=== PATIENT | female | born 1940 | race Caucasian/White ===

== ENCOUNTER 2020-05-23 12:27 | Outpatient (REF) | payer MEDICARE, BC, SELFPAY ==
[2020-05-23 14:48] LABS: Hematocrit 43.3 % (37-47); Hemoglobin 14.8 g/dl (12.0-16.0); Mean Corpuscular HGB Conc 34.2 g/dl (31.0-35.0); Mean Corpuscular Hemoglobin 36.3 pg (27.0-33.0); Mean Corpuscular Volume 106.1 fL (80-98); Platelet Count 227 X10*3/uL (160-400); Red Blood Count 4.08 X10*6/uL (4.20-5.50); Red Cell Distribution Width 11.9 % (11.0-16.0); White Blood Count 7.8 X10*3/uL (4.8-10.8)
[2020-05-23 15:12] LABS: Alanine Aminotransferase 24 U/L (0-31); Albumin Level 4.4 g/dL (3.5-5.0); Alkaline Phosphatase 82 U/L (39-117); Anion Gap 16 (12-20); Aspartate Amino Transferase 28 U/L (5-31); Bilirubin Total 2.4 mg/dL (0.0-1.0); Blood Urea Nitrogen 13 mg/dL (9-16); Calcium 8.9 mg/dL (8.4-10.2); Carbon Dioxide 23 mmol/L (22-29); Chloride 100 mmol/L (96-108); Cholesterol 237 mg/dL; Estimated Glomerular Filt Rate > 60; Glucose Fasting 96 mg/dL (60-99); HDL Cholesterol 77 mg/dL; LDL Cholesterol Calculated 140 mg/dl; Potassium 3.9 mmol/L (3.3-5.1); Sodium 135 mmol/L (135-145); Total Protein 7.3 g/dL (6.5-8.0); Triglycerides 104 mg/dL
[2020-05-23 15:33] LABS: Thyroid Stimulating Hormone 1.58 uIU/mL (0.32-4.0)
== END 2020-05-23 12:28 | disposition home or self-care (01) ==
LOC: HO.HMGCLDS 12:27
PROVIDERS: PCP Internal Medicine; Visit Provider Internal Medicine
DX: I10 Essential (primary) hypertension (principal); E55.9 Vitamin D deficiency, unspecified; E78.2 Mixed hyperlipidemia
CPT/HCPCS: 36415; 80053; 80061; 84443; 85027

== ENCOUNTER 2020-12-25 09:07 | Outpatient (REF) | payer MEDICARE, BC, SELFPAY ==
[2020-12-25 12:32] LABS: Alanine Aminotransferase 32 U/L (0-31); Albumin Level 4.4 g/dL (3.5-5.0); Alkaline Phosphatase 86 U/L (39-117); Anion Gap 16 (12-20); Aspartate Amino Transferase 30 U/L (5-31); Bilirubin Total 1.8 mg/dL (0.0-1.0); Blood Urea Nitrogen 11 mg/dL (9-16); Calcium 9.9 mg/dL (8.4-10.2); Carbon Dioxide 24 mmol/L (22-29); Chloride 103 mmol/L (96-108); Cholesterol 229 mg/dL; Estimated Glomerular Filt Rate > 60; Glucose Fasting 110 mg/dL (60-99); HDL Cholesterol 65 mg/dL; LDL Cholesterol Calculated 132 mg/dl; Potassium 5.3 mmol/L (3.3-5.1); Sodium 138 mmol/L (135-145); Total Protein 7.4 g/dL (6.5-8.0); Triglycerides 164 mg/dL
== END 2020-12-25 09:08 | disposition home or self-care (01) ==
LOC: HO.HMGCLDS 09:07
PROVIDERS: PCP Internal Medicine; Visit Provider Internal Medicine
DX: E78.5 Hyperlipidemia, unspecified (principal); I10 Essential (primary) hypertension
CPT/HCPCS: 36415; 80053; 80061

== ENCOUNTER 2021-06-25 09:52 | Outpatient (REF) | payer MEDICARE, BC, SELFPAY ==
[2021-06-25 11:53] LABS: Hematocrit 44.7 % (37.0-47.0); Hemoglobin 15.2 g/dl (12.0-16.0); Mean Corpuscular Hemoglobin 35.7 pg (27.0-33.0); Mean Corpuscular Volume 104.9 fL (80.0-98.0); Mean Platelet Volume 10.4 fL (9.4-12.3); Platelet Count 237 X10*3/uL (160-400); Red Blood Count 4.26 X10*6/uL (4.20-5.50); Red Cell Distribution Width 12.5 % (11.0-16.0); White Blood Count 7.1 X10*3/uL (4.8-10.8)
[2021-06-25 11:57] LABS: Alanine Aminotransferase 27 U/L (0-31); Albumin Level 4.1 g/dL (3.5-5.0); Alkaline Phosphatase 95 U/L (39-117); Anion Gap 15 (12-20); Aspartate Amino Transferase 29 U/L (5-31); Bilirubin Total 2.1 mg/dL (0.0-1.0); Blood Urea Nitrogen 8 mg/dL (9-16); Calcium 9.9 mg/dL (8.4-10.2); Carbon Dioxide 25 mmol/L (22-29); Chloride 101 mmol/L (96-108); Cholesterol 220 mg/dL; Estimated Glomerular Filt Rate > 60; Glucose Fasting 106 mg/dL (60-99); HDL Cholesterol 71 mg/dL; LDL Cholesterol Calculated 128 mg/dl; Potassium 4.4 mmol/L (3.3-5.1); Sodium 137 mmol/L (135-145); Total Protein 7.3 g/dL (6.5-8.0); Triglycerides 106 mg/dL
[2021-06-25 12:22] LABS: TSH reflex Free T4 1.86 uIU/mL (0.32-4.0); Vitamin D 25-OH Total 36.9 ng/mL (>30)
[2021-06-25 12:31] LABS: Folate 15.5 ng/mL (> or = 4.0); Vitamin B12 320 pg/mL (200-900)
== END 2021-06-25 09:53 | disposition home or self-care (01) ==
LOC: HO.HMGCLDS 09:52
PROVIDERS: Visit Provider Internal Medicine
DX: Z00.00 Encounter for general adult medical examination without abnormal findings (principal); I10 Essential (primary) hypertension; E78.5 Hyperlipidemia, unspecified
CPT/HCPCS: 36415; 80053; 80061; 82306; 82607; 82746; 84443; 85027

== ENCOUNTER 2022-06-10 11:16 | Outpatient (REF) | payer MEDICARE, BC, SELFPAY ==
[2022-06-10 14:05] LABS: MANUAL DIFF FLAG NO
[2022-06-10 14:14] LABS: Basophils Percent Auto 0.6 % (0-2); Eosinophils Absolute Auto 0.1 X10*3/uL (0.0-0.4); Eosinophils Percent Auto 1.5 % (0-4); Hematocrit 45.7 % (37.0-47.0); Hemoglobin 15.7 g/dl (12.0-16.0); Imm Gran Abs Auto 0.03 X10*3/uL (0.00-0.03); Imm Gran Pct Auto 0.4 % (0.0-0.4); Lymphocytes Absolute Auto 2.1 X10*3/uL (1.2-4.9); Lymphocytes Percent Auto 29.4 % (20-40); Mean Corpuscular HGB Conc 34.4 g/dl (31.0-35.0); Mean Corpuscular Hemoglobin 35.8 pg (27.0-33.0); Mean Corpuscular Volume 104.3 fL (80.0-98.0); Mean Platelet Volume 9.9 fL (9.4-12.3); Monocytes Absolute Auto 0.5 X10*3/uL (0.1-1.2); Monocytes Percent Auto 7.2 % (2-11); Neutrophils Absolute Auto 4.4 x10*3/uL (2.0-8.3); Neutrophils Percent Auto 60.9 % (45-73); Platelet Count 244 X10*3/uL (160-400); Red Blood Count 4.38 X10*6/uL (4.20-5.50); Red Cell Distribution Width 11.9 % (11.0-16.0); White Blood Count 7.3 X10*3/uL (4.8-10.8)
[2022-06-10 14:47] LABS: Alanine Aminotransferase 29 U/L (0-31); Alkaline Phosphatase 108 U/L (39-117); Anion Gap 13 (12-20); Aspartate Amino Transferase 27 U/L (5-31); Bilirubin Total 1.9 mg/dL (0.0-1.0); Blood Urea Nitrogen 8 mg/dL (9-16); Calcium 9.2 mg/dL (8.4-10.2); Carbon Dioxide 26 mmol/L (22-29); Chloride 103 mmol/L (96-108); Cholesterol 225 mg/dL; Estimated Glomerular Filt Rate > 60; Glucose Fasting 101 mg/dL (60-99); HDL Cholesterol 66 mg/dL; LDL Cholesterol Calculated 141 mg/dl; Potassium 3.9 mmol/L (3.3-5.1); Sodium 138 mmol/L (135-145); Total Protein 6.8 g/dL (6.5-8.0); Triglycerides 93 mg/dL
[2022-06-10 15:03] LABS: TSH reflex Free T4 1.89 uIU/mL (0.32-4.0); Vitamin D 25-OH Total 38.5 ng/mL (>30)
== END 2022-06-10 11:17 | disposition home or self-care (01) ==
LOC: HO.HMGCLDS 11:16
PROVIDERS: PCP Internal Medicine; Visit Provider Internal Medicine
DX: Z00.00 Encounter for general adult medical examination without abnormal findings (principal); E78.5 Hyperlipidemia, unspecified; I10 Essential (primary) hypertension
CPT/HCPCS: 36415; 80053; 80061; 82306; 84443; 85025

== ENCOUNTER 2022-12-09 08:39 | Outpatient (AMB) | payer MEDICARE, BC, SELFPAY ==
[2022-12-09 08:41] VITALS: BP 138/74; PULSE 75; O2SAT 97; BMI 28.1
--- NOTE | 2022-12-09 08:41 | AM.OFFVISMDC ---
Intake Vital Signs 12/09/22 08:41 Height 5 ft Weight 144 lb BMI 28.1 BP 138/74 Blood Pressure Location Lt brachial Position Sitting Pulse 75 Pulse Source Pulse Oximeter Pulse Oximetry (%) 97 Oxygen Delivery Method Room Air Intake Visit Reasons: SWV G0439/HTN Allergies amoxicillin Allergy (Unknown, Verified 12/09/22 08:44) Rash clavulanic acid [Augmentin] Allergy (Unknown, Verified 12/09/22 08:44) Rash Medication List - Last Reconciled 12/09/22 by Jud Nino MD amlodipine 2.5 mg PO DAILY calcipotriene 0.005% 1 appl topical BEDTIME clobetasol 0.05% 1 appl topical DAILY latanoprost 0.005% 1 drp ophthalmic (eye) BEDTIME olmesartan 20 mg PO DAILY pravastatin 40 mg PO DAILY HPI SWV G0439/HTN HPI Details Pt presents for annual. Patient's daughter is concerned about patient's declining memory, difficulty with word finding. Pt still lives alone, drives, cooks occasionally. She feels lonely since her but denies depressionInitiated the conversation about Advanced Directives. Advanced Directives help? patients prepare for current and future decisions about their medical treatment? and place of care. Discussed with patient that it is a process where a patients? current condition and prognosis are reviewed, their wishes for information? regarding their illness are elicited, and likely medical dilemmas are presented? and options discussed. The form can be amended as needed, reviewed yearly and? make changes as needed IPPE/AWV ? year old presents? for her ? Annual? Wellness Visit, initial visit.? Medical / Social History Reviewed? Past Medical History ?Yes? . ? [place]? of Care / Care Team list updated ?Yes . ? Surgical/Hospitalization? History ?Yes . ? Current Medications? (including OTC and supplements) ?Yes . ? Family History ?Yes? . ? Tobacco? Control form ?Yes . ? AUDIT-C (Alcohol use) form? ?Yes . ? Illicit drug use in Social? History ?Yes . ? Current diagnosis of? depression? ?No ? Appropriate PHQ2/PHQ9? completed ?Yes . ? Data entered by ?Medical? Police Inspector and reviewed by provider ? Fall Risk ? Fall? History? Have you had any falls with? injury in the past year? ?No . ? Have you had two or more? falls in the past year? ?No . ? Fall Risk Assessment: ?No? falls in the past year . ? HRA filled out by? the patient, reviewed by Provider and scanned. ? IPPE/AWV ? Balance? [place]? ?Yes . ? Tandem? walk ?Yes . ? Walk and? Turn ?Yes . ? Rise from? sit to stand ?Yes . ?Vision? Corrective? lens ?Yes ? Vision? screen ? Up-to-date, has an appointment [] for vision? screening and glaucoma screening ?Hearing? Whisper? test ?pass .? Initiated the conversation about Advanced Directives. Advanced Directives help? patients prepare for current and future decisions about their medical treatment? and place of care. Discussed with patient that it is a process where a patients? current condition and prognosis are reviewed, their wishes for information? regarding their illness are elicited, and likely medical dilemmas are presented? and options discussed. The form can be amended as needed, reviewed yearly and? make changes as needed Written? Plan?Completed. See Patient? Documents. [facility] Medical History Chronic bilateral low back pain Annual physical exam Aortic valve sclerosis IBS (irritable bowel syndrome) Osteopenia Hyperlipidemia HTN (hypertension) Family History Father Heart problem Mother Hypertension Family history of thyroid problem Brother Heart problem Social History Housing: House Alcohol intake: never Patient Tobacco Use Status: Never used Tobacco e-Cigarette/Vaping Use: Never Used Current occupational status: retired Cognitive needs: No Hearing needs: No Vision needs: Yes Questionnaire Medicare Wellness Checkup What is your age?: 78 or older What gender do you identify with?: female During the past 4 weeks, how much have you been bothered by emotional problems such as feeling anxious, depressed, irritable, sad or downhearted, and blue?: slightly During the past 4 weeks, has your physical & emotional health limited your social activities with family, friends, neighbors, or groups?: not at all During the past 4 weeks, how much bodily pain have you generally had?: mild pain During the past 4 weeks, was someone available to help you if you needed & wanted help?: yes, as much as I wanted During the past 4 weeks, what was the hardest physical activity you could do for at least 2 minutes?: heavy Can you get to places out of walking distance without help? (For eg., can you travel alone on buses, taxis or drive your car?): Yes Can you go shopping for groceries or clothes without someone's help?: Yes Can you prepare your own meals?: Yes Can you do your housework without help?: Yes Because of any health problems, do you need the help of another person with your personal care needs such as eating, bathing, dressing or getting around the house?: No Can you handle your own money without help?: Yes During the past 4 weeks, how would you rate your health in general?: very good During the past 4 weeks how have things been going for you?: pretty well Are you having difficulties driving your car?: no Do you always fasten your seat belt when you are in a car?: yes, usually During past 4 weeks, have you been bothered by the following: never: Falling or dizzy when standing up, Sexual problems?, Trouble eating well?, Teeth or denture problems?, Problems using the telephone? and Tiredness or fatigue? Have you fallen 2 or more times in the past year?: No Are you afraid of falling?: No Are you a smoker?: no During the past 4 weeks, how many drinks of wine, beer, or other alcoholic beverages did you have?: 2-5 drinks per week Do you exercise for about 20 minutes 3 or more times a week?: no, I usually do not exercise this much Have you been given information to help with the following?: no: Hazards in your house that might hurt you? and no: Keeping track of your medications? How often do you have trouble taking medicines the way you have been told to take them?: I always take medicine as prescribed How confident are you that you can control & manage most of your health problems?: very confident What is your race?: White Mini Mental State Exam (MMSE) Orientation What is the (year) (season) (date) (day) (month)?: year, season, date, day and month Where are we (state) (county) (town or city) (hospital) (floor)?: state, county, town or city, hospital/clinic and floor Registration Name of 3 unrelated objects clearly and slowly, then ask patient to repeat all 3 of them. (1st repeat determines score. Make sure they can repeat all three): object 1, object 2 and object 3 Attention & Calculation (CHOOSE ONE) Ask pt to begin with 100 & count backward by 7. Stop after 5 repeats. If pt cannot ask them to spell the word WORLD backward.: 93 Recall Ask patient to repeat the 3 items from question #3.: object 1, object 2 and object 3 Language Show patient a wristwatch & ask what it is. Repeat for pencil.: watch and pencil Ask the patient to repeat the phrase 'No ifs, ands, or buts' after you.: correct Ask the patient to 'take a piece of paper with their right hand' 'fold paper in half' 'place paper on floor': take paper in right hand, fold paper in half and place paper on floor Print the sentence 'CLOSE YOUR EYES' on a piece. If patient actually closes eyes then score.: followed written direction Give patient a blank piece of paper & ask to write a sentence. Score if it contains a noun & verb.: sentence contains subject and verb Score Score: 25 Activity of Daily Living Bathing - sponge bath, tub bath or shower: receives no assistance (gets in/out by self, if usual bathing means Dressing - getting clothes from closets & drawers, including inner/outer garments & fasteners.: gets clothes & gets completely dressed without help Toileting - going to the 'toilet room' for urine/bowel elimination & cleaning self/arranging clothes: goes to toilet room, cleans self, arranges clothes without help Transfer: moves in & out of bed and chair without help (may use support object) Continence: controls urination/bowel movements completely by self Feeding: feeds self without help Total Score: 0 Information obtained from: patient Using telephone: independent Traveling: independent Shopping: independent Preparing meals: independent Housework: independent Taking medicine: independent Managing money: independent PHQ-9 Over the last 2 weeks, how often have you been bothered by any of the following problems? 1. Little interest or pleasure in doing things: several days 2. Feeling down, depressed, or hopeless: several days 3. Trouble falling or staying asleep, or sleeping too much: not at all 4. Feeling tired or having little energy: not at all 5. Poor appetite or overeating: not at all 6. Feeling bad about yourself - or that you are a failure or have let yourself or your family down: not at all 7. Trouble concentrating on things, such as reading the newspaper or watching television: not at all 8. Moving or speaking so slowly that other people could have noticed. Or the opposite - being so fidgety or restless that you have been moving around a lot more than usual: not at all 9. Thoughts that you would be better off or of hurting yourself in some way: not at all Total score: 2 Depression Screening Interpretation: Negative Source: Developed by Drs. Davey Quevedo, Gi Lamas, Wilson Ramirez and colleagues, with an educational chandrakant from [employer]. Review of Systems Const All systems reviewed & are unremarkable except as noted in HPI and below Reports no additional complaints Eyes Reports no additional complaints ENT Reports no additional complaints Card Reports no additional complaints Resp Reports no additional complaints GI Reports no additional complaints Reports no additional complaints Physical Exam Vital Signs: Last Vital Signs Pulse 75 12/09/22 08:41 BP 138/74 12/09/22 08:41 Pulse Ox 97 12/09/22 08:41 Oxygen Delivery Method Room Air 12/09/22 08:41 BMI result Body Mass Index 28.1 Const General: no acute distress HEENT Head: Yes normal to inspection Ears: hearing grossly normal bilaterally Neck Neck: Yes no lymphadenopathy and Yes supple Resp Effort & Inspection: normal respiratory effort Auscultation: clear to auscultation bilaterally Cardio Rhythm: regular rhythm Heart sounds: S1 normal heart sound present and S2 normal heart sound present GI Inspection: Yes normal to inspection Palpation (GI): Soft to palpation Percussion: Yes normal to percussion Auscultation: normal bowel sounds Extrem General: Yes no clubbing, cyanosis or edema Assessment & Plan Assessment & Plan (1) Annual physical exam: Code(s): Z00.00 - Encounter for general adult medical examination without abnormal findings Plan: well balanced, diet, regular physical activity, social interactions discussed. check labs today f/u 6 months (2) Hyperlipidemia: Code(s): E78.5 - Hyperlipidemia, unspecified (3) HTN (hypertension): Code(s): I10 - Essential (primary) hypertension (4) Memory loss: Code(s): R41.3 - Other amnesia Plan: check TSH, vit B12, and D level Orders: Orders Comprehensive [place]. Panel Fast Today E78.5 - Hyperlipidemia, unspecified, I10 - Essential (primary) hypertension, R41.3 - Other amnesia, Z00.00 - Encounter for general adult medical examination without abnormal findings Vitamin B12 and Folate Today E53.8 - Deficiency of other specified B group vitamins, E55.9 - Vitamin D deficiency, unspecified, E78.5 - Hyperlipidemia, unspecified, I10 - Essential (primary) hypertension, R41.3 - Other amnesia Complete Blood Count Auto Diff Today E78.5 - Hyperlipidemia, unspecified, I10 - Essential (primary) hypertension, R41.3 - Other amnesia, Z00.00 - Encounter for general adult medical examination without abnormal findings Lipid Panel Today E78.5 - Hyperlipidemia, unspecified, I10 - Essential (primary) hypertension, R41.3 - Other amnesia, Z00.00 - Encounter for general adult medical examination without abnormal findings TSH reflex Free T4 Today E78.5 - Hyperlipidemia, unspecified, I10 - Essential (primary) hypertension, R41.3 - Other amnesia, Z00.00 - Encounter for general adult medical examination without abnormal findings Vitamin D 25-OH Total Today E55.9 - Vitamin D deficiency, unspecified, E78.5 - Hyperlipidemia, unspecified, I10 - Essential (primary) hypertension, R41.3 - Other amnesia Medications: Refilled calcipotriene 0.005% 1 appl topical BEDTIME 60 grams 3RF clobetasol 0.05% 1 appl topical DAILY 60 grams 3RF Quality Reporting (2019) Depression/Bipolar (159/160/161/177) PHQ-9: Total score: 2 Coding Level of Care Code Medicare Subsequent (G0439) Diagnoses Annual physical exam Z00.00 Hyperlipidemia E78.5 HTN (hypertension) I10 Memory loss R41.3 CPT Codes Advance Care Planning - Time spent: 1-15 minutes, not on file ([id number]) Advance Care Planning Advance Care Planning discussion: Exists, not on file Forms completed: Health Care Proxy Time spent: 1-15 minutes, not on file
== END 2022-12-09 09:35 | disposition home or self-care (01) ==
PROVIDERS: Visit Provider Internal Medicine
DX: Z00.00 Encounter for general adult medical examination without abnormal findings (principal); E78.5 Hyperlipidemia, unspecified; I10 Essential (primary) hypertension; R41.3 Other amnesia
CPT/HCPCS: 1124F; G0439

== ENCOUNTER 2022-12-09 09:23 | Outpatient (REF) | payer MEDICARE, BC, SELFPAY ==
[2022-12-09 11:15] LABS: MANUAL DIFF FLAG NO
[2022-12-09 11:24] LABS: Basophils Percent Auto 0.6 % (0-2); Eosinophils Absolute Auto 0.1 X10*3/uL (0.0-0.4); Eosinophils Percent Auto 1.3 % (0-4); Hematocrit 44.2 % (37.0-47.0); Hemoglobin 15.2 g/dl (12.0-16.0); Imm Gran Abs Auto 0.02 X10*3/uL (0.00-0.03); Imm Gran Pct Auto 0.4 % (0.0-0.4); Lymphocytes Absolute Auto 1.4 X10*3/uL (1.2-4.9); Lymphocytes Percent Auto 26.4 % (20-40); Mean Corpuscular HGB Conc 34.4 g/dl (31.0-35.0); Mean Corpuscular Hemoglobin 36.9 pg (27.0-33.0); Mean Corpuscular Volume 107.3 fL (80.0-98.0); Mean Platelet Volume 10.1 fL (9.4-12.3); Monocytes Absolute Auto 0.5 X10*3/uL (0.1-1.2); Monocytes Percent Auto 8.9 % (2-11); Neutrophils Absolute Auto 3.3 x10*3/uL (2.0-8.3); Neutrophils Percent Auto 62.4 % (45-73); Platelet Count 228 X10*3/uL (160-400); Red Blood Count 4.12 X10*6/uL (4.20-5.50); Red Cell Distribution Width 11.9 % (11.0-16.0); White Blood Count 5.3 X10*3/uL (4.8-10.8)
[2022-12-09 12:47] LABS: Alanine Aminotransferase 28 U/L (0-31); Albumin Level 4.2 g/dL (3.5-5.0); Alkaline Phosphatase 77 U/L (39-117); Anion Gap 15 (12-20); Aspartate Amino Transferase 33 U/L (5-31); Bilirubin Total 1.5 mg/dL (0.0-1.0); Blood Urea Nitrogen 13 mg/dL (9-16); Calcium 9.7 mg/dL (8.4-10.2); Carbon Dioxide 26 mmol/L (22-29); Chloride 103 mmol/L (96-108); Cholesterol 229 mg/dL (<200); Estimated Glomerular Filt Rate > 60; Glucose Fasting 97 mg/dL (60-99); HDL Cholesterol 68 mg/dL (>40); LDL Cholesterol Calculated 143 mg/dL (<100); Potassium 4.3 mmol/L (3.3-5.1); Sodium 140 mmol/L (135-145); Total Protein 7.5 g/dL (6.5-8.0); Triglycerides 94 mg/dL (<150)
[2022-12-09 13:06] LABS: TSH reflex Free T4 1.57 uIU/mL (0.32-4.0); Vitamin D 25-OH Total 24.7 ng/mL (>30)
[2022-12-09 13:16] LABS: Vitamin B12 324 pg/mL (200-900)
== END 2022-12-09 09:24 | disposition home or self-care (01) ==
LOC: HO.HMGCLDS 09:23
PROVIDERS: PCP Internal Medicine; Visit Provider Internal Medicine
DX: Z00.00 Encounter for general adult medical examination without abnormal findings (principal); E78.5 Hyperlipidemia, unspecified; I10 Essential (primary) hypertension; R41.3 Other amnesia; E55.9 Vitamin D deficiency, unspecified; E53.8 Deficiency of other specified B group vitamins
CPT/HCPCS: 36415; 80053; 80061; 82306; 82607; 82746; 84443; 85025

== ENCOUNTER 2023-06-16 09:47 | Outpatient (AMB) | payer MEDICARE, BC, SELFPAY ==
[2023-06-16 09:49] VITALS: BP 126/80; PULSE 88; O2SAT 95; BMI 29.7
--- NOTE | 2023-06-16 09:49 | MHC.PC.OV ---
Vital Signs 06/16/23 09:49 Height 5 ft Weight 152 lb BMI 29.7 BP 126/80 Blood Pressure Location Lt brachial Position Sitting Pulse 88 Pulse Source Pulse Oximeter Pulse Oximetry (%) 95 Oxygen Delivery Method Room Air Intake Visit Reasons: 6 month follow up Intake Note: Pt is here today for 6 months follow up visit. Allergies amoxicillin Allergy (Unknown, Verified 06/16/23 09:52) Rash clavulanic acid [Augmentin] Allergy (Unknown, Verified 06/16/23 09:52) Rash Medication List - Last Reconciled 06/16/23 by Jud Nino MD amlodipine 2.5 mg PO DAILY calcipotriene 0.005% 1 appl topical BEDTIME clobetasol 0.05% 1 appl topical DAILY latanoprost 0.005% 1 drp ophthalmic (eye) BEDTIME olmesartan 20 mg PO DAILY pravastatin 40 mg PO DAILY Tobacco use date assessed: 06/16/23 Fall risk assessment: No Falls in past year Last assessed Fall Risk: 06/16/23 Dental Screening Dental Screen Date: 06/16/23 Did you have a dental visit in the last 12 months?: Yes Did you have a dental problem in the last 6 months where you did not have access to dental care?: No Was dental information given to patient?: Patient has dentist HPI 6 month follow up HPI Details PATIENT PRESENTS FOR THE FOLLOW-UP ON HYPERTENSION HYPERLIPIDEMIA, stable on current medications. Patient's granddaughter is getting in September [facility] Medical History Chronic bilateral low back pain Annual physical exam Aortic valve sclerosis IBS (irritable bowel syndrome) Osteopenia Hyperlipidemia HTN (hypertension) Surgical History Hx of section Hx of appendectomy Family History Father Heart problem Mother Hypertension Family history of thyroid problem Brother Heart problem Social History Housing: House Alcohol intake: never Patient Tobacco Use Status: Never used Tobacco e-Cigarette/Vaping Use: Never Used service: No Current occupational status: retired Cognitive needs: No Hearing needs: No Vision needs: Yes Questionnaire PHQ-9 Over the last 2 weeks, how often have you been bothered by any of the following problems? 1. Little interest or pleasure in doing things: several days 2. Feeling down, depressed, or hopeless: several days 3. Trouble falling or staying asleep, or sleeping too much: not at all 4. Feeling tired or having little energy: not at all 5. Poor appetite or overeating: not at all 6. Feeling bad about yourself - or that you are a failure or have let yourself or your family down: not at all 7. Trouble concentrating on things, such as reading the newspaper or watching television: not at all 8. Moving or speaking so slowly that other people could have noticed. Or the opposite - being so fidgety or restless that you have been moving around a lot more than usual: not at all 9. Thoughts that you would be better off or of hurting yourself in some way: not at all Total score: 2 Depression Screening Interpretation: Negative Depression Screening Done: Yes Source: Developed by Drs. Davey Quevedo, Gi Lamas, Wilson Ramirez and colleagues, with an educational chandrakant from [employer] Thrive Questionnaire Date Thrive assessed: 06/16/23 I am a: Patient What is your living situation today?: I have a steady place to live Within the past 12 months, did the food you bought not last and you didn't have the money to get more?: Never true Within the past 12 months, did you worry whether your food would run out before you got money to buy more?: Never true Do you have trouble paying for medicines?: No Do you have trouble getting transportation to medical appointments?: No Do you have trouble paying your heating and electricity bill?: No Do you have trouble taking care of your child, family member or friend?: No Do you have trouble with day-to-day activities such as bathing, preparing meals, shopping, managing finances, etc.?: No Are you currently unemployed and looking for a job?: No Are you interested in more education?: No Please select the resources that you would like help with: None Currently or been in a relationship where the following occur: no concerns reported THRIVE Score: 0 AUDIT C Alcohol Use Questionnaire (AUDIT-C) 1. How often do you have a drink containing alcohol?: Monthly or less 2. How many drinks containing alcohol do you have on a typical day when you are drinking?: 1 or 2 3. How often do you have six or more drinks on one occasion?: Never Total Score: 1 ASAF-7 AMB Questionnaire ASAF-7 Date ASAF - 7 assessed: 06/16/23 Feeling nervous, anxious, or on edge: 0 = Not at all Not being able to stop or control worryin = Not at all Worrying too much about different things: 0 = Not at all Trouble relaxin = Not at all Being so restless that it is hard to sit still: 0 = Not at all Becoming easily annoyed or irritable: 0 = Not at all Feeling afraid as if something awful might happen: 0 = Not at all Total ASAF-7 score (0-4 normal; 5-9 mild; 10-14 moderate; 15-21 severe): 0 Source: Developed by Drs. Davey Quevedo, Gi Lamas, Wilson Ramirez and colleagues, with an educational chandarkant from [employer]. Review of Systems Const All systems reviewed & are unremarkable except as noted in HPI and below Eyes Reports no additional complaints ENT Reports no additional complaints Card Reports no additional complaints Resp Reports no additional complaints GI Reports no additional complaints Reports no additional complaints Physical exam (Primary Care) Vital Signs: Last Vital Signs Pulse 88 06/16/23 09:49 BP 126/80 06/16/23 09:49 Pulse Ox 95 06/16/23 09:49 Oxygen Delivery Method Room Air 06/16/23 09:49 BMI result Body Mass Index 29.7 Tobacco/Smoking Status: Tobacco use Status Tobacco use date assessed 06/16/23 06/16/23 09:55 Patient Tobacco Use Status Never used Tobacco 06/16/23 09:55 e-Cigarette/Vaping Use Never Used 06/16/23 09:55 PHQ-9: PHQ-9 Score PHQ-9: Total score 2 06/16/23 09:55 Depression Screening Interpretation: Negative Thrive Assessment: Date of Thrive Assessment Date Thrive assessed 06/16/23 06/16/23 09:55 Currently or been in a relationship where the following occur: no concerns reported Const General: no acute distress HENMT Head: Yes normal to inspection Throat: Yes posterior oropharynx normal Eyes General: appearance normal, both eyes and all related structures Neck Neck: Yes no lymphadenopathy and Yes supple Resp Effort & Inspection: normal respiratory effort Auscultation: clear to auscultation bilaterally Cardio Rhythm: regular rhythm Heart sounds: S1 normal heart sound present and S2 normal heart sound present GI Inspection: Yes normal to inspection Palpation (GI): Soft to palpation Percussion: Yes normal to percussion Auscultation: normal bowel sounds Assessment and Plan Assessment & Plan (1) Vitamin D deficiency: Code(s): E55.9 - Vitamin D deficiency, unspecified Plan: Restart vitamin-D supplement (2) Vitamin B12 deficiency: Code(s): E53.8 - Deficiency of other specified B group vitamins Plan: Continue B12 supplement (3) Hyperlipidemia: Code(s): E78.5 - Hyperlipidemia, unspecified Plan: Change pravastatin to atorvastatin 20 mg a day and check lipid profile in 2 months (4) HTN (hypertension): Code(s): I10 - Essential (primary) hypertension Plan: Continue current medications, return in December for physical Orders: Orders Lipid Panel 2 Months E53.8 - Deficiency of other specified B group vitamins, E55.9 - Vitamin D deficiency, unspecified, E78.5 - Hyperlipidemia, unspecified, I10 - Essential (primary) hypertension Comprehensive [place]. Panel Fast 2 Months E53.8 - Deficiency of other specified B group vitamins, E55.9 - Vitamin D deficiency, unspecified, E78.5 - Hyperlipidemia, unspecified, I10 - Essential (primary) hypertension Vitamin B12 and Folate 2 Months E53.8 - Deficiency of other specified B group vitamins, E55.9 - Vitamin D deficiency, unspecified, E78.5 - Hyperlipidemia, unspecified, I10 - Essential (primary) hypertension Comprehensive [place]. Panel Fast 6 Months E78.5 - Hyperlipidemia, unspecified, I10 - Essential (primary) hypertension Vitamin D 25-OH Total 2 Months E53.8 - Deficiency of other specified B group vitamins, E55.9 - Vitamin D deficiency, unspecified, E78.5 - Hyperlipidemia, unspecified, I10 - Essential (primary) hypertension Complete Blood Count Auto Diff 2 Months E53.8 - Deficiency of other specified B group vitamins, E55.9 - Vitamin D deficiency, unspecified, E78.5 - Hyperlipidemia, unspecified, I10 - Essential (primary) hypertension Lipid Panel 6 Months E78.5 - Hyperlipidemia, unspecified, I10 - Essential (primary) hypertension Medications: New atorvastatin 20 mg PO BEDTIME 90 tabs 2RF atorvastatin 20 mg PO BEDTIME 90 tabs 2RF Refilled amlodipine 2.5 mg PO DAILY 90 tabs 3RF amlodipine 2.5 mg PO DAILY 90 tabs 3RF olmesartan 20 mg PO DAILY 90 tabs 3RF I10 - Essential (primary) hypertension olmesartan 20 mg PO DAILY 90 tabs 3RF I10 - Essential (primary) hypertension Coding Level of Care Code Est Pt Level 4 (05416) Diagnoses Vitamin D deficiency E55.9 Vitamin B12 deficiency E53.8 Hyperlipidemia E78.5 HTN (hypertension) I10
== END 2023-06-16 10:40 | disposition home or self-care (01) ==
PROVIDERS: PCP Internal Medicine; Visit Provider Internal Medicine
DX: E55.9 Vitamin D deficiency, unspecified (principal); E53.8 Deficiency of other specified B group vitamins; E78.5 Hyperlipidemia, unspecified; I10 Essential (primary) hypertension
CPT/HCPCS: 99214

== ENCOUNTER 2023-10-19 11:11 | Outpatient (AMB) | payer MEDICARE, BC, SELFPAY ==
[2023-10-19 11:31] VITALS: BP 114/58; PULSE 77; O2SAT 97; BMI 26.8
--- NOTE | 2023-10-19 11:31 | MHC.PC.OV ---
Vital Signs 10/19/23 11:31 Height 5 ft Weight 137 lb BMI 26.8 BP 114/58 L Blood Pressure Location Rt brachial Position Sitting Pulse 77 Pulse Source Pulse Oximeter Pulse Oximetry (%) 97 Oxygen Delivery Method Room Air Intake Visit Reasons: Regular visit Intake Note: Pt is here today for a Hospital follow up visit. Allergies amoxicillin Allergy (Unknown, Verified 10/19/23 11:34) Rash clavulanic acid [Augmentin] Allergy (Unknown, Verified 10/19/23 11:34) Rash Medication List - Last Reconciled 10/19/23 by Jud Nino MD amlodipine 2.5 mg PO DAILY atorvastatin 20 mg PO BEDTIME calcipotriene 0.005% 1 appl topical BEDTIME clobetasol 0.05% 1 appl topical DAILY latanoprost 0.005% 1 drp ophthalmic (eye) BEDTIME olmesartan 20 mg PO DAILY Tobacco use date assessed: 10/19/23 Fall risk assessment: No Falls in past year Last assessed Fall Risk: 10/19/23 Dental Screening Dental Screen Date: 06/16/23 HPI Regular visit HPI Details Patient presents for the follow-up of hospitalization at [facility] for hypotension acute renal failure dehydration. Renal function improved with IV fluids. Sepsis workup was negative. CTA of the head was negative for significant stenosis in major arteries in the head and neck and brain MRI was negative for acute CVA. Patient feels better. She denies episodes of dizziness lightheadedness chest pain palpitations or shortness of breath. she lives alone but her daughter checks on her regularly. [facility] Medical History Chronic bilateral low back pain Annual physical exam Aortic valve sclerosis IBS (irritable bowel syndrome) Osteopenia Hyperlipidemia HTN (hypertension) Surgical History Hx of section Hx of appendectomy Family History Father Heart problem Mother Hypertension Family history of thyroid problem Brother Heart problem Social History Housing: House Alcohol intake: never Patient Tobacco Use Status: Never used Tobacco e-Cigarette/Vaping Use: Never Used service: No Current occupational status: retired Cognitive needs: No Hearing needs: No Vision needs: Yes Questionnaire Thrive Questionnaire Date Thrive assessed: 06/16/23 ASAF-7 AMB Questionnaire ASAF-7 Date ASAF - 7 assessed: 06/16/23 Source: Developed by Drs. Davey Quevedo, Gi Lamas, Wilson Ramirez and colleagues, with an educational chandrakant from [employer]. Review of Systems Const All systems reviewed & are unremarkable except as noted in HPI and below Eyes Reports no additional complaints ENT Reports no additional complaints Card Reports no additional complaints Resp Reports no additional complaints GI Reports no additional complaints Reports no additional complaints Physical exam (Primary Care) Vital Signs: Last Vital Signs Pulse 77 10/19/23 11:31 BP 114/58 L 10/19/23 11:31 Pulse Ox 97 10/19/23 11:31 Oxygen Delivery Method Room Air 10/19/23 11:31 BMI result Body Mass Index 26.8 Tobacco/Smoking Status: Tobacco use Status Tobacco use date assessed 10/19/23 10/19/23 11:38 Patient Tobacco Use Status Never used Tobacco 10/19/23 11:38 e-Cigarette/Vaping Use Never Used 10/19/23 11:38 Thrive Assessment: Date of Thrive Assessment Date Thrive assessed 06/16/23 10/19/23 11:38 Const General: no acute distress HENMT Head: Yes normal to inspection Assessment and Plan Assessment & Plan (1) Hyperlipidemia: Code(s): E78.5 - Hyperlipidemia, unspecified Plan: cont statin (2) HTN (hypertension): Code(s): I10 - Essential (primary) hypertension Plan: Blood pressure is low and olmesartan will be decreased to 5 mg a day patient will continue amlodipine and will follow-up in December (3) Vitamin B12 deficiency: Code(s): E53.8 - Deficiency of other specified B group vitamins Plan: Take vitamin B12 (4) Vitamin D deficiency: Code(s): E55.9 - Vitamin D deficiency, unspecified Plan: Check vitamin-D level (5) Heart murmur: Code(s): R01.1 - Cardiac murmur, unspecified Plan: Obtain echocardiogram (6) Acute kidney failure: Comment: Due to dehydration and hypotension, Hospitalization at [facility] 10/03/23 Code(s): N17.9 - Acute kidney failure, unspecified Plan: Check comprehensive panel today (7) Poor balance: Code(s): R26.89 - Other abnormalities of gait and mobility Plan: Patient was advised to have physical therapy but she declined. She was advised to exercise at [facility] at least 3 times a week Orders: Orders Comprehensive Met. Panel Today E53.8 - Deficiency of other specified B group vitamins, E55.9 - Vitamin D deficiency, unspecified, E78.5 - Hyperlipidemia, unspecified, I10 - Essential (primary) hypertension Vitamin B12 and Folate Today E53.8 - Deficiency of other specified B group vitamins, E55.9 - Vitamin D deficiency, unspecified, E78.5 - Hyperlipidemia, unspecified, I10 - Essential (primary) hypertension Vitamin D 25-OH Total Today E55.9 - Vitamin D deficiency, unspecified Complete Blood Count Auto Diff Today E53.8 - Deficiency of other specified B group vitamins, E55.9 - Vitamin D deficiency, unspecified, E78.5 - Hyperlipidemia, unspecified, I10 - Essential (primary) hypertension TSH reflex Free T4 Today E53.8 - Deficiency of other specified B group vitamins, E55.9 - Vitamin D deficiency, unspecified, E78.5 - Hyperlipidemia, unspecified, I10 - Essential (primary) hypertension CA echo transthoracic complete Today R01.1 - Cardiac murmur, unspecified Medications: New olmesartan 5 mg PO DAILY 90 tabs 0RF Discontinued olmesartan Discontinued Reason: Doctor's Order 20 mg PO DAILY 90 tabs 3RF I10 - Essential (primary) hypertension Coding Level of Care Code Est Pt Level 4 (50804) Diagnoses Hyperlipidemia E78.5 HTN (hypertension) I10 Vitamin B12 deficiency E53.8 Vitamin D deficiency E55.9 Heart murmur R01.1 Acute kidney failure N17.9 Poor balance R26.89
== END 2023-10-19 12:47 | disposition home or self-care (01) ==
PROVIDERS: PCP Internal Medicine; Visit Provider Internal Medicine
DX: E78.5 Hyperlipidemia, unspecified (principal); I10 Essential (primary) hypertension; E53.8 Deficiency of other specified B group vitamins; E55.9 Vitamin D deficiency, unspecified; R01.1 Cardiac murmur, unspecified; N17.9 Acute kidney failure, unspecified; R26.89 Other abnormalities of gait and mobility
CPT/HCPCS: 99214

== ENCOUNTER 2023-10-19 12:34 | Outpatient (REF) | payer MEDICARE, BC, SELFPAY ==
[2023-10-19 16:17] LABS: MANUAL DIFF FLAG NO
[2023-10-19 16:23] LABS: Basophils Percent Auto 0.4 % (0-2); Eosinophils Absolute Auto 0.1 X10*3/uL (0.0-0.4); Eosinophils Percent Auto 0.7 % (0-4); Hematocrit 43.1 % (37.0-47.0); Hemoglobin 14.9 g/dl (12.0-16.0); Imm Gran Abs Auto 0.09 X10*3/uL (0.00-0.03); Imm Gran Pct Auto 0.9 % (0.0-0.4); Lymphocytes Absolute Auto 1.1 X10*3/uL (1.2-4.9); Lymphocytes Percent Auto 11.7 % (20-40); Mean Corpuscular HGB Conc 34.6 g/dl (31.0-35.0); Mean Corpuscular Hemoglobin 36.4 pg (27.0-33.0); Mean Corpuscular Volume 105.4 fL (80.0-98.0); Mean Platelet Volume 10.2 fL (9.4-12.3); Monocytes Absolute Auto 0.7 X10*3/uL (0.1-1.2); Monocytes Percent Auto 7.5 % (2-11); Neutrophils Absolute Auto 7.7 x10*3/uL (2.0-8.3); Neutrophils Percent Auto 78.8 % (45-73); Platelet Count 404 X10*3/uL (160-400); Red Blood Count 4.09 X10*6/uL (4.20-5.50); Red Cell Distribution Width 11.9 % (11.0-16.0); White Blood Count 9.8 X10*3/uL (4.8-10.8)
[2023-10-19 17:05] LABS: Alanine Aminotransferase 25 U/L (0-31); Albumin Level 4.1 g/dL (3.5-5.0); Alkaline Phosphatase 103 U/L (39-117); Anion Gap 21 (12-20); Aspartate Amino Transferase 33 U/L (5-31); Bilirubin Total 1.3 mg/dL (0.0-1.0); Blood Urea Nitrogen 20 mg/dL (9-16); Calcium 10.3 mg/dL (8.4-10.2); Carbon Dioxide 18 mmol/L (22-29); Chloride 100 mmol/L (96-108); Estimated Glomerular Filt Rate 55; Glucose Random 95 mg/dL (60-115); Potassium 5.2 mmol/L (3.3-5.1); Sodium 134 mmol/L (135-145)
[2023-10-19 17:08] LABS: Vitamin D 25-OH Total 20.6 ng/mL (>30)
[2023-10-19 17:27] LABS: Folate 6.6 ng/mL (> or = 4.0); Vitamin B12 509 pg/mL (200-900)
== END 2023-10-19 12:35 | disposition home or self-care (01) ==
LOC: HO.HMGCLDS 12:34
PROVIDERS: PCP Internal Medicine; Visit Provider Internal Medicine
DX: E78.5 Hyperlipidemia, unspecified (principal); I10 Essential (primary) hypertension; E53.8 Deficiency of other specified B group vitamins; E55.9 Vitamin D deficiency, unspecified
CPT/HCPCS: 36415; 80053; 82306; 82607; 82746; 84443; 85025

== ENCOUNTER 2023-12-01 14:06 | Outpatient (AMB) | payer MEDICARE, BC, SELFPAY ==
--- NOTE | 2023-12-01 14:08 | MHC.PC.OV ---
Vital Signs 12/01/23 14:09 Height 5 ft Weight 137 lb BMI 26.8 BP 134/74 Blood Pressure Location Rt brachial Position Sitting Pulse 84 Pulse Source Pulse Oximeter Pulse Oximetry (%) 99 Oxygen Delivery Method Room Air Intake Visit Reasons: Hospital follow up Allergies amoxicillin Allergy (Unknown, Verified 12/01/23 14:11) Rash clavulanic acid [Augmentin] Allergy (Unknown, Verified 12/01/23 14:11) Rash Medication List - Last Reconciled 12/01/23 by Jud Nino MD amlodipine 2.5 mg PO DAILY atorvastatin 20 mg PO BEDTIME calcipotriene 0.005% 1 appl topical BEDTIME celecoxib (Celebrex) 200 mg PO BEDTIME clobetasol 0.05% 1 appl topical DAILY latanoprost 0.005% 1 drp ophthalmic (eye) BEDTIME lidocaine 5% 1 patch topical DAILY magnesium oxide 400 mg PO BID mirtazapine 7.5 mg PO DAILY [id number]-calcium-mins 9 mg iron-400 mcg (Therapeutic-M) 1 tab PO DAILY pantoprazole 40 mg PO DAILY sertraline 25 mg PO DAILY Tobacco use date assessed: 12/01/23 Dental Screening Dental Screen Date: 06/16/23 [facility] Hospital follow up HPI Details Patient presents for the follow-up of inpatient SNF stay for 9 days after visit to the ER for generalized weakness UTI and hypotension. Patient is ambulating with a walker and lives at home but her daughter checks on her twice a day. She reports persistent left groin pain worse when walking. She denies lower back pain weakness or numbness in extremities. [facility] Medical History Chronic bilateral low back pain Annual physical exam Aortic valve sclerosis IBS (irritable bowel syndrome) Osteopenia Hyperlipidemia HTN (hypertension) Surgical History Hx of section Hx of appendectomy Family History Father Heart problem Mother Hypertension Family history of thyroid problem Brother Heart problem Social History Housing: House Alcohol intake: never Patient Tobacco Use Status: Never used Tobacco e-Cigarette/Vaping Use: Never Used service: No Current occupational status: retired Cognitive needs: No Hearing needs: No Vision needs: Yes Questionnaire PHQ-9 Over the last 2 weeks, how often have you been bothered by any of the following problems? 1. Little interest or pleasure in doing things: nearly every day 2. Feeling down, depressed, or hopeless: nearly every day 3. Trouble falling or staying asleep, or sleeping too much: not at all 4. Feeling tired or having little energy: nearly every day 5. Poor appetite or overeating: nearly every day 6. Feeling bad about yourself - or that you are a failure or have let yourself or your family down: not at all 7. Trouble concentrating on things, such as reading the newspaper or watching television: not at all Source: Developed by Drs. Davey Quevedo, Gi Lamas, Wilson Ramirez and colleagues, with an educational chandrakant from [email or web address]. Thrive Questionnaire Date Thrive assessed: 06/16/23 I am a: Patient What is your living situation today?: I have a steady place to live Within the past 12 months, did the food you bought not last and you didn't have the money to get more?: Never true Within the past 12 months, did you worry whether your food would run out before you got money to buy more?: Never true Do you have trouble paying for medicines?: No Do you have trouble getting transportation to medical appointments?: No Do you have trouble paying your heating and electricity bill?: No Do you have trouble taking care of your child, family member or friend?: No Do you have trouble with day-to-day activities such as bathing, preparing meals, shopping, managing finances, etc.?: Yes Are you interested in more education?: Yes Please select the resources that you would like help with: Care for elder or disabled Currently or been in a relationship where the following occur: No concerns reported THRIVE Score: 0 AUDIT C Alcohol Use Questionnaire (AUDIT-C) 1. How often do you have a drink containing alcohol?: Never Total Score: 0 ASAF-7 AMB Questionnaire ASAF-7 Date ASAF - 7 assessed: 06/16/23 Feeling nervous, anxious, or on edge: 0 = Not at all Not being able to stop or control worryin = Not at all Worrying too much about different things: 0 = Not at all Trouble relaxin = Not at all Being so restless that it is hard to sit still: 0 = Not at all Becoming easily annoyed or irritable: 3 = Nearly every day Feeling afraid as if something awful might happen: 0 = Not at all Total ASAF-7 score (0-4 normal; 5-9 mild; 10-14 moderate; 15-21 severe): 3 Source: Developed by Drs. Davey Quevedo, Gi Lamas, Wilson Ramirez and colleagues, with an educational chandrakant from [email or web address]. Review of Systems Const All systems reviewed & are unremarkable except as noted in HPI and below ENT Reports no additional complaints Card Reports no additional complaints Resp Reports no additional complaints Reports no additional complaints Physical exam (Primary Care) Vital Signs: Last Vital Signs Pulse 84 12/01/23 14:09 BP 134/74 12/01/23 14:09 Pulse Ox 99 12/01/23 14:09 Oxygen Delivery Method Room Air 12/01/23 14:09 BMI result Body Mass Index 26.8 Tobacco/Smoking Status: Tobacco use Status Tobacco use date assessed 12/01/23 12/01/23 14:20 Patient Tobacco Use Status Never used Tobacco 12/01/23 14:20 e-Cigarette/Vaping Use Never Used 12/01/23 14:20 Thrive Assessment: Date of Thrive Assessment Date Thrive assessed 06/16/23 12/01/23 14:20 Currently or been in a relationship where the following occur: No concerns reported Const General: no acute distress HENMT Mouth: Normal oral and palatal mucosa present Neck Neck: Yes supple Resp Effort & Inspection: normal respiratory effort Auscultation: clear to auscultation bilaterally Cardio Rhythm: regular rhythm Heart sounds: S1 normal heart sound present and S2 normal heart sound present GI Inspection: Yes normal to inspection Palpation (GI): Soft to palpation Percussion: Yes normal to percussion Auscultation: normal bowel sounds Back/Spine/Pelvis Back: No back tenderness Thoracic/Lumbar Spine: thoracic and lumbar spine normal to inspection Assessment and Plan Assessment & Plan (1) Hip pain, left: Code(s): M25.552 - Pain in left hip Plan: check x-rays of both hips continue physical therapy and Celebrex (2) Hyperlipidemia: Code(s): E78.5 - Hyperlipidemia, unspecified Plan: Continue statin (3) HTN (hypertension): Code(s): I10 - Essential (primary) hypertension Plan: Continue amlodipine (4) Vitamin D deficiency: Code(s): E55.9 - Vitamin D deficiency, unspecified Plan: Add 1000 units of vitamin D3 (5) Acute kidney failure: Comment: Due to dehydration and hypotension, Hospitalization at 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 and stop sertraline. Follow-up in 1 month Orders: Orders Comprehensive Met. Panel Today E55.9 - Vitamin D deficiency, unspecified, E78.5 - Hyperlipidemia, unspecified, I10 - Essential (primary) hypertension, M25.552 - Pain in left hip XR hip BI w PEL1V Today M25.552 - Pain in left hip Complete Blood Count Auto Diff Today E55.9 - Vitamin D deficiency, unspecified, E78.5 - Hyperlipidemia, unspecified, I10 - Essential (primary) hypertension, M25.552 - Pain in left hip Vitamin D 25-OH Total Today E55.9 - Vitamin D deficiency, unspecified, E78.5 - Hyperlipidemia, unspecified, I10 - Essential (primary) hypertension, M25.552 - Pain in left hip Medications: New cholecalciferol (vitamin D3) 50 mcg PO DAILY 90 tabs 1RF mirtazapine 15 mg PO .qhs 90 tabs 0RF Coding Level of Care Code Est Pt Level 4 (03979) Diagnoses Hip pain, left M25.552 Hyperlipidemia E78.5 HTN (hypertension) I10 Vitamin D deficiency E55.9 Acute kidney failure N17.9 Poor balance R26.89 Grief reaction with prolonged bereavement F43.81
[2023-12-01 14:09] VITALS: BP 134/74; PULSE 84; O2SAT 99; BMI 26.8
== END 2023-12-01 15:03 | disposition home or self-care (01) ==
PROVIDERS: PCP Internal Medicine; Visit Provider Internal Medicine
DX: M25.552 Pain in left hip (principal); N17.9 Acute kidney failure, unspecified; E78.5 Hyperlipidemia, unspecified; I10 Essential (primary) hypertension; E55.9 Vitamin D deficiency, unspecified; R26.89 Other abnormalities of gait and mobility; F43.81 Prolonged grief disorder

== ENCOUNTER → 2023-12-01 14:06 | Outpatient (BNVA) | payer MEDICARE, BC, SELFPAY | PROVIDERS: PCP Internal Medicine; Visit Provider Internal Medicine | DX: M25.552 Pain in left hip (principal); E78.5 Hyperlipidemia, unspecified; I10 Essential (primary) hypertension; E55.9 Vitamin D deficiency, unspecified; N17.9 Acute kidney failure, unspecified; R26.89 Other abnormalities of gait and mobility; F43.81 Prolonged grief disorder | CPT/HCPCS: 73521; 99212 ==

== ENCOUNTER 2023-12-01 15:07 | Outpatient (REF) | payer MEDICARE, BC, SELFPAY ==
--- NOTE | ~2023-12-01 | XR_ITS ---
EXAMINATION: XR BILATERAL HIPS WITH AP PELVIS CLINICAL INFORMATION: M25.552 - Pain in left hip COMPARISON: None available. TECHNIQUE: AP view of the pelvis and single views of each hip were obtained. FINDINGS: Submitted for interpretation on February 08, 2024. Bony pelvis is intact. No acute cortical disruption or gross malalignment in either coxofemoral joint. Sclerosis and the sacroiliac joints and symphysis pubis. Asymmetric joint space narrowing in both coxofemoral joints. Multilevel lower lumbar spondylosis. XR/XR hip BI w PEL1V IMPRESSION: No acute fracture or dislocation. Osteoarthrosis, both coxofemoral joints. Electronically signed by: Timo Guadarrama MD 02/08/2024 11:25 AM [facility]
== END 2023-12-01 15:08 | disposition home or self-care (01) ==
LOC: HO.HMGCLDS 15:07
PROVIDERS: PCP Internal Medicine; Visit Provider Internal Medicine
DX: M25.552 Pain in left hip (principal)
CPT/HCPCS: 73521

== ENCOUNTER → 2023-12-01 15:10 | Outpatient (BNV) | payer MEDICARE, BC, SELFPAY | PROVIDERS: PCP Internal Medicine; Visit Provider Radiology Diagnostic Radiology | DX: M25.552 Pain in left hip (principal) | CPT/HCPCS: 73521 ==

== ENCOUNTER 2023-12-05 13:33 | Outpatient (REF) | payer MEDICARE, BC, SELFPAY ==
[2023-12-05 15:06] LABS: MANUAL DIFF FLAG NO
[2023-12-05 15:10] LABS: Basophils Percent Auto 0.4 % (0-2); Eosinophils Percent Auto 0.3 % (0-4); Hematocrit 37.5 % (37.0-47.0); Hemoglobin 12.7 g/dl (12.0-16.0); Imm Gran Abs Auto 0.05 X10*3/uL (0.00-0.03); Imm Gran Pct Auto 0.5 % (0.0-0.4); Lymphocytes Absolute Auto 0.8 X10*3/uL (1.2-4.9); Lymphocytes Percent Auto 8.5 % (20-40); Mean Corpuscular HGB Conc 33.9 g/dl (31.0-35.0); Mean Corpuscular Hemoglobin 35.4 pg (27.0-33.0); Mean Corpuscular Volume 104.5 fL (80.0-98.0); Monocytes Absolute Auto 0.7 X10*3/uL (0.1-1.2); Monocytes Percent Auto 6.9 % (2-11); Neutrophils Absolute Auto 8.2 x10*3/uL (2.0-8.3); Neutrophils Percent Auto 83.4 % (45-73); Platelet Count 335 X10*3/uL (160-400); Red Blood Count 3.59 X10*6/uL (4.20-5.50); Red Cell Distribution Width 11.9 % (11.0-16.0); White Blood Count 9.8 X10*3/uL (4.8-10.8)
[2023-12-05 15:31] LABS: Alanine Aminotransferase 17 U/L (0-31); Albumin Level 3.9 g/dL (3.5-5.0); Alkaline Phosphatase 104 U/L (39-117); Anion Gap 16 (12-20); Aspartate Amino Transferase 22 U/L (5-31); Bilirubin Total 1.1 mg/dL (0.0-1.0); Blood Urea Nitrogen 9 mg/dL (9-16); Calcium 9.9 mg/dL (8.4-10.2); Carbon Dioxide 22 mmol/L (22-29); Chloride 100 mmol/L (96-108); Estimated Glomerular Filt Rate > 60; Glucose Random 113 mg/dL (60-115); Potassium 4.3 mmol/L (3.3-5.1); Sodium 134 mmol/L (135-145)
[2023-12-05 15:45] LABS: Vitamin D 25-OH Total 30.4 ng/mL (>30)
== END 2023-12-05 13:34 | disposition home or self-care (01) ==
LOC: HO.HMGCLDS 13:33
PROVIDERS: PCP Internal Medicine; Visit Provider Internal Medicine
DX: E78.5 Hyperlipidemia, unspecified (principal); I10 Essential (primary) hypertension; M25.552 Pain in left hip; E55.9 Vitamin D deficiency, unspecified
CPT/HCPCS: 36415; 80053; 82306; 85025

== ENCOUNTER 2024-01-26 10:00 | Outpatient (AMB) | payer MEDICARE, BC, SELFPAY ==
[2024-01-26 10:07] VITALS: BP 122/74; PULSE 82; O2SAT 97; BMI 26.6
--- NOTE | 2024-01-26 10:07 | AM.OFFVISMDC ---
Intake Vital Signs 01/26/24 10:07 Height 5 ft Weight 136 lb BMI 26.6 BP 122/74 Blood Pressure Location Lt brachial Position Sitting Pulse 82 Pulse Source Pulse Oximeter Pulse Oximetry (%) 97 Oxygen Delivery Method Room Air Intake Visit Reasons: [facility] G0439 Allergies amoxicillin Allergy (Unknown, Verified 01/26/24 10:17) Rash clavulanic acid [Augmentin] Allergy (Unknown, Verified 01/26/24 10:17) Rash Medication List - Last Reconciled 01/26/24 by Jud Nino MD amlodipine 2.5 mg PO DAILY atorvastatin 20 mg PO BEDTIME calcipotriene 0.005% 1 appl topical BEDTIME celecoxib (Celebrex) 200 mg PO BEDTIME cholecalciferol (vitamin D3) 50 mcg PO DAILY clobetasol 0.05% 1 appl topical DAILY latanoprost 0.005% 1 drp ophthalmic (eye) BEDTIME lidocaine 5% 1 patch topical DAILY magnesium oxide 400 mg PO BID mirtazapine 15 mg PO .qhs frbeyogh-iucq-SM-calcium-mins 9 mg iron-400 mcg (Therapeutic-M) 1 tab PO DAILY pantoprazole 40 mg PO DAILY HPI [facility] G0439 HPI Details Initiated the conversation about Advanced Directives. Advanced Directives help? patients prepare for current and future decisions about their medical treatment? and place of care. Discussed with patient that it is a process where a patients? current condition and prognosis are reviewed, their wishes for information? regarding their illness are elicited, and likely medical dilemmas are presented? and options discussed. The form can be amended as needed, reviewed yearly and? make changes as needed IPPE/AWV ? year old presents? for her ? Annual? Wellness Visit, initial visit.? Medical / Social History Reviewed? Past Medical History ?Yes? . ? [place]? of Care / Care Team list updated ?Yes . ? Surgical/Hospitalization? History ?Yes . ? Current Medications? (including OTC and supplements) ?Yes . ? Family History ?Yes? . ? Tobacco? Control form ?Yes . ? AUDIT-C (Alcohol use) form? ?Yes . ? Illicit drug use in Social? History ?Yes . ? Current diagnosis of? depression? ?No ? Appropriate PHQ2/PHQ9? completed ?Yes . ? Data entered by ?Medical? Roving Changer and reviewed by provider ? Fall Risk ? Fall? History? Have you had any falls with? injury in the past year? ?No . ? Have you had two or more? falls in the past year? ?No . ? Fall Risk Assessment: ?No? falls in the past year . ? HRA filled out by? the patient, reviewed by Provider and scanned. ? IPPE/AWV ? Balance? Romberg? ?Yes . ? Tandem? walk ?Yes . ? Walk and? Turn ?Yes . ? Rise from? sit to stand ?Yes . ?Vision? Corrective? lens ?Yes ? Vision? screen ? Up-to-date, has an appointment [] for vision? screening and glaucoma screening ?Hearing? Whisper? test ?pass .? Initiated the conversation about Advanced Directives. Advanced Directives help? patients prepare for current and future decisions about their medical treatment? and place of care. Discussed with patient that it is a process where a patients? current condition and prognosis are reviewed, their wishes for information? regarding their illness are elicited, and likely medical dilemmas are presented? and options discussed. The form can be amended as needed, reviewed yearly and? make changes as needed Written? Plan?Completed. See Patient? Documents. [facility] Medical History (Updated 01/26/24 @ 15:45 by Jud Nino MD) Acute kidney failure Chronic bilateral low back pain Annual physical exam Aortic valve sclerosis IBS (irritable bowel syndrome) Osteopenia Hyperlipidemia HTN (hypertension) Surgical History Hx of section Hx of appendectomy Family History Father Heart problem Mother Hypertension Family history of thyroid problem Brother Heart problem Social History Housing: House Alcohol intake: never Patient Tobacco Use Status: Never used Tobacco e-Cigarette/Vaping Use: Never Used service: No Current occupational status: retired Cognitive needs: No Hearing needs: No Vision needs: Yes Questionnaire Medicare Wellness Checkup What is your age?: 78 or older What gender do you identify with?: female During the past 4 weeks, how much have you been bothered by emotional problems such as feeling anxious, depressed, irritable, sad or downhearted, and blue?: slightly During the past 4 weeks, has your physical & emotional health limited your social activities with family, friends, neighbors, or groups?: not at all During the past 4 weeks, how much bodily pain have you generally had?: mild pain During the past 4 weeks, was someone available to help you if you needed & wanted help?: yes, as much as I wanted During the past 4 weeks, what was the hardest physical activity you could do for at least 2 minutes?: heavy Can you get to places out of walking distance without help? (For eg., can you travel alone on buses, taxis or drive your car?): Yes Can you go shopping for groceries or clothes without someone's help?: No Can you prepare your own meals?: Yes Can you do your housework without help?: Yes Because of any health problems, do you need the help of another person with your personal care needs such as eating, bathing, dressing or getting around the house?: No Can you handle your own money without help?: Yes During the past 4 weeks, how would you rate your health in general?: good During the past 4 weeks how have things been going for you?: pretty well Are you having difficulties driving your car?: not applicable, I don't use a car Do you always fasten your seat belt when you are in a car?: yes, usually During past 4 weeks, have you been bothered by the following: never: Falling or dizzy when standing up, Sexual problems?, Trouble eating well?, Teeth or denture problems? and Problems using the telephone? and sometimes: Tiredness or fatigue? Have you fallen 2 or more times in the past year?: No Are you afraid of falling?: Yes Are you a smoker?: no During the past 4 weeks, how many drinks of wine, beer, or other alcoholic beverages did you have?: no alcohol at all Do you exercise for about 20 minutes 3 or more times a week?: yes, some of the time Have you been given information to help with the following?: no: Hazards in your house that might hurt you? and no: Keeping track of your medications? How often do you have trouble taking medicines the way you have been told to take them?: I always take medicine as prescribed How confident are you that you can control & manage most of your health problems?: somewhat confident What is your race?: White Mini Mental State Exam (MMSE) Orientation What is the (year) (season) (date) (day) (month)?: year, season, date, day and month Where are we (state) (county) (town or city) (hospital) (floor)?: state, county, town or city, hospital/clinic and floor Registration Name of 3 unrelated objects clearly and slowly, then ask patient to repeat all 3 of them. (1st repeat determines score. Make sure they can repeat all three): object 1, object 2 and object 3 Attention & Calculation (CHOOSE ONE) Spell WORLD backwards (DLROW): 5 letters Recall Ask patient to repeat the 3 items from question #3.: object 1, object 2 and object 3 Language Show patient a wristwatch & ask what it is. Repeat for pencil.: watch and pencil Ask the patient to repeat the phrase 'No ifs, ands, or buts' after you.: correct Ask the patient to 'take a piece of paper with their right hand' 'fold paper in half' 'place paper on floor': take paper in right hand, fold paper in half and place paper on floor Print the sentence 'CLOSE YOUR EYES' on a piece. If patient actually closes eyes then score.: followed written direction Give patient a blank piece of paper & ask to write a sentence. Score if it contains a noun & verb.: sentence contains subject and verb Score Score: 29 PHQ-9 Over the last 2 weeks, how often have you been bothered by any of the following problems? 1. Little interest or pleasure in doing things: not at all 2. Feeling down, depressed, or hopeless: several days 3. Trouble falling or staying asleep, or sleeping too much: several days 4. Feeling tired or having little energy: several days 5. Poor appetite or overeating: several days 6. Feeling bad about yourself - or that you are a failure or have let yourself or your family down: several days 7. Trouble concentrating on things, such as reading the newspaper or watching television: not at all 8. Moving or speaking so slowly that other people could have noticed. Or the opposite - being so fidgety or restless that you have been moving around a lot more than usual: not at all 9. Thoughts that you would be better off or of hurting yourself in some way: not at all Total score: 5 Depression Screening Interpretation: Negative Depression Screening Done: Yes 91541 - PHQ-9 Billing: Yes Source: Developed by Drs. Davey Quevedo, Gi Lamas, Wilson Ramirez and colleagues, with an educational chandrakant from [employer]. Review of Systems Const All systems reviewed & are unremarkable except as noted in HPI and below Reports no additional complaints Eyes Reports no additional complaints ENT Reports no additional complaints Card Reports no additional complaints Resp Reports no additional complaints GI Reports no additional complaints Reports no additional complaints Musc Reports no additional complaints Physical Exam Vital Signs: Last Vital Signs Pulse 82 01/26/24 10:07 BP 122/74 01/26/24 10:07 Pulse Ox 97 01/26/24 10:07 Oxygen Delivery Method Room Air 01/26/24 10:07 BMI result Body Mass Index 26.6 Const General: no acute distress HEENT Head: Yes normal to inspection Ears: hearing grossly normal bilaterally Neck Neck: Yes no lymphadenopathy and Yes supple Resp Effort & Inspection: normal respiratory effort Auscultation: clear to auscultation bilaterally Cardio Rhythm: regular rhythm Heart sounds: S1 normal heart sound present and S2 normal heart sound present GI Inspection: Yes normal to inspection Palpation (GI): Soft to palpation Percussion: Yes normal to percussion Auscultation: normal bowel sounds Extrem General: Yes no clubbing, cyanosis or edema Assessment & Plan Assessment & Plan (1) Annual physical exam: Code(s): Z00.00 - Encounter for general adult medical examination without abnormal findings Plan: Well-balanced diet regular physical activity discussed with the patient (2) Hyperlipidemia: Code(s): E78.5 - Hyperlipidemia, unspecified Plan: Continue statin (3) HTN (hypertension): Code(s): I10 - Essential (primary) hypertension Plan: Continue current medications (4) Chronic anxiety: Code(s): F41.9 - Anxiety disorder, unspecified Plan: Continue mirtazapine Quality Reporting (2019) Depression/Bipolar (159/160/161/177) PHQ-9: Total score: 5 Coding Level of Care Code Medicare Subsequent (G0439) Diagnoses Annual physical exam Z00.00 Hyperlipidemia E78.5 HTN (hypertension) I10 Chronic anxiety F41.9 CPT Codes Advance Care Planning - Advance Care Planning discussion: On file, no changes ([id number]) Advance Care Planning - Time spent: 1-15 minutes, on File ([id number]) Additional Codes PHQ-9 - 72208 - PHQ-9 Billing: Yes ([id number]) Advance Care Planning Advance Care Planning discussion: On file, no changes Forms completed: Health Care Proxy Time spent: 1-15 minutes, on File Did not discuss due to Cultural/Spiritual beliefs: Yes
== END 2024-01-26 11:06 | disposition home or self-care (01) ==
PROVIDERS: PCP Internal Medicine; Visit Provider Internal Medicine
DX: Z00.00 Encounter for general adult medical examination without abnormal findings (principal); E78.5 Hyperlipidemia, unspecified; I10 Essential (primary) hypertension; F41.9 Anxiety disorder, unspecified

== ENCOUNTER → 2024-01-26 10:00 | Outpatient (BNVA) | payer MEDICARE, BC, SELFPAY | PROVIDERS: PCP Internal Medicine; Visit Provider Internal Medicine | DX: Z00.00 Encounter for general adult medical examination without abnormal findings (principal); E78.5 Hyperlipidemia, unspecified; I10 Essential (primary) hypertension; F41.9 Anxiety disorder, unspecified | CPT/HCPCS: 96127 ==

== ENCOUNTER 2024-01-30 13:02 | Outpatient (REF) | payer MEDICARE, BC, SELFPAY ==
[2024-01-30 16:00] LABS: MANUAL DIFF FLAG NO
[2024-01-30 16:02] LABS: Basophils Absolute Auto 0.1 X10*3/uL (0.0-0.2); Basophils Percent Auto 0.5 % (0-2); Eosinophils Absolute Auto 0.1 X10*3/uL (0.0-0.4); Eosinophils Percent Auto 1.4 % (0-4); Hematocrit 39.6 % (37.0-47.0); Hemoglobin 13.4 g/dl (12.0-16.0); Imm Gran Abs Auto 0.02 X10*3/uL (0.00-0.03); Imm Gran Pct Auto 0.2 % (0.0-0.4); Lymphocytes Absolute Auto 2.1 X10*3/uL (1.2-4.9); Lymphocytes Percent Auto 21.1 % (20-40); Mean Corpuscular HGB Conc 33.8 g/dl (31.0-35.0); Mean Corpuscular Hemoglobin 34.4 pg (27.0-33.0); Mean Corpuscular Volume 101.8 fL (80.0-98.0); Mean Platelet Volume 9.8 fL (9.4-12.3); Monocytes Absolute Auto 0.7 X10*3/uL (0.1-1.2); Monocytes Percent Auto 6.9 % (2-11); Neutrophils Percent Auto 69.9 % (45-73); Platelet Count 327 X10*3/uL (160-400); Red Blood Count 3.89 X10*6/uL (4.20-5.50); Red Cell Distribution Width 11.9 % (11.0-16.0)
[2024-01-30 16:28] LABS: Alanine Aminotransferase 12 U/L (0-31); Alkaline Phosphatase 106 U/L (39-117); Anion Gap 14 (12-20); Aspartate Amino Transferase 22 U/L (5-31); Bilirubin Total 0.9 mg/dL (0.0-1.0); Blood Urea Nitrogen 11 mg/dL (9-16); Calcium 9.5 mg/dL (8.4-10.2); Carbon Dioxide 26 mmol/L (22-29); Chloride 100 mmol/L (96-108); Cholesterol 150 mg/dL (<200); Estimated Glomerular Filt Rate > 60; Glucose Fasting 112 mg/dL (60-99); HDL Cholesterol 38 mg/dL (>40); LDL Cholesterol Calculated 62 mg/dL (<100); Potassium 4.1 mmol/L (3.3-5.1); Sodium 136 mmol/L (135-145); Total Protein 7.8 g/dL (6.5-8.0); Triglycerides 250 mg/dL (<150)
[2024-01-30 16:42] LABS: TSH reflex Free T4 2.19 uIU/mL (0.32-4.0); Vitamin D 25-OH Total 59.5 ng/mL (>30)
== END 2024-01-30 13:03 | disposition home or self-care (01) ==
LOC: HO.HMGCLDS 13:02
PROVIDERS: PCP Internal Medicine; Visit Provider Internal Medicine
DX: E78.5 Hyperlipidemia, unspecified (principal); E55.9 Vitamin D deficiency, unspecified; E87.1 Hypo-osmolality and hyponatremia; I10 Essential (primary) hypertension
CPT/HCPCS: 36415; 80053; 80061; 82306; 84443; 85025

== ENCOUNTER 2024-08-23 11:29 | Outpatient (REF) | payer MEDICARE, BC, SELFPAY ==
[2024-08-23 16:18] LABS: MANUAL DIFF FLAG NO
[2024-08-23 16:21] LABS: Basophils Percent Auto 0.4 % (0-2); Eosinophils Absolute Auto 0.1 X10*3/uL (0.0-0.4); Eosinophils Percent Auto 0.7 % (0-4); Hematocrit 43.4 % (37.0-47.0); Imm Gran Abs Auto 0.02 X10*3/uL (0.00-0.03); Imm Gran Pct Auto 0.2 % (0.0-0.4); Lymphocytes Absolute Auto 1.7 X10*3/uL (1.2-4.9); Mean Corpuscular HGB Conc 34.6 g/dl (31.0-35.0); Mean Corpuscular Hemoglobin 35.5 pg (27.0-33.0); Mean Corpuscular Volume 102.6 fL (80.0-98.0); Mean Platelet Volume 10.3 fL (9.4-12.3); Monocytes Absolute Auto 0.5 X10*3/uL (0.1-1.2); Monocytes Percent Auto 6.1 % (2-11); Neutrophils Absolute Auto 6.2 x10*3/uL (2.0-8.3); Neutrophils Percent Auto 72.6 % (45-73); Platelet Count 259 X10*3/uL (160-400); Red Blood Count 4.23 X10*6/uL (4.20-5.50); Red Cell Distribution Width 12.5 % (11.0-16.0); White Blood Count 8.6 X10*3/uL (4.8-10.8)
[2024-08-23 16:47] LABS: Estimated Average Glucose 100 mg/dL; Hemoglobin A1C 125.6575 umol/L; Hemoglobin A1c % 5.1 % (<6.0)
[2024-08-23 17:17] LABS: Alanine Aminotransferase 14 U/L (0-31); Albumin Level 4.3 g/dL (3.5-5.0); Alkaline Phosphatase 98 U/L (39-117); Anion Gap 16 (12-20); Aspartate Amino Transferase 34 U/L (5-31); Bilirubin Total 1.3 mg/dL (0.0-1.0); Blood Urea Nitrogen 9 mg/dL (9-16); Calcium 9.8 mg/dL (8.4-10.2); Carbon Dioxide 25 mmol/L (22-29); Chloride 103 mmol/L (96-108); Estimated Glomerular Filt Rate > 60; Glucose Fasting 100 mg/dL (60-99); Potassium 5.2 mmol/L (3.3-5.1); Sodium 139 mmol/L (135-145); Total Protein 7.7 g/dL (6.5-8.0)
[2024-08-23 17:39] LABS: Vitamin D 25-OH Total 100.7 ng/mL (>30)
[2024-08-23 18:06] LABS: Folate 17.4 ng/mL (> or = 4.0); Vitamin B12 531 pg/mL (200-900)
[2024-08-28 14:09] LABS: Vitamin B1 25 nmol/L (8-30)
== END 2024-08-23 11:30 | disposition home or self-care (01) ==
LOC: HO.HMGCLDS 11:29
PROVIDERS: PCP Internal Medicine; Visit Provider Internal Medicine
DX: I10 Essential (primary) hypertension (principal); E53.8 Deficiency of other specified B group vitamins; R73.9 Hyperglycemia, unspecified; E78.5 Hyperlipidemia, unspecified; F41.9 Anxiety disorder, unspecified; F32.A Depression, unspecified; E87.1 Hypo-osmolality and hyponatremia; E55.9 Vitamin D deficiency, unspecified
CPT/HCPCS: 36415; 80053; 82306; 82607; 82746; 83036; 84425; 85025; 96127; 99212

== ENCOUNTER 2024-08-23 11:29 | Outpatient (AMB) | payer MEDICARE, BC, SELFPAY ==
--- NOTE | 2024-08-23 11:56 | A.OFFPC_ITS ---
Vital Signs 08/23/24 11:57 Height 5 ft Weight 141 lb BMI 27.5 BP 120/74 Blood Pressure Location Lt brachial Position Sitting Respiration 18 Pulse 77 Pulse Source Pulse Oximeter Temp 98.2 F Temp Source Oral Pulse Oximetry (%) 96 Oxygen Delivery Method Room Air Intake Visit Reasons: 6 months follow up Intake Note: Pt is here today for 6 months follow up visit. Allergies amoxicillin Allergy (Unknown, Verified 08/23/24 11:59) Rash clavulanic acid [Augmentin] Allergy (Unknown, Verified 08/23/24 11:59) Rash Medication List - Last Reconciled 08/23/24 by Jud Nino MD amlodipine 2.5 mg PO DAILY atorvastatin 20 mg PO BEDTIME calcipotriene 0.005% 1 appl topical BEDTIME celecoxib (Celebrex) 200 mg PO BEDTIME cholecalciferol (vitamin D3) 50 mcg PO DAILY clobetasol 0.05% 1 appl topical DAILY latanoprost 0.005% 1 drp ophthalmic (eye) BEDTIME lidocaine 5% 1 patch topical DAILY magnesium oxide 400 mg PO BID mirtazapine 15 mg PO .qhs fuuequda-shiu-XO-calcium-mins 9 mg iron-400 mcg (Therapeutic-M) 1 tab PO DAILY pantoprazole 40 mg PO DAILY Tobacco use date assessed: 08/23/24 Fall risk assessment: No Falls in past year Last assessed Fall Risk: 08/23/24 Dental Screening Dental Screen Date: 08/23/24 Did you have a dental visit in the last 12 months?: Yes Did you have a dental problem in the last 6 months where you did not have access to dental care?: No Was dental information given to patient?: Patient has dentist HPI 6 months follow up HPI Details Pt presents for the follow-up on hypertension hyperlipidemia chronic depression. She has been forgetting to take mirtazapine at least 3 nights a week. She denies insomnia. The patient has been stable and unchanged. Patient denies change in appetite or suicide ideation PFSH Medical History (Updated 08/23/24 @ 12:49 by Jud Nino MD) Anxiety and depression Chronic bilateral low back pain Annual physical exam Aortic valve sclerosis IBS (irritable bowel syndrome) Osteopenia Hyperlipidemia HTN (hypertension) Surgical History Hx of section Hx of appendectomy Family History Father Heart problem Mother Hypertension Family history of thyroid problem Brother Heart problem Social History Housing: House Alcohol intake: never Patient Tobacco Use Status: Never used Tobacco e-Cigarette/Vaping Use: Never Used service: No Current occupational status: retired Cognitive needs: No Hearing needs: No Vision needs: Yes Questionnaire PHQ-9 Over the last 2 weeks, how often have you been bothered by any of the following problems? 1. Little interest or pleasure in doing things: not at all 2. Feeling down, depressed, or hopeless: not at all 3. Trouble falling or staying asleep, or sleeping too much: not at all 4. Feeling tired or having little energy: not at all 5. Poor appetite or overeating: not at all 6. Feeling bad about yourself - or that you are a failure or have let yourself or your family down: not at all 7. Trouble concentrating on things, such as reading the newspaper or watching te levision: not at all 8. Moving or speaking so slowly that other people could have noticed. Or the opposite - being so fidgety or restless that you have been moving around a lot more than usual: not at all 9. Thoughts that you would be better off or of hurting yourself in some way: not at all Total score: 0 Depression Screening Interpretation: Negative Depression Screening Done: Yes 45917 - PHQ-9 Billing: Yes Source: Developed by Drs. Davey Quevedo, Gi Lamas, Wilson Ramirez and colleagues, with an educational chandrakant from [employer]. Thrive Questionnaire Date Thrive assessed: 08/23/24 I am a: Patient What is your living situation today?: I have a steady place to live Within the past 12 months, did the food you bought not last and you didn't have the money to get more?: Never true Within the past 12 months, did you worry whether your food would run out before you got money to buy more?: Never true Do you have trouble paying for medicines?: No Do you have trouble getting transportation to medical appointments?: No Do you have trouble paying your heating and electricity bill?: No Do you have trouble taking care of your child, family member or friend?: No Do you have trouble with day-to-day activities such as bathing, preparing meals, shopping, managing finances, etc.?: Yes Are you interested in more education?: Yes Please select the resources that you would like help with: Care for elder or disabled Currently or been in a relationship where the following occur: No concerns reported THRIVE Score: 0 AUDIT C Alcohol Use Questionnaire (AUDIT-C) 1. How often do you have a drink containing alcohol?: Never 3. How often do you have six or more drinks on one occasion?: Never Total Score: 0 ASAF-7 AMB Questionnaire ASAF-7 Date ASAF - 7 assessed: 08/23/24 Feeling nervous, anxious, or on edge: 0 = Not at all Not being able to stop or control worryin = Not at all Worrying too much about different things: 0 = Not at all Trouble relaxin = Not at all Being so restless that it is hard to sit still: 0 = Not at all Becoming easily annoyed or irritable: 0 = Not at all Feeling afraid as if something awful might happen: 0 = Not at all Total ASAF-7 score (0-4 normal; 5-9 mild; 10-14 moderate; 15-21 severe): 0 Source: Developed by Drs. Davey Quevedo, Gi Lamas, Wilson Ramirez and colleagues, with an educational chandrakant from [employer]. ASAF-7 Assessment Billing ASAF-7 Assessment Tool: ASAF-7 Assessment 58474 Review of Systems Const All systems reviewed & are unremarkable except as noted in HPI and below Eyes Reports no additional complaints Card Reports no additional complaints GI Reports no additional complaints Reports no additional complaints Physical exam (Primary Care) Vital Signs: Last Vital Signs Temp 98.2 F 08/23/24 11:57 Pulse 77 08/23/24 11:57 Resp 18 08/23/24 11:57 BP 120/74 08/23/24 11:57 Pulse Ox 96 08/23/24 11:57 Oxygen Delivery Method Room Air 08/23/24 11:57 BMI result Body Mass Index 27.5 Tobacco/Smoking Status: Tobacco use Status Tobacco use date assessed 08/23/24 08/23/24 12:03 Patient Tobacco Use Status Never used Tobacco 08/23/24 12:03 e-Cigarette/Vaping Use Never Used 08/23/24 12:03 PHQ-9: PHQ-9 Score PHQ-9: Total score 0 08/23/24 12:03 Depression Screening Interpretation: Negative Thrive Assessment: Date of Thrive Assessment Date Thrive assessed 08/23/24 08/23/24 12:03 Currently or been in a relationship where the following occur: No concerns reported Const General: no acute distress HENMT Head: Yes normal to inspection Face and sinus: Yes normal facial exam Neck Neck: Yes no lymphadenopathy and Yes supple Resp Effort & Inspection: normal respiratory effort Auscultation: clear to auscultation bilaterally Cardio Rhythm: regular rhythm Heart sounds: S1 normal heart sound present and S2 normal heart sound present GI Inspection: Yes normal to inspection Coding Level of Care Code Est Pt Level 4 (91878) Diagnoses Vitamin B12 deficiency E53.8 Hyperglycemia R73.9 Hyperlipidemia E78.5 HTN (hypertension) I10 Anxiety and depression F41.9; F32.A Additional Codes ASAF-7 Assessment Billing - ASAF-7 Assessment Tool: ASAF-7 Assessment 40268 ([id number]) PHQ-9 - 66195 - PHQ-9 Billing: Yes ([id number]) Assessment & Plan Assessment & Plan (1) Vitamin B12 deficiency: Code(s): E53.8 - Deficiency of other specified B group vitamins Category: Medical Plan: Continue supplement check level (2) Hyperglycemia: Code(s): R73.9 - Hyperglycemia, unspecified Category: Medical Plan: ADA diet increase physical activity discussed with the patient check A1c today (3) Hyperlipidemia: Code(s): E78.5 - Hyperlipidemia, unspecified Category: Medical Plan: Continue statin (4) HTN (hypertension): Code(s): I10 - Essential (primary) hypertension Category: Medical Plan: Continue current medications (5) Anxiety and depression: Code(s): F41.9 - Anxiety disorder, unspecified; F32.A - Depression, unspecified Category: Medical Plan: Change mirtazapine to sertraline 50 mg q.a.m. Orders: Orders Vitamin B12 and Folate Today E53.8 - Deficiency of other specified B group vitamins Vitamin B1 Today E53.8 - Deficiency of other specified B group vitamins Medications: New sertraline (Zoloft) 50 mg PO DAILY 90 tabs 1RF Changed From atorvastatin 20 mg PO BEDTIME 90 tabs 2RF To atorvastatin 20 mg PO .qd 90 tabs 2RF Discontinued mirtazapine Discontinued Reason: Doctor's Order 15 mg PO .qhs 90 tabs 3RF
[2024-08-23 11:57] VITALS: BP 120/74; PULSE 77; RESP 18; TEMP 36.8; O2SAT 96; BMI 27.5
--- OUTSIDE RECORDS SUMMARY | 2024-08-23 13:29 | XMS_ITS | Clinical Summary ---
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 Name Role Phone Unavailable Primary Care Provider Unavailabl e Social History Tobacco Use Types Packs/Day Years Used Date Smoking Tobacco: Never Assessed Comments Unknown Sex and Gender Information Value Date Recorded Sex Assigned at Not on file Legal Sex Female 3:26 PM EST Gender Identity Not on file Sexual Orientation Not on file Plan of Treatment Health Maintenance Due Date Last Done Comments DTaP,Tdap,and Td Vaccines (1 - Tdap) 1959 Pneumococcal Vaccine: 50+ Ye ars (1 of 1 - PCV) 1988 Zoster Vaccines (1 of 2) 1988 RSV Immunization Adult Patie nts (1 - 1-dose 75+ series) 2013 Depression Screening 02/05/2022 Falls Risk Assessment 02/05/2022 Osteoporosis Screening (Bone Density Screening) 02/05/2022 Social Influencers of Health Screening 02/05/2022 COVID-19 Vaccine (2023-2 5 season) 2023 Influenza Vaccine (Season Ended) 2024 HIB Vaccines Aged Out No longer eligi ble based on patient's age to complete this topic HPV Vaccines Aged Out No longer eligi ble based on patient's age to complete this topic Hepatitis A Vaccines Aged Out No long er eligible based on patient's age to complete this topic Hepatitis B Vaccines Aged Out No long er eligible based on patient's age to complete this topic IPV Vaccines Aged Out No longer eligi ble based on patient's age to complete this topic MMR Vaccines Aged Out No longer eligi ble based on patient's age to complete this topic Meningococcal ACWY Vaccine Aged Out N o longer eligible based on patient's age to complete this topic Meningococcal B Vaccine Aged Out No l onger eligible based on patient's age to complete this topic RSV Immunization Patients Un mitch 20 months Aged Out No longer eligible b ased on patient's age to complete this topic Varicella Vaccines Aged Out No longer eligible based on patient's age to complete this topic Advance Directives Documents on File Type Date Recorded 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
== END 2024-08-23 12:25 | disposition home or self-care (01) ==
LOC: HO.HMCC 11:46
PROVIDERS: PCP Internal Medicine; Visit Provider Internal Medicine
DX: E53.8 Deficiency of other specified B group vitamins (principal); R73.9 Hyperglycemia, unspecified; E78.5 Hyperlipidemia, unspecified; I10 Essential (primary) hypertension; F41.9 Anxiety disorder, unspecified; F32.A Depression, unspecified

== ENCOUNTER 2025-02-14 13:45 | Outpatient (AMB) | payer MEDICARE, BC, SELFPAY ==
--- NOTE | 2025-02-14 13:53 | A.OFFPC_ITS ---
Vital Signs 02/14/25 14:25 Height 5 ft Weight 139 lb BMI 27.1 BP 120/80 Blood Pressure Location Lt brachial Position Sitting Pulse 81 Pulse Source Pulse Oximeter Pulse Oximetry (%) 96 Intake Visit Reasons: Discharge follow up Intake Note: Pt is here today for HDF. Allergies amoxicillin Allergy (Unknown, Verified 02/14/25 14:26) Rash clavulanic acid (Augmentin) Allergy (Unknown, Verified 02/14/25 14:26) Rash Tobacco use date assessed: 02/14/25 Fall risk assessment: 1 Fall in past year Last assessed Fall Risk: 02/14/25 Dental Screening Dental Screen Date: 08/23/24 HPI Discharge follow up HPI Details Pt presents for f/u of SNF discharged 2 weeks ago after R hip intratrochanteric fracture and ORIF at [facility]. [facility] Medical History Anxiety and depression Chronic bilateral low back pain Annual physical exam Aortic valve sclerosis IBS (irritable bowel syndrome) Osteopenia Hyperlipidemia HTN (hypertension) Surgical History Hx of section Hx of appendectomy Family History Father Heart problem Mother Hypertension Family history of thyroid problem Brother Heart problem Social History Housing: House Alcohol intake: never Patient Tobacco Use Status: Never used Tobacco e-Cigarette/Vaping Use: Never Used service: No Current occupational status: retired Cognitive needs: No Hearing needs: No Vision needs: Yes Questionnaire Thrive Questionnaire Date Thrive assessed: 12/01/23 I am a: Patient What is your living situation today?: I have a steady place to live Within the past 12 months, did the food you bought not last and you didn't have the money to get more?: Never true Within the past 12 months, did you worry whether your food would run out before you got money to buy more?: Never true Do you have trouble paying for medicines?: No Do you have trouble getting transportation to medical appointments?: No Do you have trouble paying your heating and electricity bill?: No Do you have trouble taking care of your child, family member or friend?: No Do you have trouble with day-to-day activities such as bathing, preparing meals, shopping, managing finances, etc.?: Yes Are you interested in more education?: Yes Please select the resources that you would like help with: Care for elder or disabled Currently or been in a relationship where the following occur: No concerns reported THRIVE Score: 0 ASAF-7 AMB Questionnaire ASAF-7 Date ASAF - 7 assessed: 08/23/24 Source: Developed by Drs. Davey Quevedo, Gi Lamas, Wilson Ramirez and colleagues, with an educational chandrakant from [employer]. Physical exam (Primary Care) Vital Signs: Last Vital Signs Pulse 81 02/14/25 14:25 BP 120/80 02/14/25 14:25 Pulse Ox 96 02/14/25 14:25 BMI result Body Mass Index 27.1 Tobacco/Smoking Status: Tobacco use Status Tobacco use date assessed 02/14/25 02/14/25 14:26 Patient Tobacco Use Status Never used Tobacco 02/14/25 13:53 e-Cigarette/Vaping Use Never Used 02/14/25 13:53 Thrive Assessment: Date of Thrive Assessment Date Thrive assessed 12/01/23 02/14/25 13:53 Currently or been in a relationship where the following occur: No concerns reported Coding
[2025-02-14 14:25] VITALS: BP 120/80; PULSE 81; O2SAT 96; BMI 27.1
[2025-02-14 15:25] VITALS: BMI 27.1
--- NOTE | 2025-02-14 15:25 | A.OFFVIS_ITS ---
Intake Vital Signs 02/14/25 14:25 02/14/25 15:25 Height 5 ft Weight 139 lb BMI 27.1 27.1 BP 120/80 Blood Pressure Location Lt brachial Position Sitting Pulse 81 Pulse Source Pulse Oximeter Pulse Oximetry (%) 96 Intake Visit Reasons: AWV Allergies amoxicillin Allergy (Unknown, Verified 02/14/25 14:26) Rash clavulanic acid (Augmentin) Allergy (Unknown, Verified 02/14/25 14:26) Rash Medication List - Last Reconciled 02/14/25 by Jud Nino MD amlodipine 2.5 mg PO DAILY atorvastatin 20 mg PO .qd calcipotriene 0.005% 1 appl topical BEDTIME celecoxib (Celebrex) 200 mg PO BEDTIME cholecalciferol (vitamin D3) 50 mcg PO DAILY clobetasol 0.05% 1 appl topical DAILY gabapentin 100 mg PO BID magnesium oxide 400 mg PO BID mirtazapine 30 mg PO DAILY zenkykew-hzzq-YO-calcium-mins 9 mg iron-400 mcg (Therapeutic-M) 1 tab PO DAILY pantoprazole 40 mg PO DAILY sertraline (Zoloft) 50 mg PO DAILY HPI AWV HPI Details Initiated the conversation about Advanced Directives. Advanced Directives help? patients prepare for current and future decisions about their medical treatment? and place of care. Discussed with patient that it is a process where a patients? current condition and prognosis are reviewed, their wishes for information? regarding their illness are elicited, and likely medical dilemmas are presented? and options discussed. The form can be amended as needed, reviewed yearly and? make changes as needed IPPE/AWV ? year old presents? for her ? Annual? Wellness Visit, initial visit.? Medical / Social History Reviewed? Past Medical History ?Yes? . ? [place]? of Care / Care Team list updated ?Yes . ? Surgical/Hospitalization? History ?Yes . ? Current Medications? (including OTC and supplements) ?Yes . ? Family History ?Yes? . ? Tobacco? Control form ?Yes . ? AUDIT-C (Alcohol use) form? ?Yes . ? Illicit drug use in Social? History ?Yes . ? Current diagnosis of? depression? ?No ? Appropriate PHQ2/PHQ9? completed ?Yes . ? Data entered by ?Medical? Line Department Supervisor and reviewed by provider ? Fall Risk ? Fall? History? Have you had any falls with? injury in the past year? ?No . ? Have you had two or more? falls in the past year? ?No . ? Fall Risk Assessment: ?No? falls in the past year . ? HRA filled out by? the patient, reviewed by Provider and scanned. ? IPPE/AWV ? Balance? [place]? ?Yes . ? Tandem? walk ?Yes . ? Walk and? Turn ?Yes . ? Rise from? sit to stand ?Yes . ?Vision? Corrective? lens ?Yes ? Vision? screen ? Up-to-date, has an appointment [] for vision? screening and glaucoma screening ?Hearing? Whisper? test ?pass .? Initiated the conversation about Advanced Directives. Advanced Directives help? patients prepare for current and future decisions about their medical treatment? and place of care. Discussed with patient that it is a process where a patients? current condition and prognosis are reviewed, their wishes for information? regarding their illness are elicited, and likely medical dilemmas are presented? and options discussed. The form can be amended as needed, reviewed yearly and? make changes as needed Written? Plan?Completed. See Patient? Documents. [facility] Medical History (Updated 02/14/25 @ 15:45 by Jud Nino MD) Hip fracture, left Hyperglycemia Chronic anxiety Anxiety and depression Chronic bilateral low back pain Annual physical exam Aortic valve sclerosis IBS (irritable bowel syndrome) Osteopenia Hyperlipidemia HTN (hypertension) Surgical History Hx of section Hx of appendectomy Family History Father Heart problem Mother Hypertension Family history of thyroid problem Brother Heart problem Social History Housing: House Alcohol intake: never Patient Tobacco Use Status: Never used Tobacco e-Cigarette/Vaping Use: Never Used service: No Current occupational status: retired Cognitive needs: No Hearing needs: No Vision needs: Yes Questionnaire Medicare Wellness Checkup What is your age?: 78 or older What gender do you identify with?: female During the past 4 weeks, how much have you been bothered by emotional problems such as feeling anxious, depressed, irritable, sad or downhearted, and blue?: slightly During the past 4 weeks, has your physical & emotional health limited your social activities with family, friends, neighbors, or groups?: not at all During the past 4 weeks, how much bodily pain have you generally had?: mild pain During the past 4 weeks, was someone available to help you if you needed & wanted help?: yes, as much as I wanted During the past 4 weeks, what was the hardest physical activity you could do for at least 2 minutes?: heavy Can you get to places out of walking distance without help? (For eg., can you travel alone on buses, taxis or drive your car?): Yes Can you go shopping for groceries or clothes without someone's help?: No Can you prepare your own meals?: Yes Can you do your housework without help?: Yes Because of any health problems, do you need the help of another person with your personal care needs such as eating, bathing, dressing or getting around the house?: No Can you handle your own money without help?: Yes During the past 4 weeks, how would you rate your health in general?: good During the past 4 weeks how have things been going for you?: pretty well Are you having difficulties driving your car?: not applicable, I don't use a car Do you always fasten your seat belt when you are in a car?: yes, usually During past 4 weeks, have you been bothered by the following: never: Falling or dizzy when standing up, Sexual problems?, Trouble eating well?, Teeth or denture problems? and Problems using the telephone? and sometimes: Tiredness or fatigue? Have you fallen 2 or more times in the past year?: No Are you afraid of falling?: Yes Are you a smoker?: no During the past 4 weeks, how many drinks of wine, beer, or other alcoholic beverages did you have?: no alcohol at all Do you exercise for about 20 minutes 3 or more times a week?: yes, some of the time Have you been given information to help with the following?: no: Hazards in your house that might hurt you? and no: Keeping track of your medications? How often do you have trouble taking medicines the way you have been told to take them?: I always take medicine as prescribed How confident are you that you can control & manage most of your health problems?: somewhat confident What is your race?: White Mini Mental State Exam (MMSE) Orientation What is the (year) (season) (date) (day) (month)?: year, season, date, day and month Where are we (state) (county) (town or city) (hospital) (floor)?: state, county, town or city, hospital/clinic and floor Registration Name of 3 unrelated objects clearly and slowly, then ask patient to repeat all 3 of them. (1st repeat determines score. Make sure they can repeat all three): object 1, object 2 and object 3 Attention & Calculation (CHOOSE ONE) Spell WORLD backwards (DLROW): 5 letters Recall Ask patient to repeat the 3 items from question #3.: object 1, object 2 and object 3 Language Show patient a wristwatch & ask what it is. Repeat for pencil.: watch and pencil Ask the patient to repeat the phrase 'No ifs, ands, or buts' after you.: correct Ask the patient to 'take a piece of paper with their right hand' 'fold paper in half' 'place paper on floor': take paper in right hand, fold paper in half and place paper on floor Print the sentence 'CLOSE YOUR EYES' on a piece. If patient actually closes eyes then score.: followed written direction Give patient a blank piece of paper & ask to write a sentence. Score if it contains a noun & verb.: sentence contains subject and verb Score Score: 29 PHQ-9 Over the last 2 weeks, how often have you been bothered by any of the following problems? 1. Little interest or pleasure in doing things: not at all 2. Feeling down, depressed, or hopeless: not at all 3. Trouble falling or staying asleep, or sleeping too much: not at all 4. Feeling tired or having little energy: not at all 5. Poor appetite or overeating: not at all 6. Feeling bad about yourself - or that you are a failure or have let yourself or your family down: not at all 7. Trouble concentrating on things, such as reading the newspaper or watching television: not at all 8. Moving or speaking so slowly that other people could have noticed. Or the opposite - being so fidgety or restless that you have been moving around a lot more than usual: not at all 9. Thoughts that you would be better off or of hurting yourself in some way: not at all Total score: 0 Depression Screening Interpretation: Negative Depression Screening Done: Yes Source: Developed by Drs. Davey Quevedo, Gi Lamas, Wilson Ramirez and colleagues, with an educational chandrakant from [employer]. Review of Systems Const All systems reviewed & are unremarkable except as noted in HPI and below Eyes Reports no additional complaints ENT Reports no additional complaints Card Reports no additional complaints Resp Reports no additional complaints GI Reports no additional complaints Reports no additional complaints Physical Exam Vital Signs: Last Vital Signs Pulse 81 02/14/25 14:25 BP 120/80 02/14/25 14:25 Pulse Ox 96 02/14/25 14:25 BMI result Body Mass Index 27.1 Const General: no acute distress HEENT Head: Yes normal to inspection Eyes General: appearance normal, both eyes and all related structures Neck Neck: Yes no lymphadenopathy and Yes supple Resp Effort & Inspection: normal respiratory effort Auscultation: clear to auscultation bilaterally Cardio Rhythm: regular rhythm Heart sounds: S1 normal heart sound present and S2 normal heart sound present GI Inspection: Yes normal to inspection Palpation (GI): Soft to palpation Auscultation: normal bowel sounds Extrem General: Yes no clubbing, cyanosis or edema Assessment & Plan Assessment & Plan (1) Hip fracture, left: Comment: s/p ORIF [facility] 12/2024 Code(s): S72.002A - Fracture of unspecified part of neck of left femur, initial encounter for closed fracture Plan: Continue home physical therapy and exercises, patient will continue Tylenol Arthritis and Celebrex as needed for the pain (2) HTN (hypertension): Code(s): I10 - Essential (primary) hypertension Plan: Continue current medication (3) Hyperlipidemia: Code(s): E78.5 - Hyperlipidemia, unspecified Plan: Continue statin (4) Vitamin D deficiency: Code(s): E55.9 - Vitamin D deficiency, unspecified Plan: Continue vitamin-D supplement Orders: Orders Lipid Panel Today E55.9 - Vitamin D deficiency, unspecified, E78.5 - Hyperlipidemia, unspecified, R73.9 - Hyperglycemia, unspecified TSH reflex Free T4 Today E55.9 - Vitamin D deficiency, unspecified, E78.5 - Hyperlipidemia, unspecified, R73.9 - Hyperglycemia, unspecified Comprehensive [place]. Panel Fast Today E55.9 - Vitamin D deficiency, unspecified, E78.5 - Hyperlipidemia, unspecified, I10 - Essential (primary) hypertension Complete Blood Count Auto Diff Today E55.9 - Vitamin D deficiency, unspecified, E78.5 - Hyperlipidemia, unspecified, I10 - Essential (primary) hypertension Vitamin D 25-OH Total Today E55.9 - Vitamin D deficiency, unspecified, E78.5 - Hyperlipidemia, unspecified, I10 - Essential (primary) hypertension Hemoglobin A1c Today E55.9 - Vitamin D deficiency, unspecified, E78.5 - Hyperlipidemia, unspecified, R73.9 - Hyperglycemia, unspecified Medications: New celecoxib (Celebrex) 200 mg PO BEDTIME 90 caps 1RF Refilled cholecalciferol (vitamin D3) 50 mcg PO DAILY 90 tabs 3RF Quality Reporting (2019) Depression/Bipolar (159/160/161/177) PHQ-9: Total score: 0 Coding Level of Care Code Medicare Subsequent (G0439) Diagnoses Hip fracture, left S72.002A HTN (hypertension) I10 Hyperlipidemia E78.5 Vitamin D deficiency E55.9 CPT Codes Advance Care Planning - Advance Care Planning discussion: On file, no changes ([id number]) Advance Care Planning - Time spent: 1-15 minutes, on File ([id number]) Advance Care Planning Advance Care Planning discussion: On file, no changes Forms completed: Health Care Proxy Time spent: 1-15 minutes, on File
--- OUTSIDE RECORDS SUMMARY | 2025-02-14 19:50 | XMS_ITS | Encounter Summary ---
Author Organization [facility] Address [address] [place] [address] Care Team Providers Care Paperhanger Name Role Phone Jermaine Cool Primary Care Provider Encounter Details Date Type Department Care Team (Late st Contact Info) Description 01/25/2025 Lab Requisition [facility] - Main Lab [address] [facility] [place] [address] Nidia Sanchez MD [address] [phone] Weakness Social History Tobacco Use Types Packs/Day Years Used Date Smoking Tobacco: Never Assessed Comments Unknown Sex and Gender Information Value Date Recorded Sex Assigned at Not on file Legal Sex Female 3:26 PM EST Gender Identity Not on file Sexual Orientation Not on file documented as of this encounter Plan of Treatment Not on file documented as of this encounter Procedures Procedure Name Priority Date/Time Associated Diagnosis Comments COMPLETE BLOOD COUNT Routine 01/26/2025 8:18 AM EST Weakness BASIC METABOLIC PANEL Routine 01/26/2025 8:18 AM EST Weakness documented in this encounter Results * (ABNORMAL) Basic metabolic panel (01/26/2025 8:18 AM EST) Sodium 140 133 - 145 mmol/L 01/26/2025 11:02 AM EST [facility] Potassium 3.7 3.5 - 5.5 mmol/L 01/26/2025 11:02 AM EST [facility] Chloride 102 96 - 110 mmol/L 01/26/2025 11:02 AM EST [facility] CO2 25 21 - 32 mmol/L 01/26/2025 11:02 AM [facility] Anion Gap 13(H) 3 - 11 01/26/2025 11:02 AM [facility] Glucose 95 70 - 100 mg/dL 01/26/2025 11:02 AM [facility] BUN 9 5 - 25 mg/dL 01/26/2025 11:02 AM [facility] Creatinine 0.72 0.50 - 1.10 mg/dL 01/26/2025 11:02 AM [facility] eGFR 82 >=60 mL/min/1. 73m2 01/26/2025 11:02 AM [facility] Comment:Calculation based on the Chronic Kidney Disease Epidemiology Collaboration (CKD-EPI) equation refit without adjustment for race. BUN/Creatinine Ratio 12.5 01/26/2025 11:02 AM [facility] Calcium 9.0 8.5 - 10.5 mg/dL 01/26/2025 11:02 AM [facility] Blood Venous blood specimen / Unknown Venipuncture / Unknown 01/26/2025 8:18 AM EST 01/26/2025 9:49 AM EST us Nidia Sanchez MD LAB BLOOD ORDERABLES Fin al Result [facility] [address] [place] [address], * (ABNORMAL) Complete blood count (01/26/2025 8:18 AM EST) [facility] WBC 6.0 4.8 - 10.8 K/[facility] LAB HEMETOLOGY METHOD 01/26/2025 10:24 AM EST [facility] RBC 4.00 3.80 - 4.80 M/[facility] LAB HEMETOLOGY METHOD 01/26/2025 10:24 AM [facility] Hemoglobin 13.3 11.5 - 16.0 g/dL LAB HEMETOLOGY METHOD 01/26/2025 10:24 AM [facility] Hematocrit 41.0 35.0 - 47.0 % LAB HEMETOLOGY METHOD 01/26/2025 10:24 AM [facility] MCV 103.3(H) 79.0 - 98.0 FL LAB HEMETOLOGY METHOD 01/26/2025 10:24 AM [facility] MCH 33.5(H) 27.0 - 32.0 pcg LAB HEMETOLOGY METHOD 01/26/2025 10:24 AM [facility] MCHC 32.4 32.0 - 37.0 g/dL LAB HEMETOLOGY METHOD 01/26/2025 10:24 AM [facility] RDW 11.3 11.0 - 15.0 % LAB HEMETOLOGY METHOD 01/26/2025 10:24 AM [facility] Platelets 288 130 - 400 K/mcL LAB HEMETOLOGY METHOD 01/26/2025 10:24 AM [facility] MPV 10.1 7.0 - 11.0 FL LAB HEMETOLOGY METHOD 01/26/2025 10:24 AM [facility] NRBC 0.0 <1.0 % LAB HEMETOLOGY METHOD 01/26/2025 10:24 AM [facility] NRBC Absolute 0.00 <0.10 K/mcL LAB HEMETOLOGY METHOD 01/26/2025 10:24 AM [facility] Blood Venous blood specimen / Unknown Venipuncture / Unknown 01/26/2025 8:18 AM EST 01/26/2025 9:49 AM EST Nidia Sanchez MD LAB BLOOD ORDERABLES Fin al Result [facility] [address] [place] [address], documented in this encounter Visit Diagnoses Diagnosis Weakness Other malaise and fatigue documented in this encounter Care Teams Paperhanger Relationship Specialty Start Date End Date Jermaine Cool PA [address] [place] [id number] PCP - General 12/09/24 documented as of this encounter
--- OUTSIDE RECORDS SUMMARY | 2025-02-14 19:51 | XMS_ITS | Encounter Summary ---
Author Organization [facility] Address [address] [place] [address] Care Team Providers Care Hairmasters Manager Name Role Phone Jermaine Cool Primary Care Provider [phone] Encounter Details Date Type Department Care Team (Late st Contact Info) Description 12/28/2024 Lab Requisition [facility] - Main Lab [address] [place] [address] Nidia Sacnhez MD [address] [id number] Weakness Social History Tobacco Use Types Packs/Day [...] Associated Diagnosis Comments COMPLETE BLOOD COUNT Routine 12/29/2024 8:06 AM EDT Weakness BASIC METABOLIC PANEL Routine 12/29/2024 8:06 AM EDT Weakness documented in this encounter Results * Basic metabolic panel (12/29/2024 8:06 AM EDT) Sodium 138 133 - 145 mmol/L LAB CHEMISTRY METHOD 12/29/2024 1:26 PM EDT [facility] Potassium 4.1 3.5 - 5.5 mmol/L LAB CHEMISTRY METHOD 12/29/2024 1:26 PM EDT [facility] Chloride 105 96 - 110 mmol/L LAB CHEMISTRY METHOD 12/29/2024 1:26 PM EDT [facility] CO2 24 21 - 32 mmol/L LAB CHEMISTRY METHOD 12/29/2024 1:26 PM T [facility] Anion Gap 9 3 - 11 LAB CHEMISTRY METHOD 12/29/2024 1:26 PM [facility] Glucose 78 70 - 100 mg/dL LAB CHEMISTRY METHOD 12/29/2024 1:26 PM [facility] BUN 9 5 - 25 mg/dL LAB CHEMISTRY METHOD 12/29/2024 1:26 PM [facility] Creatinine 0.60 0.50 - 1.10 mg/dL LAB CHEMISTRY METHOD 12/29/2024 1:26 PM [facility] eGFR 88 >=60 mL/min/1. 73m2 LAB CHEMISTRY METHOD 12/29/2024 1:26 PM [facility] Comment:Calculation based on the Chronic Kidney Disease Epidemiology Collaboration (CKD-EPI) equation refit without adjustment for race. BUN/Creatinine Ratio 15.0 LAB CHEMISTRY METHOD 12/29/2024 1:26 PM [facility] Calcium 9.0 8.5 - 10.5 mg/dL LAB CHEMISTRY METHOD 12/29/2024 1:26 PM [facility] Blood Venous blood specimen / Unknown Venipuncture / Unknown 12/29/2024 8:06 AM EDT 12/29/2024 11:36 AM EDT us Nidia Sanchez MD LAB BLOOD ORDERABLES Fin al Result [facility] [address] [place] [address], * (ABNORMAL) Complete blood count (12/29/2024 8:06 AM EDT) WBC 5.6 4.8 - 10.8 K/mcL LAB HEMETOLOGY METHOD 12/29/2024 11:56 AM [facility] RBC 3.30(L) 3.80 - 4.80 M/mcL LAB HEMETOLOGY METHOD 12/29/2024 11:56 AM [facility] Hemoglobin 11.5 11.5 - 16.0 g/dL LAB HEMETOLOGY METHOD 12/29/2024 11:56 AM [facility] Hematocrit 35.4 35.0 - 47.0 % LAB HEMETOLOGY METHOD 12/29/2024 11:56 AM [facility] MCV 106.6(H) 79.0 - 98.0 FL LAB HEMETOLOGY METHOD 12/29/2024 11:56 AM [facility] MCH 34.6(H) 27.0 - 32.0 pcg LAB HEMETOLOGY METHOD 12/29/2024 11:56 AM [facility] MCHC 32.5 32.0 - 37.0 g/dL LAB HEMETOLOGY METHOD 12/29/2024 11:56 AM [facility] RDW 12.2 11.0 - 15.0 % LAB HEMETOLOGY METHOD 12/29/2024 11:56 AM [facility] Platelets 295 130 - 400 K/mcL LAB HEMETOLOGY METHOD 12/29/2024 11:56 AM [facility] MPV 9.8 7.0 - 11.0 FL LAB HEMETOLOGY METHOD 12/29/2024 11:56 AM [facility] NRBC 0.0 <1.0 % LAB HEMETOLOGY METHOD 12/29/2024 11:56 AM [facility] NRBC Absolute 0.00 <0.10 K/mcL LAB HEMETOLOGY METHOD 12/29/2024 11:56 AM [facility] Blood Venous blood specimen / Unknown Venipuncture / Unknown 12/29/2024 8:06 AM EDT 12/29/2024 11:35 AM EDT us Nidia Sanchez MD LAB BLOOD ORDERABLES Fin al Result [facility] [address] [place] [address], documented in this encounter Visit Diagnoses Diagnosis Weakness Other malaise and fatigue documented in this encounter Care Teams Hairmasters Manager Relationship Specialty Start Date End Date Jermaine Cool PA [address] [phone] PCP - General 12/09/24 documented as of this encounter
--- OUTSIDE RECORDS SUMMARY | 2025-02-14 19:51 | XMS_ITS | Clinical Summary ---
Author Organization [address] Address [address] [place] [address] Phone Care Team Providers Care Tile Molder Name Role Phone Jermaine Cool Primary Care Provider Encounters Date Type Department Care Team Description 02/02/2025 Lab Requisition [facility] - Main Lab [address] [place] [address] Nidia Sanchez MD Weakness 01/29/2025 Lab Requisition [facility] - Main Lab [address] [place] [address] Nidia Sanchez MD Weakness 01/25/2025 Lab Requisition [facility] - Main Lab [address] [place] [address] Ndiia Sanchez MD Weakness 01/22/2025 Lab Requisition [facility] - Main Lab [address] [place] [address] Nidia Sanchez MD Weakness 01/18/2025 Lab Requisition [facility] - Main Lab [address] [place] [address] Nidia Sanchez MD Weakness 01/14/2025 Lab Requisition [facility] - Main Lab [address] [place] [address] Nidia Sanchez MD Weakness 01/11/2025 Lab Requisition [facility] - Main Lab [address] [place] [address] Nidia Sanchez MD Weakness 01/06/2025 Lab Requisition [facility] - Main Lab [address] [place] [address] Nidia Sanchez MD Weakness 01/04/2025 Lab Requisition [facility] - Main Lab [address] [place] [address] Nidia Sanchez MD Weakness 01/02/[address] [facility] Main Lab [address] [place] [address] Nidia Sanchez MD Weakness 12/30/[address] [facility] Main Lab [address] [place] [address] Nidia Sanchez MD Weakness 12/28/[address] [facility] Main Lab [address] [place] [address] Nidia Sanchez MD Weakness 12/26/2024 Lab Requisition [facility] - Main Lab [address] [place] [address] Nidia Sanchez MD Weakness 12/22/[address] [facility] Main Lab [address] [place] [address] Mandy Garcia MD Other longterm (current) drug therapy 12/19/[address] [facility] Main Lab [address] [place] [address] Mandy Garcia MD Encounter for other general examination 12/16/2024 Lab Requisition [facility] - Main Lab [address] [place] [address] Mandy Garcia MD Other longterm (current) drug therapy 12/13/2024 Lab Requisition [facility] - Main Lab [address] [place] [address] Mandy Garcia MD Encounter for other general examination 12/09/2024 Lab Requisition [facility] - Main Lab [address] [facility] [place] [address] Jermaine Cool PA Encounter for other general examination from Last 3 Months Social History Tobacco Use Types Packs/Day Years Used Date Smoking Tobacco: Never Assessed Comments Unknown Sex and Gender Information Value Date Recorded Sex Assigned at Not on file Legal Sex Female 3:26 PM EST Gender Identity Not on file Sexual Orientation Not on file Plan of Treatment Health Maintenance Due Date Last Done Comments Zoster Vaccines (1 of 2) 1988 RSV Immunization Adult Patients (1 - 1-dose 75+ series) 2013 Pneumococcal Vaccine: 50+ Years (2 of 2 - PCV) 12/22/2015 12/21/2014, 09/19/2013 Falls Risk Assessment 02/05/2022 Medicare Annual Wellness Visit 02/05/2022 Osteoporosis Screening (Bone Density Screening) 02/05/2022 Social Influencers of Health Screening 02/05/2022 Depression Screening 03/09/2024 COVID-19 Vaccine ( season) 2024 05/31/2021, 05/08/2020, 04/14/2020 Influenza Vaccine (#1) 2024 , 12/20/2020, 12/14/2018, Additional history exists DTaP,Tdap,and Td Vaccines (2 - Td or Tdap) 05/01/2027 05/01/2017 HIB Vaccines Aged Out No longer eligi [...] to complete this topic RSV Immunization Patients Under 20 months Aged Out No longer eligible based on patient's age to complete this topic Varicella Vaccines Aged Out No longer eligible based on patient's age to complete this topic Procedures Procedure Name Priority Date/Time Associated Diagnosis Comments BASIC METABOLIC PANEL Routine 01/30/2025 8:23 AM EST Weakness COMPLETE BLOOD COUNT Routine 01/30/2025 8:23 AM EST Weakness BASIC METABOLIC PANEL Routine 01/26/2025 8:18 AM EST Weakness COMPLETE BLOOD COUNT Routine 01/26/2025 8:18 AM EST Weakness BASIC METABOLIC PANEL Routine 01/23/2025 8:36 AM EST Weakness COMPLETE BLOOD COUNT Routine 01/23/2025 8:36 AM EST Weakness BASIC METABOLIC PANEL Routine 01/19/2025 8:31 AM EST Weakness COMPLETE BLOOD COUNT Routine 01/19/2025 8:31 AM EST Weakness BASIC METABOLIC PANEL Routine 01/16/2025 9:46 AM EST Weakness COMPLETE BLOOD COUNT Routine 01/16/2025 9:46 AM EST Weakness BASIC METABOLIC PANEL Routine 01/12/2025 8:38 AM EST Weakness COMPLETE BLOOD COUNT Routine 01/12/2025 8:38 AM EST Weakness BASIC METABOLIC PANEL Routine 01/09/2025 7:22 AM EST Weakness COMPLETE BLOOD COUNT Routine 01/09/2025 7:22 AM EST Weakness BASIC METABOLIC PANEL Routine 01/05/2025 8:29 AM EDT Weakness COMPLETE BLOOD COUNT Routine 01/05/2025 8:29 AM EDT Weakness BASIC METABOLIC PANEL Routine 01/02/2025 8:41 AM EDT Weakness COMPLETE BLOOD COUNT Routine 01/02/2025 8:41 AM EDT Weakness BASIC METABOLIC PANEL Routine 12/29/2024 8:06 AM EDT Weakness COMPLETE BLOOD COUNT Routine 12/29/2024 8:06 AM EDT Weakness FOLATE Routine 12/26/2024 8:07 AM EDT Weakness VITAMIN B12 Routine 12/26/2024 8:07 AM EDT Weakness THYROID STIMULATING HORMONE WITH REFLEX TO FREE T4 AND FREE T3 Routine 12/26/2024 8:07 AM EDT Weakness COMPREHENSIVE METABOLIC PANEL Routine 12/26/2024 8:07 AM EDT Weakness COMPLETE BLOOD COUNT Routine 12/26/2024 8:07 AM EDT Weakness BASIC METABOLIC PANEL Routine 12/22/2024 6:55 AM EDT Other longterm (current) drug therapy CBC WITH AUTO DIFFERENTIAL Routine 12/19/2024 6:37 AM EDT Encounter for other general examination CBC AND DIFFERENTIAL Routine 12/19/2024 6:37 AM EDT Encounter for other general examination BASIC METABOLIC PANEL Routine 12/19/2024 6:37 AM EDT Encounter for other general examination COMPREHENSIVE METABOLIC PANEL Routine 12/16/2024 6:32 AM EDT Other longterm (current) drug therapy CBC WITH AUTO DIFFERENTIAL Routine 12/13/2024 6:28 AM EDT Encounter for other general examination BASIC METABOLIC PANEL Routine 12/13/2024 6:28 AM EDT Encounter for other general examination CBC AND DIFFERENTIAL Routine 12/13/2024 6:28 AM EDT Encounter for other general examination CBC WITH AUTO DIFFERENTIAL Routine 12/09/2024 6:05 AM EDT Encounter for other general examination MAGNESIUM Routine 12/09/2024 6:05 AM EDT Encounter for other general examination COMPREHENSIVE METABOLIC PANEL Routine 12/09/2024 6:05 AM EDT Encounter for other general examination CBC AND DIFFERENTIAL Routine 12/09/2024 6:05 AM EDT Encounter for other general examination from Last 3 Months Results * (ABNORMAL) Complete blood count (01/30/2025 8:23 AM EST) Only the most recent of11 resultswithin the time period is included. WBC 6.3 4.8 - 10.8 K/mcL LAB HEMETOLOGY METHOD 01/30/2025 12:35 PM [facility] RBC 3.90 3.80 - 4.80 M/mcL LAB HEMETOLOGY METHOD 01/30/2025 12:35 PM [facility] Hemoglobin 13.1 11.5 - 16.0 g/dL LAB HEMETOLOGY METHOD 01/30/2025 12:35 PM [facility] Hematocrit 40.1 35.0 - 47.0 % LAB HEMETOLOGY METHOD 01/30/2025 12:35 PM [facility] MCV 103.6(H) 79.0 - 98.0 FL LAB HEMETOLOGY METHOD 01/30/2025 12:35 PM [facility] MCH 33.9(H) 27.0 - 32.0 pcg LAB HEMETOLOGY METHOD 01/30/2025 12:35 PM [facility] MCHC 32.7 32.0 - 37.0 g/dL LAB HEMETOLOGY METHOD 01/30/2025 12:35 PM [facility] RDW 11.5 11.0 - 15.0 % LAB HEMETOLOGY METHOD 01/30/2025 12:35 PM [facility] Platelets 276 130 - 400 K/mcL LAB HEMETOLOGY METHOD 01/30/2025 12:35 PM [facility] MPV 10.1 7.0 - 11.0 FL LAB HEMETOLOGY METHOD 01/30/2025 12:35 PM [facility] NRBC 0.0 <1.0 % LAB HEMETOLOGY METHOD 01/30/2025 12:35 PM [facility] NRBC Absolute 0.00 <0.10 K/mcL LAB HEMETOLOGY METHOD 01/30/2025 12:35 PM [facility] Blood Venous blood specimen / Unknown Venipuncture / Unknown 01/30/2025 8:23 AM EST 01/30/2025 11:02 AM EST us Nidia Sanchez MD LAB BLOOD ORDERABLES Fin al Result [facility] [address] [place] [address], * Basic metabolic panel (01/30/2025 8:23 AM EST) Only the most recent of13 resultswithin the time period is included. Sodium 141 133 - 145 mmol/L 01/30/2025 12:03 PM [facility] Potassium 3.8 3.5 - 5.5 mmol/L 01/30/2025 12:03 PM [facility] Chloride 103 96 - 110 mmol/L 01/30/2025 12:03 PM [facility] CO2 27 21 - 32 mmol/L 01/30/2025 12:03 PM [facility] Anion Gap 11 3 - 11 01/30/2025 12:03 PM EST [facility] Glucose 91 70 - 100 mg/dL 01/30/2025 12:03 PM [facility] BUN 9 5 - 25 mg/dL 01/30/2025 12:03 PM [facility] Creatinine 0.79 0.50 - 1.10 mg/dL 01/30/2025 12:03 PM [facility] eGFR 73 >=60 mL/min/1. 73m2 01/30/2025 12:03 PM [facility] Comment:Calculation based on the Chronic Kidney Disease Epidemiology Collaboration (CKD-EPI) equation refit without adjustment for race. BUN/Creatinine Ratio 11.4 01/30/2025 12:03 PM [facility] Calcium 8.8 8.5 - 10.5 mg/dL 01/30/2025 12:03 PM [facility] Blood Venous blood specimen / Unknown Venipuncture / Unknown 01/30/2025 8:23 AM EST 01/30/2025 11:02 AM EST Nidia Sanchez MD LAB BLOOD ORDERABLES Fin al Result [facility] [address] [place] [address], * Thyroid stimulating hormone with reflex to free t4 and free t3 (12/26/2024 8:07 AM EDT) TSH 2.82 0.40 - 4.00 mcIU/mL LAB CHEMISTRY METHOD 12/26/2024 8:56 PM EDT [facility] Blood Venous blood specimen / Unknown Venipuncture / Unknown 12/26/2024 8:07 AM EDT 12/26/2024 10:15 AM EDT Nidia Sacnhez MD LAB BLOOD ORDERABLES Fin al Result [facility] [address] [place] [address], [place] [phone] * (ABNORMAL) Folate (12/26/2024 8:07 AM EDT) [facility] Folate >20.0(H) 2.8 - 17.0 ng/ml LAB CHEMISTRY METHOD 12/26/2024 12:01 PM EDT [facility] Blood Venous blood specimen / Unknown Venipuncture / Unknown 12/26/2024 8:07 AM EDT 12/26/2024 10:15 AM EDT Nidia Sanchez MD LAB BLOOD ORDERABLES Fin al Result Performing Organization Address [facility] de Phone Number [facility] [address] [place] [address], [place] [phone] * Vitamin B12 (12/26/2024 8:07 AM EDT) [facility] Vitamin B-12 504 250 - 900 pcg/mL LAB CHEMISTRY METHOD 12/26/2024 12:01 PM EDT [facility] Blood Venous blood specimen / Unknown Venipuncture / Unknown 12/26/2024 8:07 AM EDT 12/26/2024 10:15 AM EDT Nidia Sanchez MD LAB BLOOD ORDERABLES Fin al Result Performing Organization Address [facility] Co de Phone Number [facility] [address] [place] [address], [place] [phone] * (ABNORMAL) Comprehensive metabolic panel (12/26/2024 8:07 AM EDT) Only the most recent of3 resultswithin the time period is included. [facility] Sodium 140 133 - 145 mmol/L LAB CHEMISTRY METHOD 12/26/2024 12:01 PM EDT [facility] Potassium 4.1 3.5 - 5.5 mmol/L LAB CHEMISTRY METHOD 12/26/2024 12:[address] [facility] Chloride 106 96 - 110 mmol/L LAB CHEMISTRY METHOD 12/26/2024 12:[address] [facility] CO2 26 21 - 32 mmol/L LAB CHEMISTRY METHOD 12/26/2024 12:[address] [facility] Anion Gap 8 3 - 11 LAB CHEMISTRY METHOD 12/26/2024 12:[address] [facility] Glucose 77 70 - 100 mg/dL LAB CHEMISTRY METHOD 12/26/2024 12:[address] [facility] BUN 9 5 - 25 mg/dL LAB CHEMISTRY METHOD 12/26/2024 12:01 [facility] Creatinine 0.62 0.50 - 1.10 mg/dL LAB CHEMISTRY METHOD 12/26/2024 12:[address] [facility] eGFR 87 >=60 mL/min/1. 73m2 LAB CHEMISTRY METHOD 12/26/2024 12:[address] [facility] Comment:Calculation based on the Chronic Kidney Disease Epidemiology Collaboration (CKD-EPI) equation refit without adjustment for race. BUN/Creatinine Ratio 14.5 LAB CHEMISTRY METHOD 12/26/2024 12:[address] [facility] Calcium 9.1 8.5 - 10.5 mg/dL LAB CHEMISTRY METHOD 12/26/2024 12:01 [facility] AST (SGOT) 21 10 - 42 unit/L LAB CHEMISTRY METHOD 12/26/2024 12:01 [facility] ALT (SGPT) 23 10 - 60 unit/L LAB CHEMISTRY METHOD 12/26/2024 12:01 [facility] Alkaline Phosphatase 144(H) 42 - 121 unit/L LAB CHEMISTRY METHOD 12/26/2024 12:[address] [facility] Total Protein 6.0 6.0 - 8.0 g/dL LAB CHEMISTRY METHOD 12/26/2024 12:01 PM EDT [facility] Albumin 3.1(L) 3.2 - 5.0 g/dL LAB CHEMISTRY METHOD 12/26/2024 12:01 PM EDT [facility] Total Bilirubin 0.7 0.0 - 1.4 mg/dL LAB CHEMISTRY METHOD 12/26/2024 12:01 PM EDT [facility] Blood Venous blood specimen / Unknown Venipuncture / Unknown 12/26/2024 8:07 AM EDT 12/26/2024 10:15 AM EDT us Nidia Sanchez MD LAB BLOOD ORDERABLES Fin al Result [facility] [address] [place] [address], * (ABNORMAL) CBC auto differential (12/19/2024 6:37 AM EDT) Only the most recent of3 resultswithin the time period is included. WBC 5.9 4.8 - 10.8 K/mcL LAB HEMETOLOGY METHOD 12/19/2024 12:[address] [facility] RBC 3.10(L) 3.80 - 4.80 M/mcL LAB HEMETOLOGY METHOD 12/19/2024 12:[address] [facility] Hemoglobin 10.8(L) 11.5 - 16.0 g/dL LAB HEMETOLOGY METHOD 12/19/2024 12:[address] [facility] Hematocrit 33.5(L) 35.0 - 47.0 % LAB HEMETOLOGY METHOD 12/19/2024 12:[address] [facility] MCV 109.1(H) 79.0 - 98.0 FL LAB HEMETOLOGY METHOD 12/19/2024 12:[address] [facility] MCH 35.2(H) 27.0 - 32.0 pcg LAB HEMETOLOGY METHOD [facility] MCHC 32.2 32.0 - 37.0 g/dL LAB HEMETOLOGY METHOD 12/19/2024 12:[address] [facility] RDW 13.1 11.0 - 15.0 % LAB HEMETOLOGY METHOD 12/19/2024 12:19 PM EDT [facility] Platelets 512(H) 130 - 400 K/mcL LAB HEMETOLOGY METHOD 12/19/2024 12:[address] [facility] MPV 9.1 7.0 - 11.0 FL LAB HEMETOLOGY METHOD 12/19/2024 12:[address] [facility] NRBC 0.0 <1.0 % LAB HEMETOLOGY METHOD 12/19/2024 12:[address] [facility] NRBC Absolute 0.00 <0.10 K/mcL LAB HEMETOLOGY METHOD 12/19/2024 12:[address] [facility] Neutrophils Relative 61.9 % LAB HEMETOLOGY METHOD 12/19/2024 12:[address] [facility] Lymphocytes Relative 25.2 % LAB HEMETOLOGY METHOD 12/19/2024 12:[address] [facility] Monocytes Relative 7.8 % LAB HEMETOLOGY METHOD 12/19/2024 12:[address] [facility] Eosinophils Relative 3.6 % LAB HEMETOLOGY METHOD 12/19/2024 12:[address] [facility] Basophils Relative 0.7 % LAB HEMETOLOGY METHOD 12/19/2024 12:[address] [facility] Immature Granulocytes Relative 0.8 % LAB HEMETOLOGY METHOD 12/19/2024 12:19 PM EDT [facility] Neutrophils Absolute 3.66 1.50 - 7.00 K/mcL LAB HEMETOLOGY METHOD 12/19/2024 12:19 PM EDT [facility] Lymphocytes Absolute 1.49 1.00 - 5.00 K/mcL LAB HEMETOLOGY METHOD 12/19/2024 12:19 PM EDT [facility] Monocytes Absolute 0.46 0.20 - 1.00 K/mcL LAB HEMETOLOGY METHOD 12/19/2024 12:19 PM EDT [facility] Eosinophils Absolute 0.21 0.00 - 0.50 K/mcL LAB HEMETOLOGY METHOD 12/19/2024 12:19 PM EDT [facility] Basophils Absolute 0.04 0.00 - 0.20 K/mcL LAB HEMETOLOGY METHOD 12/19/2024 12:19 PM EDT [facility] Immature Granulocytes Absolute 0.05(H) 0.00 - 0.03 K/mcL LAB HEMETOLOGY METHOD 12/19/2024 12:19 PM EDT [facility] Blood Venous blood specimen / Unknown Venipuncture / Unknown 12/19/2024 6:37 AM EDT 12/19/2024 10:50 AM EDT us Mandy Garcia MD LAB BLOOD ORDERABLES Final Resu lt [facility] [address] [place] [address], * Magnesium (12/09/2024 6:05 AM EDT) Magnesium 2.0 1.9 - 2.6 mg/dL LAB CHEMISTRY METHOD 12/09/2024 11:22 AM EDT [facility] Blood Venous blood specimen / Unknown Venipuncture / Unknown 12/09/2024 6:05 AM EDT 12/09/2024 10:11 AM EDT Jermaine SCHUSTER LAB BLOOD ORDERABLES Final R esult [facility] [address] [place] [address], [place] [phone] from Last 3 Months Insurance MEDICARE [facility] Advance Directives Documents on File Type Date Recorded Patient Camp Tender Expl anation Health Care Decision (hx) 11/03/2023 TAWNYA RODRIGUES DIRECTIVE Care Teams Tile Molder Relationship Specialty Start Date End Date Jermaine Cool PA [address] [id number] PCP - General 12/09/24
--- OUTSIDE RECORDS SUMMARY | 2025-02-14 19:51 | XMS_ITS | Encounter Summary ---
Author Organization [facility] Address [address] [place] [address] Care Team Providers Care Field Contact Technician Name Role Phone Jermaine Cool Primary Care Provider Encounter Details Date Type Department Care Team (Late st Contact Info) Description 12/19/2024 Lab Requisition [facility] - Main Lab [address] [place] [address] Mandy Garcia MD [address] [place], [place] [phone] Encounter for other general examination Social History Tobacco Use Types Packs/Day Years [...] Procedure Name Priority Date/Time Associated Diagnosis Comments CBC WITH AUTO DIFFERENTIAL Routine 12/19/2024 6:37 AM EDT Encounter for other general examination CBC AND DIFFERENTIAL Routine 12/19/2024 6:37 AM EDT Encounter for other general examination BASIC METABOLIC PANEL Routine 12/19/2024 6:37 AM EDT Encounter for other general examination documented in this encounter Results * (ABNORMAL) CBC auto differential (12/19/2024 6:37 AM EDT) WBC 5.9 4.8 - 10.8 K/mcL LAB HEMETOLOGY METHOD 12/19/2024 12:19 PM EDT [facility] RBC 3.10(L) 3.80 - 4.80 M/mcL LAB HEMETOLOGY METHOD 12/19/2024 12:19 PM [facility] Hemoglobin 10.8(L) 11.5 - 16.0 g/dL LAB HEMETOLOGY METHOD 12/19/2024 12:19 PM [facility] Hematocrit 33.5(L) 35.0 - 47.0 % LAB HEMETOLOGY METHOD 12/19/2024 12:19 PM [facility] MCV 109.1(H) 79.0 - 98.0 FL LAB HEMETOLOGY METHOD 12/19/2024 12:19 PM [facility] MCH 35.2(H) 27.0 - 32.0 pcg LAB HEMETOLOGY METHOD 12/19/2024 12:19 PM [facility] MCHC 32.2 32.0 - 37.0 g/dL LAB HEMETOLOGY METHOD 12/19/2024 12:19 PM [facility] RDW 13.1 11.0 - 15.0 % LAB HEMETOLOGY METHOD 12/19/2024 12:19 PM [facility] Platelets 512(H) 130 - 400 K/mcL LAB HEMETOLOGY METHOD 12/19/2024 12:19 PM [facility] MPV 9.1 7.0 - 11.0 FL LAB HEMETOLOGY METHOD 12/19/2024 12:19 PM [facility] NRBC 0.0 <1.0 % LAB HEMETOLOGY METHOD 12/19/2024 12:19 PM [facility] NRBC Absolute 0.00 <0.10 K/mcL LAB HEMETOLOGY METHOD 12/19/2024 12:19 PM [facility] Neutrophils Relative 61.9 % LAB HEMETOLOGY METHOD 12/19/2024 12:19 PM [facility] Lymphocytes Relative 25.2 % LAB HEMETOLOGY METHOD 12/19/2024 12:19 PM [facility] Monocytes Relative 7.8 % LAB HEMETOLOGY METHOD 12/19/2024 12:19 PM [facility] Eosinophils Relative 3.6 % LAB HEMETOLOGY METHOD 12/19/2024 12:19 PM [facility] Basophils Relative 0.7 % LAB HEMETOLOGY METHOD 12/19/2024 12:19 PM [facility] Immature Granulocytes Relative 0.8 % LAB HEMETOLOGY METHOD 12/19/2024 12:19 PM [facility] Neutrophils Absolute 3.66 1.50 - 7.00 K/mcL LAB HEMETOLOGY METHOD 12/19/2024 12:19 PM [facility] Lymphocytes Absolute 1.49 1.00 - 5.00 K/mcL LAB HEMETOLOGY METHOD 12/19/2024 12:19 PM [facility] Monocytes Absolute 0.46 0.20 - 1.00 K/mcL LAB HEMETOLOGY METHOD 12/19/2024 12:19 PM [facility] Eosinophils Absolute 0.21 0.00 - 0.50 K/mcL LAB HEMETOLOGY METHOD 12/19/2024 12:19 PM [facility] Basophils Absolute 0.04 0.00 - 0.20 K/mcL LAB HEMETOLOGY METHOD 12/19/2024 12:19 PM [facility] Immature Granulocytes Absolute 0.05(H) 0.00 - 0.03 K/mcL LAB HEMETOLOGY METHOD 12/19/2024 12:19 PM [facility] Blood Venous blood specimen / Unknown Venipuncture / Unknown 12/19/2024 6:37 AM EDT 12/19/2024 10:50 AM EDT us Mandy Garcia MD LAB BLOOD ORDERABLES Final Resu lt [facility] [address] [place] [address], * Basic metabolic panel (12/19/2024 6:37 AM EDT) Sodium 136 133 - 145 mmol/L LAB CHEMISTRY METHOD 12/19/2024 1:11 PM [facility] Potassium 4.4 3.5 - 5.5 mmol/L LAB CHEMISTRY METHOD 12/19/2024 1:11 PM [facility] Chloride 103 96 - 110 mmol/L LAB CHEMISTRY METHOD 12/19/2024 1:11 PM [facility] CO2 24 21 - 32 mmol/L LAB CHEMISTRY METHOD 12/19/2024 1:11 PM [facility] Anion Gap 9 3 - 11 LAB CHEMISTRY METHOD 12/19/2024 1:11 PM [facility] Glucose 84 70 - 100 mg/dL LAB CHEMISTRY METHOD 12/19/2024 1:11 PM [facility] BUN 10 5 - 25 mg/dL LAB CHEMISTRY METHOD 12/19/2024 1:11 PM [facility] Creatinine 0.58 0.50 - 1.10 mg/dL LAB CHEMISTRY METHOD 12/19/2024 1:11 PM [facility] eGFR 88 >=60 mL/min/1. 73m2 LAB CHEMISTRY METHOD 12/19/2024 1:11 PM [facility] Comment:Calculation based on the Chronic Kidney Disease Epidemiology Collaboration (CKD-EPI) equation refit without adjustment for race. BUN/Creatinine Ratio 17.2 LAB CHEMISTRY METHOD 12/19/2024 1:11 PM [facility] Calcium 8.9 8.5 - 10.5 mg/dL LAB CHEMISTRY METHOD 12/19/2024 1:11 PM EDT [facility] Blood Venous blood specimen / Unknown Venipuncture / Unknown 12/19/2024 6:37 AM EDT 12/19/2024 10:50 AM EDT us Mandy Garcia MD LAB BLOOD ORDERABLES Final Resu lt [facility] [address] [place] [address], documented in this encounter Visit Diagnoses Diagnosis Encounter for other general examination documented in this encounter Care Teams Field Contact Technician Relationship Specialty Start Date End Date Jermaine Cool PA [address] [phone] PCP - General 12/09/24 documented as of this encounter
--- OUTSIDE RECORDS SUMMARY | 2025-02-14 19:51 | XMS_ITS | Encounter Summary ---
Author Organization [facility] Address [address] [place] [address] Care Team Providers Care General Operations Agent Name Role Phone Jermaine Cool Primary Care Provider Encounter Details Date Type Department Care Team (Late st Contact Info) Description 01/29/2025 Lab Requisition [facility] - Main Lab [address] [place] [address] Nidia Sanchez MD [address] [phone] Weakness Social History Tobacco Use Types Packs/Day [...] Associated Diagnosis Comments COMPLETE BLOOD COUNT Routine 01/30/2025 8:23 AM EST Weakness BASIC METABOLIC PANEL Routine 01/30/2025 8:23 AM EST Weakness documented in this encounter Results * Basic metabolic panel (01/30/2025 8:23 AM EST) Sodium 141 133 - 145 mmol/L 01/30/2025 12:03 PM EST [facility] Potassium 3.8 3.5 - 5.5 mmol/L 01/30/2025 12:03 PM EST [facility] Chloride 103 96 - 110 mmol/L 01/30/2025 12:03 PM EST [facility] CO2 27 21 - 32 mmol/L 01/30/2025 12:03 PM [facility] Anion Gap 11 3 - 11 01/30/2025 12:03 PM [facility] Glucose 91 70 - 100 mg/dL 01/30/2025 12:03 PM [facility] BUN 9 5 - 25 mg/dL 01/30/2025 12:03 PM [facility] Creatinine 0.79 0.50 - 1.10 mg/dL 01/30/2025 12:03 PM [facility] eGFR 73 >=60 mL/min/1. 73m2 01/30/2025 12:03 PM [facility] Comment:Calculation based on the Chronic Kidney Disease Epidemiology Collaboration (CKD-EPI) equation refit without adjustment for race. BUN/Creatinine Ratio 11.4 01/30/2025 12:03 PM [facility] Calcium 8.8 8.5 - 10.5 mg/dL 01/30/2025 12:03 PM [facility] Blood Venous blood specimen / Unknown Venipuncture / Unknown 01/30/2025 8:23 AM EST 01/30/2025 11:02 AM EST us Nidia Sanchez MD LAB BLOOD ORDERABLES Fin al Result [facility] [address] [place] [address], * (ABNORMAL) Complete blood count (01/30/2025 8:23 AM EST) WBC 6.3 4.8 - 10.8 K/mcL LAB HEMETOLOGY METHOD 01/30/2025 12:35 PM [facility] RBC 3.90 3.80 - 4.80 M/mcL LAB HEMETOLOGY METHOD 01/30/2025 12:35 PM EST [facility] Hemoglobin 13.1 11.5 - 16.0 g/dL LAB HEMETOLOGY METHOD 01/30/2025 12:35 PM [facility] Hematocrit 40.1 35.0 - 47.0 % LAB HEMETOLOGY METHOD 01/30/2025 12:35 PM [facility] MCV 103.6(H) 79.0 - 98.0 FL LAB HEMETOLOGY METHOD 01/30/2025 12:35 PM [facility] MCH 33.9(H) 27.0 - 32.0 pcg LAB HEMETOLOGY METHOD 01/30/2025 12:35 PM [facility] MCHC 32.7 32.0 - 37.0 g/dL LAB HEMETOLOGY METHOD 01/30/2025 12:35 PM [facility] RDW 11.5 11.0 - 15.0 % LAB HEMETOLOGY METHOD 01/30/2025 12:35 PM [facility] Platelets 276 130 - 400 K/mcL LAB HEMETOLOGY METHOD 01/30/2025 12:35 PM [facility] MPV 10.1 7.0 - 11.0 FL LAB HEMETOLOGY METHOD 01/30/2025 12:35 PM [facility] NRBC 0.0 <1.0 % LAB HEMETOLOGY METHOD 01/30/2025 12:35 PM [facility] NRBC Absolute 0.00 <0.10 K/mcL LAB HEMETOLOGY METHOD 01/30/2025 12:35 PM [facility] Blood Venous blood specimen / Unknown Venipuncture / Unknown 01/30/2025 8:23 AM EST 01/30/2025 11:02 AM EST us Nidia Sanchez MD LAB BLOOD ORDERABLES Fin al Result [facility] [address] [place] [address], documented in this encounter Visit Diagnoses Diagnosis Weakness Other malaise and fatigue documented in this encounter Care Teams General Operations Agent Relationship Specialty Start Date End Date Jermaine Cool PA [address] [phone] PCP - General 12/09/24 documented as of this encounter
--- OUTSIDE RECORDS SUMMARY | 2025-02-14 19:51 | XMS_ITS | Encounter Summary ---
Author Organization [facility] Address [address] [place] [address] Care Team Providers Care Substance Abuse Rn Name Role Phone Jermaine Cool Primary Care Provider Encounter Details Date Type Department Care Team (Late st Contact Info) Description 12/13/2024 Lab Requisition [facility] - Main Lab [address] [place] [address] Mandy Garcia MD [address] [place], [place] [phone] Encounter for other general examination Social History [...] Diagnosis Comments CBC WITH AUTO DIFFERENTIAL Routine 12/13/2024 6:28 AM EDT Encounter for other general examination CBC AND DIFFERENTIAL Routine 12/13/2024 6:28 AM EDT Encounter for other general examination BASIC METABOLIC PANEL Routine 12/13/2024 6:28 AM EDT Encounter for other general examination documented in this encounter Results * (ABNORMAL) CBC auto differential (12/13/2024 6:28 AM EDT) WBC 7.9 4.8 - 10.8 K/mcL LAB HEMETOLOGY METHOD 12/13/2024 10:09 AM EDT [facility] RBC 3.30(L) 3.80 - 4.80 M/mcL LAB HEMETOLOGY METHOD 12/13/2024 10:09 AM [facility] Hemoglobin 11.5 11.5 - 16.0 g/dL LAB HEMETOLOGY METHOD 12/13/2024 10:09 AM [facility] Hematocrit 35.0 35.0 - 47.0 % LAB HEMETOLOGY METHOD 12/13/2024 10:09 AM [facility] MCV 107.7(H) 79.0 - 98.0 FL LAB HEMETOLOGY METHOD 12/13/2024 10:09 AM [facility] MCH 35.4(H) 27.0 - 32.0 pcg LAB HEMETOLOGY METHOD 12/13/2024 10:09 AM [facility] MCHC 32.9 32.0 - 37.0 g/dL LAB HEMETOLOGY METHOD 12/13/2024 10:09 AM [facility] RDW 13.0 11.0 - 15.0 % LAB HEMETOLOGY METHOD 12/13/2024 10:09 AM [facility] Platelets 422(H) 130 - 400 K/mcL LAB HEMETOLOGY METHOD 12/13/2024 10:09 AM [facility] MPV 9.6 7.0 - 11.0 FL LAB HEMETOLOGY METHOD 12/13/2024 10:09 AM [facility] NRBC 0.0 <1.0 % LAB HEMETOLOGY METHOD 12/13/2024 10:09 AM [facility] NRBC Absolute 0.00 <0.10 K/mcL LAB HEMETOLOGY METHOD 12/13/2024 10:09 AM [facility] Neutrophils Relative 70.4 % LAB HEMETOLOGY METHOD 12/13/2024 10:09 AM [facility] Lymphocytes Relative 19.9 % LAB HEMETOLOGY METHOD 12/13/2024 10:09 AM [facility] Monocytes Relative 6.4 % LAB HEMETOLOGY METHOD 12/13/2024 10:09 AM [facility] Eosinophils Relative 2.0 % LAB HEMETOLOGY METHOD 12/13/2024 10:09 AM [facility] Basophils Relative 0.5 % LAB HEMETOLOGY METHOD 12/13/2024 10:09 AM [facility] Immature Granulocytes Relative 0.8 % LAB HEMETOLOGY METHOD 12/13/2024 10:09 AM [facility] Neutrophils Absolute 5.54 1.50 - 7.00 K/mcL LAB HEMETOLOGY METHOD 12/13/2024 10:09 AM [facility] Lymphocytes Absolute 1.57 1.00 - 5.00 K/mcL LAB HEMETOLOGY METHOD 12/13/2024 10:09 AM [facility] Monocytes Absolute 0.50 0.20 - 1.00 K/mcL LAB HEMETOLOGY METHOD 12/13/2024 10:09 AM [facility] Eosinophils Absolute 0.16 0.00 - 0.50 K/mcL LAB HEMETOLOGY METHOD 12/13/2024 10:09 AM [facility] Basophils Absolute 0.04 0.00 - 0.20 K/mcL LAB HEMETOLOGY METHOD 12/13/2024 10:09 AM [facility] Immature Granulocytes Absolute 0.06(H) 0.00 - 0.03 K/mcL LAB HEMETOLOGY METHOD 12/13/2024 10:09 AM [facility] Blood Venous blood specimen / Unknown Venipuncture / Unknown 12/13/2024 6:28 AM EDT 12/13/2024 8:08 AM EDT us Mandy Garcia MD LAB BLOOD ORDERABLES Final Resu lt [facility] [address] [place] [address], * Basic metabolic panel (12/13/2024 6:28 AM EDT) Sodium 135 133 - 145 mmol/L LAB CHEMISTRY METHOD 12/13/2024 10:33 AM [facility] Potassium 4.3 3.5 - 5.5 mmol/L LAB CHEMISTRY METHOD 12/13/2024 10:33 AM [facility] Chloride 100 96 - 110 mmol/L LAB CHEMISTRY METHOD 12/13/2024 10:33 AM [facility] CO2 25 21 - 32 mmol/L LAB CHEMISTRY METHOD 12/13/2024 10:33 AM [facility] Anion Gap 10 3 - 11 LAB CHEMISTRY METHOD 12/13/2024 10:33 AM [facility] Glucose 90 70 - 100 mg/dL LAB CHEMISTRY METHOD 12/13/2024 10:33 AM [facility] BUN 11 5 - 25 mg/dL LAB CHEMISTRY METHOD 12/13/2024 10:33 AM [facility] Creatinine 0.51 0.50 - 1.10 mg/dL LAB CHEMISTRY METHOD 12/13/2024 10:33 AM [facility] eGFR 91 >=60 mL/min/1. 73m2 LAB CHEMISTRY METHOD 12/13/2024 10:33 AM [facility] Comment:Calculation based on the Chronic Kidney Disease Epidemiology Collaboration (CKD-EPI) equation refit without adjustment for race. BUN/Creatinine Ratio 21.6 LAB CHEMISTRY METHOD 12/13/2024 10:33 AM [facility] Calcium 8.8 8.5 - 10.5 mg/dL LAB CHEMISTRY METHOD 12/13/2024 10:33 AM [facility] Blood Venous blood specimen / Unknown Venipuncture / Unknown 12/13/2024 6:28 AM EDT 12/13/2024 8:08 AM EDT us Mandy Garcia MD LAB BLOOD ORDERABLES Final Resu lt [facility] [address] [place] [address], documented in this encounter Visit Diagnoses Diagnosis Encounter for other general examination documented in this encounter Care Teams Substance Abuse Rn Relationship Specialty Start Date End Date Jermaine Cool PA [address] [place] [phone] PCP - General 12/09/24 documented as of this encounter
--- OUTSIDE RECORDS SUMMARY | 2025-02-14 19:51 | XMS_ITS | Encounter Summary ---
Author Organization [facility] Address [id number] [place] [phone] Care Team Providers Care Arbitrator Name Role Phone Jermaine Cool Primary Care Provider Encounter Details Date Type Department Care Team (Late st Contact Info) Description 02/02/2025 Lab Requisition [facility] - Main Lab [address] [facility] [place] [address] Nidia Sanchez MD [address] [phone] Weakness Social History Tobacco Use Types Packs/Day Years Used Date Smoking Tobacco: Never Assessed Comments Unknown Sex and Gender Information Value Date Recorded Sex Assigned at Not on file Legal Sex Female 3:26 PM EST Gender Identity Not on file Sexual Orientation Not on file documented as of this encounter Plan of Treatment Not on file documented as of this encounter Visit Diagnoses Diagnosis Weakness Other malaise and fatigue documented in this encounter Care Teams Arbitrator Relationship Specialty Start Date End Date Jermaine Cool PA [address] [phone] PCP - General 12/09/24 documented as of this encounter
--- OUTSIDE RECORDS SUMMARY | 2025-02-14 19:51 | XMS_ITS | Encounter Summary ---
Author Organization [facility] Address [address] [place] [address] Care Team Providers Care Jacquard Card Lacer Name Role Phone Jermaine Cool Primary Care Provider Encounter Details Date Type Department Care Team (Late st Contact Info) Description 01/11/2025 Lab Requisition [facility] - Main Lab [address] [place] [address] Nidia Sanchez MD [address] [phone] Weakness Social History Tobacco Use Types Packs/Day [...] Associated Diagnosis Comments COMPLETE BLOOD COUNT Routine 01/12/2025 8:38 AM EST Weakness BASIC METABOLIC PANEL Routine 01/12/2025 8:38 AM EST Weakness documented in this encounter Results * Basic metabolic panel (01/12/2025 8:38 AM EST) Sodium 140 133 - 145 mmol/L LAB CHEMISTRY METHOD 01/12/2025 11:29 AM EST [facility] Potassium 4.2 3.5 - 5.5 mmol/L LAB CHEMISTRY METHOD 01/12/2025 11:29 AM EST [facility] Chloride 106 96 - 110 mmol/L LAB CHEMISTRY METHOD 01/12/2025 11:29 AM [facility] CO2 25 21 - 32 mmol/L LAB CHEMISTRY METHOD 01/12/2025 11:29 AM [facility] Anion Gap 9 3 - 11 LAB CHEMISTRY METHOD 01/12/2025 11:29 AM [facility] Glucose 91 70 - 100 mg/dL LAB CHEMISTRY METHOD 01/12/2025 11:29 AM [facility] BUN 9 5 - 25 mg/dL LAB CHEMISTRY METHOD 01/12/2025 11:29 AM [facility] Creatinine 0.65 0.50 - 1.10 mg/dL LAB CHEMISTRY METHOD 01/12/2025 11:29 AM [facility] eGFR 86 >=60 mL/min/1. 73m2 LAB CHEMISTRY METHOD 01/12/2025 11:29 AM [facility] Comment:Calculation based on the Chronic Kidney Disease Epidemiology Collaboration (CKD-EPI) equation refit without adjustment for race. BUN/Creatinine Ratio 13.8 LAB CHEMISTRY METHOD 01/12/2025 11:29 AM [facility] Calcium 9.2 8.5 - 10.5 mg/dL LAB CHEMISTRY METHOD 01/12/2025 11:29 AM [facility] Blood Venous blood specimen / Unknown Venipuncture / Unknown 01/12/2025 8:38 AM EST 01/12/2025 10:15 AM EST us Nidia Sanchez MD LAB BLOOD ORDERABLES Fin al Result [facility] [address] [place] [address], * (ABNORMAL) Complete blood count (01/12/2025 8:38 AM EST) WBC 5.7 4.8 - 10.8 K/mcL LAB HEMETOLOGY METHOD 01/12/2025 10:33 AM [facility] RBC 3.90 3.80 - 4.80 M/mcL LAB HEMETOLOGY METHOD 01/12/2025 10:33 AM [facility] Hemoglobin 13.6 11.5 - 16.0 g/dL LAB HEMETOLOGY METHOD 01/12/2025 10:33 AM [facility] Hematocrit 41.2 35.0 - 47.0 % LAB HEMETOLOGY METHOD 01/12/2025 10:33 AM [facility] MCV 105.1(H) 79.0 - 98.0 FL LAB HEMETOLOGY METHOD 01/12/2025 10:33 AM [facility] MCH 34.7(H) 27.0 - 32.0 pcg LAB HEMETOLOGY METHOD 01/12/2025 10:33 AM [facility] MCHC 33.0 32.0 - 37.0 g/dL LAB HEMETOLOGY METHOD 01/12/2025 10:33 AM [facility] RDW 11.6 11.0 - 15.0 % LAB HEMETOLOGY METHOD 01/12/2025 10:33 AM [facility] Platelets 326 130 - 400 K/mcL LAB HEMETOLOGY METHOD 01/12/2025 10:33 AM [facility] MPV 9.6 7.0 - 11.0 FL LAB HEMETOLOGY METHOD 01/12/2025 10:33 AM [facility] NRBC 0.0 <1.0 % LAB HEMETOLOGY METHOD 01/12/2025 10:33 AM [facility] NRBC Absolute 0.00 <0.10 K/mcL LAB HEMETOLOGY METHOD 01/12/2025 10:33 AM [facility] Blood Venous blood specimen / Unknown Venipuncture / Unknown 01/12/2025 8:38 AM EST 01/12/2025 10:15 AM EST us Nidia Sanchez MD LAB BLOOD ORDERABLES Fin al Result [facility] [address] [place] [address], documented in this encounter Visit Diagnoses Diagnosis Weakness Other malaise and fatigue documented in this encounter Care Teams Jacquard Card Lacer Relationship Specialty Start Date End Date Jermaine Cool PA [address] [place] [phone] PCP - General 12/09/24 documented as of this encounter
--- OUTSIDE RECORDS SUMMARY | 2025-02-14 19:51 | XMS_ITS | Encounter Summary ---
Author Organization [facility] Address [address] [place] [address] Care Team Providers Care Timber Robber Name Role Phone Jermaine Cool Primary Care Provider Encounter Details Date Type Department Care Team (Late st Contact Info) Description 01/06/2025 Lab Requisition [facility] - Main Lab [address] [place] [address] Nidia Sanchez MD [address] [phone] Weakness Social History Tobacco Use Types Packs/Day [...] Associated Diagnosis Comments COMPLETE BLOOD COUNT Routine 01/09/2025 7:22 AM EST Weakness BASIC METABOLIC PANEL Routine 01/09/2025 7:22 AM EST Weakness documented in this encounter Results * Basic metabolic panel (01/09/2025 7:22 AM EST) Sodium 139 133 - 145 mmol/L LAB CHEMISTRY METHOD 01/09/2025 11:20 AM EST [facility] Potassium 4.0 3.5 - 5.5 mmol/L LAB CHEMISTRY METHOD 01/09/2025 11:20 AM EST [facility] Chloride 105 96 - 110 mmol/L LAB CHEMISTRY METHOD 01/09/2025 11:20 AM [facility] CO2 26 21 - 32 mmol/L LAB CHEMISTRY METHOD 01/09/2025 11:20 AM [facility] Anion Gap 8 3 - 11 LAB CHEMISTRY METHOD 01/09/2025 11:20 AM [facility] Glucose 87 70 - 100 mg/dL LAB CHEMISTRY METHOD 01/09/2025 11:20 AM [facility] BUN 10 5 - 25 mg/dL LAB CHEMISTRY METHOD 01/09/2025 11:20 AM [facility] Creatinine 0.64 0.50 - 1.10 mg/dL LAB CHEMISTRY METHOD 01/09/2025 11:20 AM [facility] eGFR 86 >=60 mL/min/1. 73m2 LAB CHEMISTRY METHOD 01/09/2025 11:20 AM [facility] Comment:Calculation based on the Chronic Kidney Disease Epidemiology Collaboration (CKD-EPI) equation refit without adjustment for race. BUN/Creatinine Ratio 15.6 LAB CHEMISTRY METHOD 01/09/2025 11:20 AM [facility] Calcium 8.6 8.5 - 10.5 mg/dL LAB CHEMISTRY METHOD 01/09/2025 11:20 AM [facility] Blood Venous blood specimen / Unknown Venipuncture / Unknown 01/09/2025 7:22 AM EST 01/09/2025 10:30 AM EST us Nidia Sanchez MD LAB BLOOD ORDERABLES Fin al Result [facility] [address] [place] [address], * (ABNORMAL) Complete blood count (01/09/2025 7:22 AM EST) WBC 5.2 4.8 - 10.8 K/mcL LAB HEMETOLOGY METHOD 01/09/2025 10:52 AM [facility] RBC 3.40(L) 3.80 - 4.80 M/mcL LAB HEMETOLOGY METHOD 01/09/2025 10:52 AM [facility] Hemoglobin 11.7 11.5 - 16.0 g/dL LAB HEMETOLOGY METHOD 01/09/2025 10:52 AM [facility] Hematocrit 35.2 35.0 - 47.0 % LAB HEMETOLOGY METHOD 01/09/2025 10:52 AM [facility] MCV 103.8(H) 79.0 - 98.0 FL LAB HEMETOLOGY METHOD 01/09/2025 10:52 AM [facility] MCH 34.5(H) 27.0 - 32.0 pcg LAB HEMETOLOGY METHOD 01/09/2025 10:52 AM [facility] MCHC 33.2 32.0 - 37.0 g/dL LAB HEMETOLOGY METHOD 01/09/2025 10:52 AM [facility] RDW 11.7 11.0 - 15.0 % LAB HEMETOLOGY METHOD 01/09/2025 10:52 AM [facility] Platelets 306 130 - 400 K/mcL LAB HEMETOLOGY METHOD 01/09/2025 10:52 AM [facility] MPV 9.9 7.0 - 11.0 FL LAB HEMETOLOGY METHOD 01/09/2025 10:52 AM [facility] NRBC 0.0 <1.0 % LAB HEMETOLOGY METHOD 01/09/2025 10:52 AM [facility] NRBC Absolute 0.00 <0.10 K/mcL LAB HEMETOLOGY METHOD 01/09/2025 10:52 AM [facility] Blood Venous blood specimen / Unknown Venipuncture / Unknown 01/09/2025 7:22 AM EST 01/09/2025 10:30 AM EST us Nidia Sanchez MD LAB BLOOD ORDERABLES Fin al Result [facility] ([facility]) [facility] [address] [place] [address], documented in this encounter Visit Diagnoses Diagnosis Weakness Other malaise and fatigue documented in this encounter Care Teams Timber Robber Relationship Specialty Start Date End Date Jermaine Cool PA [address] [place] [phone] PCP - General 12/09/24 documented as of this encounter
--- OUTSIDE RECORDS SUMMARY | 2025-02-14 19:51 | XMS_ITS | Encounter Summary ---
Author Organization [facility] Address [address] [place] [address] Care Team Providers Care Revenue Tax Specialist Name Role Phone Jermaine Cool Primary Care Provider [phone] Encounter Details Date Type Department Care Team (Late st Contact Info) Description 01/22/2025 Lab Requisition [facility] - Main Lab [address] [place] [address] Nidia Sanchez MD [address] [phone] Weakness Social History Tobacco Use Types Packs/Day [...] Associated Diagnosis Comments COMPLETE BLOOD COUNT Routine 01/23/2025 8:36 AM EST Weakness BASIC METABOLIC PANEL Routine 01/23/2025 8:36 AM EST Weakness documented in this encounter Results * Basic metabolic panel (01/23/2025 8:36 AM EST) Sodium 140 133 - 145 mmol/L LAB CHEMISTRY METHOD 01/23/2025 11:[address] [facility] Potassium 4.1 3.5 - 5.5 mmol/L LAB CHEMISTRY METHOD 01/23/2025 11:[address] [facility] Chloride 107 96 - 110 mmol/L LAB CHEMISTRY METHOD 01/23/2025 11:11 AM [facility] CO2 26 21 - 32 mmol/L LAB CHEMISTRY METHOD 01/23/2025 11:11 AM [facility] Anion Gap 7 3 - 11 LAB CHEMISTRY METHOD 01/23/2025 11:11 AM [facility] Glucose 91 70 - 100 mg/dL LAB CHEMISTRY METHOD 01/23/2025 11:11 AM [facility] BUN 13 5 - 25 mg/dL LAB CHEMISTRY METHOD 01/23/2025 11:11 AM [facility] Creatinine 0.60 0.50 - 1.10 mg/dL LAB CHEMISTRY METHOD 01/23/2025 11:11 AM [facility] eGFR 88 >=60 mL/min/1. 73m2 LAB CHEMISTRY METHOD 01/23/2025 11:11 AM [facility] Comment:Calculation based on the Chronic Kidney Disease Epidemiology Collaboration (CKD-EPI) equation refit without adjustment for race. BUN/Creatinine Ratio 21.7 LAB CHEMISTRY METHOD 01/23/2025 11:11 AM [facility] Calcium 8.9 8.5 - 10.5 mg/dL LAB CHEMISTRY METHOD 01/23/2025 11:11 AM [facility] Blood Venous blood specimen / Unknown Venipuncture / Unknown 01/23/2025 8:36 AM EST 01/23/2025 10:05 AM EST us Nidia Sanchez MD LAB BLOOD ORDERABLES Fin al Result [facility] [address] [place] [address], * (ABNORMAL) Complete blood count (01/23/2025 8:36 AM EST) WBC 6.7 4.8 - 10.8 K/mcL LAB HEMETOLOGY METHOD 01/23/2025 10:28 AM [facility] RBC 3.60(L) 3.80 - 4.80 M/mcL LAB HEMETOLOGY METHOD 01/23/2025 10:28 AM [facility] Hemoglobin 12.5 11.5 - 16.0 g/dL LAB HEMETOLOGY METHOD 01/23/2025 10:28 AM [facility] Hematocrit 37.0 35.0 - 47.0 % LAB HEMETOLOGY METHOD 01/23/2025 10:28 AM [facility] MCV 101.9(H) 79.0 - 98.0 FL LAB HEMETOLOGY METHOD 01/23/2025 10:28 AM [facility] MCH 34.4(H) 27.0 - 32.0 pcg LAB HEMETOLOGY METHOD 01/23/2025 10:28 AM [facility] MCHC 33.8 32.0 - 37.0 g/dL LAB HEMETOLOGY METHOD 01/23/2025 10:28 AM [facility] RDW 11.6 11.0 - 15.0 % LAB HEMETOLOGY METHOD 01/23/2025 10:28 AM [facility] Platelets 278 130 - 400 K/mcL LAB HEMETOLOGY METHOD 01/23/2025 10:28 AM [facility] MPV 10.0 7.0 - 11.0 FL LAB HEMETOLOGY METHOD 01/23/2025 10:28 AM [facility] NRBC 0.0 <1.0 % LAB HEMETOLOGY METHOD 01/23/2025 10:28 AM [facility] NRBC Absolute 0.00 <0.10 K/mcL LAB HEMETOLOGY METHOD 01/23/2025 10:28 AM [facility] Blood Venous blood specimen / Unknown Venipuncture / Unknown 01/23/2025 8:36 AM EST 01/23/2025 10:05 AM EST us Nidia Sanchez MD LAB BLOOD ORDERABLES Fin al Result [facility] ([facility]) [facility] [address] [place] [address], documented in this encounter Visit Diagnoses Diagnosis Weakness Other malaise and fatigue documented in this encounter Care Teams Revenue Tax Specialist Relationship Specialty Start Date End Date Jermaine Cool PA [address] [place] [phone] PCP - General 12/09/24 documented as of this encounter
--- OUTSIDE RECORDS SUMMARY | 2025-02-14 19:51 | XMS_ITS | Encounter Summary ---
Author Organization [facility] Address [address] [place] [address] Care Team Providers Care Drainage Inspector Name Role Phone Jermaine Cool Primary Care Provider Encounter Details Date Type Department Care Team (Late st Contact Info) Description 12/09/2024 Lab Requisition [facility] - Main Lab [address] [facility] [place] [address] Jermaine Cool PA 8[address] [facility] [address] [place] [address] Encounter for other general examination Social History [...] Diagnosis Comments CBC WITH AUTO DIFFERENTIAL Routine 12/09/2024 6:05 AM EDT Encounter for other general examination CBC AND DIFFERENTIAL Routine 12/09/2024 6:05 AM EDT Encounter for other general examination MAGNESIUM Routine 12/09/2024 6:05 AM EDT Encounter for other general examination COMPREHENSIVE METABOLIC PANEL Routine 12/09/2024 6:05 AM EDT Encounter for other general examination documented in this encounter Results * (ABNORMAL) CBC auto differential (12/09/2024 6:05 AM EDT) WBC 6.9 4.8 - 10.8 K/mcL LAB HEMETOLOGY METHOD 12/09/2024 10:34 AM [facility] RBC 3.00(L) 3.80 - 4.80 M/mcL LAB HEMETOLOGY METHOD 12/09/2024 10:34 AM [facility] Hemoglobin 10.8(L) 11.5 - 16.0 g/dL LAB HEMETOLOGY METHOD 12/09/2024 10:34 AM [facility] Hematocrit 32.4(L) 35.0 - 47.0 % LAB HEMETOLOGY METHOD 12/09/2024 10:34 AM [facility] MCV 106.6(H) 79.0 - 98.0 FL LAB HEMETOLOGY METHOD 12/09/2024 10:34 AM [facility] MCH 35.5(H) 27.0 - 32.0 pcg LAB HEMETOLOGY METHOD 12/09/2024 10:34 AM [facility] MCHC 33.3 32.0 - 37.0 g/dL LAB HEMETOLOGY METHOD 12/09/2024 10:34 AM [facility] RDW 12.7 11.0 - 15.0 % LAB HEMETOLOGY METHOD 12/09/2024 10:34 AM [facility] Platelets 256 130 - 400 K/mcL LAB HEMETOLOGY METHOD 12/09/2024 10:34 AM [facility] MPV 10.1 7.0 - 11.0 FL LAB HEMETOLOGY METHOD 12/09/2024 10:34 AM [facility] NRBC 0.0 <1.0 % LAB HEMETOLOGY METHOD 12/09/2024 10:34 AM [facility] NRBC Absolute 0.00 <0.10 K/mcL LAB HEMETOLOGY METHOD 12/09/2024 10:34 AM [facility] Neutrophils Relative 70.6 % LAB HEMETOLOGY METHOD 12/09/2024 10:34 AM [facility] Lymphocytes Relative 18.2 % LAB HEMETOLOGY METHOD 12/09/2024 10:34 AM [facility] Monocytes Relative 8.5 % LAB HEMETOLOGY METHOD 12/09/2024 10:34 AM [facility] Eosinophils Relative 1.7 % LAB HEMETOLOGY METHOD 12/09/2024 10:34 AM [facility] Basophils Relative 0.4 % LAB HEMETOLOGY METHOD 12/09/2024 10:34 AM [facility] Immature Granulocytes Relative 0.6 % LAB HEMETOLOGY METHOD 12/09/2024 10:34 AM [facility] Neutrophils Absolute 4.84 1.50 - 7.00 K/mcL LAB HEMETOLOGY METHOD 12/09/2024 10:34 AM [facility] Lymphocytes Absolute 1.25 1.00 - 5.00 K/mcL LAB HEMETOLOGY METHOD 12/09/2024 10:34 AM [facility] Monocytes Absolute 0.58 0.20 - 1.00 K/mcL LAB HEMETOLOGY METHOD 12/09/2024 10:34 AM [facility] Eosinophils Absolute 0.12 0.00 - 0.50 K/mcL LAB HEMETOLOGY METHOD 12/09/2024 10:34 AM [facility] Basophils Absolute 0.03 0.00 - 0.20 K/mcL LAB HEMETOLOGY METHOD 12/09/2024 10:34 AM [facility] Immature Granulocytes Absolute 0.04(H) 0.00 - 0.03 K/mcL LAB HEMETOLOGY METHOD 12/09/2024 10:34 AM [facility] Blood Venous blood specimen / Unknown Venipuncture / Unknown 12/09/2024 6:05 AM EDT 12/09/2024 10:11 AM EDT Jermaine SCHUSTER LAB BLOOD ORDERABLES Final R esult [facility] [address] [place] [address], [place] [phone] * Magnesium (12/09/2024 6:05 AM EDT) Pathologist [facility] Magnesium 2.0 1.9 - 2.6 mg/dL LAB CHEMISTRY METHOD 12/09/2024 11:22 AM EDT [facility] Blood Venous blood specimen / Unknown Venipuncture / Unknown 12/09/2024 6:05 AM EDT 12/09/2024 10:11 AM EDT Jermaine SCHUSTER LAB BLOOD ORDERABLES Final R esult Performing Organization Address City/[facility]/ZIP Co de Phone Number [facility] [address] [place] [address], [place] [phone] * (ABNORMAL) Comprehensive metabolic panel (12/09/2024 6:05 AM EDT) [facility] Sodium 134 133 - 145 mmol/L LAB CHEMISTRY METHOD 12/09/2024 11:25 AM EDT [facility] Potassium 4.2 3.5 - 5.5 mmol/L LAB CHEMISTRY METHOD 12/09/2024 11:25 AM EDT [facility] Chloride 99 96 - 110 mmol/L LAB CHEMISTRY METHOD 12/09/2024 11:25 AM EDT [facility] CO2 26 21 - 32 mmol/L LAB CHEMISTRY METHOD 12/09/2024 11:25 AM EDT [facility] Anion Gap 9 3 - 11 LAB CHEMISTRY METHOD 12/09/2024 11:25 AM EDT [facility] Glucose 88 70 - 100 mg/dL LAB CHEMISTRY METHOD 12/09/2024 11:25 AM [facility] BUN 7 5 - 25 mg/dL LAB CHEMISTRY METHOD 12/09/2024 11:25 AM [facility] Creatinine 0.40(L) 0.50 - 1.10 mg/dL LAB CHEMISTRY METHOD 12/09/2024 11:25 AM [facility] eGFR 97 >=60 mL/min/1. 73m2 LAB CHEMISTRY METHOD 12/09/2024 11:25 AM [facility] Comment:Calculation based on the Chronic Kidney Disease Epidemiology Collaboration (CKD-EPI) equation refit without adjustment for race. BUN/Creatinine Ratio 17.5 LAB CHEMISTRY METHOD 12/09/2024 11:25 AM [facility] Calcium 8.8 8.5 - 10.5 mg/dL LAB CHEMISTRY METHOD 12/09/2024 11:25 AM [facility] AST (SGOT) 27 10 - 42 unit/L LAB CHEMISTRY METHOD 12/09/2024 11:25 AM [facility] ALT (SGPT) 25 10 - 60 unit/L LAB CHEMISTRY METHOD 12/09/2024 11:25 AM [facility] Alkaline Phosphatase 125(H) 42 - 121 unit/L LAB CHEMISTRY METHOD 12/09/2024 11:25 AM [facility] Total Protein 5.9(L) 6.0 - 8.0 g/dL LAB CHEMISTRY METHOD 12/09/2024 11:25 AM [facility] Albumin 2.8(L) 3.2 - 5.0 g/dL LAB CHEMISTRY METHOD 12/09/2024 11:25 AM [facility] Total Bilirubin 1.1 0.0 - 1.4 mg/dL LAB CHEMISTRY METHOD 12/09/2024 11:25 AM [facility] Blood Venous blood specimen / Unknown Venipuncture / Unknown 12/09/2024 6:05 AM EDT 12/09/2024 10:11 AM EDT us Jermaine SCHUSTER LAB BLOOD ORDERABLES Final R esult [facility] ([facility]) [facility] [address] [place] [address], documented in this encounter Visit Diagnoses Diagnosis Encounter for other general examination documented in this encounter Care Teams Drainage Inspector Relationship Specialty Start Date End Date Jermaine Cool PA [address] [phone] PCP - General 12/09/24 documented as of this encounter
--- OUTSIDE RECORDS SUMMARY | 2025-02-14 19:51 | XMS_ITS | Encounter Summary ---
Author Organization [facility] Address [address] [place] [address] Care Team Providers Care Water Tender Name Role Phone Jermaine Cool Primary Care Provider [phone] Encounter Details Date Type Department Care Team (Late st Contact Info) Description 01/18/2025 Lab Requisition [facility] - Main Lab [address] [place] [address] Nidia Sanchez MD [address] [phone] Weakness Social History Tobacco Use Types Packs/Day [...] Associated Diagnosis Comments COMPLETE BLOOD COUNT Routine 01/19/2025 8:31 AM EST Weakness BASIC METABOLIC PANEL Routine 01/19/2025 8:31 AM EST Weakness documented in this encounter Results * Basic metabolic panel (01/19/2025 8:31 AM EST) Sodium 139 133 - 145 mmol/L LAB CHEMISTRY METHOD 01/19/2025 1:27 PM EST [facility] Potassium 3.8 3.5 - 5.5 mmol/L LAB CHEMISTRY METHOD 01/19/2025 1:27 PM EST [facility] Chloride 107 96 - 110 mmol/L LAB CHEMISTRY METHOD 01/19/2025 1:27 PM [facility] CO2 24 21 - 32 mmol/L LAB CHEMISTRY METHOD 01/19/2025 1:27 PM [facility] Anion Gap 8 3 - 11 LAB CHEMISTRY METHOD 01/19/2025 1:27 PM [facility] Glucose 87 70 - 100 mg/dL LAB CHEMISTRY METHOD 01/19/2025 1:27 PM [facility] BUN 12 5 - 25 mg/dL LAB CHEMISTRY METHOD 01/19/2025 1:27 PM [facility] Creatinine 0.69 0.50 - 1.10 mg/dL LAB CHEMISTRY METHOD 01/19/2025 1:27 PM [facility] eGFR 85 >=60 mL/min/1. 73m2 LAB CHEMISTRY METHOD 01/19/2025 1:27 PM [facility] Comment:Calculation based on the Chronic Kidney Disease Epidemiology Collaboration (CKD-EPI) equation refit without adjustment for race. BUN/Creatinine Ratio 17.4 LAB CHEMISTRY METHOD 01/19/2025 1:27 PM [facility] Calcium 8.7 8.5 - 10.5 mg/dL LAB CHEMISTRY METHOD 01/19/2025 1:27 PM [facility] Blood Venous blood specimen / Unknown Venipuncture / Unknown 01/19/2025 8:31 AM EST 01/19/2025 12:05 PM EST us Nidia Sanchez MD LAB BLOOD ORDERABLES Fin al Result [facility] [address] [place] [address], * (ABNORMAL) Complete blood count (01/19/2025 8:31 AM EST) WBC 6.6 4.8 - 10.8 K/mcL LAB HEMETOLOGY METHOD 01/19/2025 12:58 PM [facility] RBC 3.50(L) 3.80 - 4.80 M/mcL LAB HEMETOLOGY METHOD 01/19/2025 12:58 PM [facility] Hemoglobin 12.2 11.5 - 16.0 g/dL LAB HEMETOLOGY METHOD 01/19/2025 12:58 PM [facility] Hematocrit 37.0 35.0 - 47.0 % LAB HEMETOLOGY METHOD 01/19/2025 12:58 PM [facility] MCV 105.1(H) 79.0 - 98.0 FL LAB HEMETOLOGY METHOD 01/19/2025 12:58 PM [facility] MCH 34.7(H) 27.0 - 32.0 pcg LAB HEMETOLOGY METHOD 01/19/2025 12:58 PM [facility] MCHC 33.0 32.0 - 37.0 g/dL LAB HEMETOLOGY METHOD 01/19/2025 12:58 PM [facility] RDW 11.6 11.0 - 15.0 % LAB HEMETOLOGY METHOD 01/19/2025 12:58 PM [facility] Platelets 301 130 - 400 K/mcL LAB HEMETOLOGY METHOD 01/19/2025 12:58 PM [facility] MPV 9.7 7.0 - 11.0 FL LAB HEMETOLOGY METHOD 01/19/2025 12:58 PM [facility] NRBC 0.0 <1.0 % LAB HEMETOLOGY METHOD 01/19/2025 12:58 PM [facility] NRBC Absolute 0.00 <0.10 K/mcL LAB HEMETOLOGY METHOD 01/19/2025 12:58 PM [facility] Blood Venous blood specimen / Unknown Venipuncture / Unknown 01/19/2025 8:31 AM EST 01/19/2025 12:05 PM EST us Nidia Sanchez MD LAB BLOOD ORDERABLES Fin al Result [facility] ([facility] [address] [place] [address], documented in this encounter Visit Diagnoses Diagnosis Weakness Other malaise and fatigue documented in this encounter Care Teams Water Tender Relationship Specialty Start Date End Date Jermaine Cool PA [address] [place] [phone] PCP - General 12/09/24 documented as of this encounter
--- OUTSIDE RECORDS SUMMARY | 2025-02-14 19:51 | XMS_ITS | Encounter Summary ---
Author Organization [facility] Address [address] [place] [phone] Care Team Providers Care Financial Recruiter Name Role Phone Jermaine Cool Primary Care Provider Encounter Details Date Type Department Care Team (Late st Contact Info) Description 12/30/[address] [facility] - Main Lab 299 [facility] [address] [address] Nidia Sanchez MD [address] [phone] Weakness Social History Tobacco Use Types Packs/Day [...] fatigue documented in this encounter Care Teams Financial Recruiter Relationship Specialty Start Date End Date Jermaine Cool PA [address] [phone] PCP - General 12/09/24 documented as of this encounter
--- OUTSIDE RECORDS SUMMARY | 2025-02-14 19:51 | XMS_ITS | Encounter Summary ---
Author Organization [facility] Address [address] [place] [address] Care Team Providers Care Claims Analyst Name Role Phone Jermaine Cool Primary Care Provider [phone] Encounter Details Date Type Department Care Team (Late st Contact Info) Description 12/16/2024 Lab Requisition [facility] - Main Lab 299 [facility] [place] [address] Mandy Garcia MD [address] [place], [place] [phone] Other fci (current) drug therapy Social History Tobacco Use Types Packs/Day Years [...] Procedure Name Priority Date/Time Associated Diagnosis Comments COMPREHENSIVE METABOLIC PANEL Routine 12/16/2024 6:32 AM EDT Other exterminator termite (current) drug therapy documented in this encounter Results * (ABNORMAL) Comprehensive metabolic panel (12/16/2024 6:32 AM EDT) Sodium 137 133 - 145 mmol/L LAB CHEMISTRY METHOD 12/16/2024 11:15 AM EDT [facility] Potassium 4.2 3.5 - 5.5 mmol/L LAB CHEMISTRY METHOD 12/16/2024 11:15 AM EDT [facility] Chloride 103 96 - 110 mmol/L LAB CHEMISTRY METHOD 12/16/2024 11:15 AM T [facility] CO2 26 21 - 32 mmol/L LAB CHEMISTRY METHOD 12/16/2024 11:15 AM [facility] Anion Gap 8 3 - 11 LAB CHEMISTRY METHOD 12/16/2024 11:15 AM [facility] Glucose 89 70 - 100 mg/dL LAB CHEMISTRY METHOD 12/16/2024 11:15 AM [facility] BUN 11 5 - 25 mg/dL LAB CHEMISTRY METHOD 12/16/2024 11:15 AM [facility] Creatinine 0.59 0.50 - 1.10 mg/dL LAB CHEMISTRY METHOD 12/16/2024 11:15 AM [facility] eGFR 88 >=60 mL/min/1. 73m2 LAB CHEMISTRY METHOD 12/16/2024 11:15 AM [facility] Comment:Calculation based on the Chronic Kidney Disease Epidemiology Collaboration (CKD-EPI) equation refit without adjustment for race. BUN/Creatinine Ratio 18.6 LAB CHEMISTRY METHOD 12/16/2024 11:15 AM [facility] Calcium 8.7 8.5 - 10.5 mg/dL LAB CHEMISTRY METHOD 12/16/2024 11:15 AM [facility] AST (SGOT) 28 10 - 42 unit/L LAB CHEMISTRY METHOD 12/16/2024 11:15 AM [facility] ALT (SGPT) 29 10 - 60 unit/L LAB CHEMISTRY METHOD 12/16/2024 11:15 AM [facility] Alkaline Phosphatase 134(H) 42 - 121 unit/L LAB CHEMISTRY METHOD 12/16/2024 11:15 AM [facility] Total Protein 5.8(L) 6.0 - 8.0 g/dL LAB CHEMISTRY METHOD 12/16/2024 11:15 AM [facility] Albumin 2.8(L) 3.2 - 5.0 g/dL LAB CHEMISTRY METHOD 12/16/2024 11:15 AM EDT [facility] Total Bilirubin 0.5 0.0 - 1.4 mg/dL LAB CHEMISTRY METHOD 12/16/2024 11:15 AM EDT [facility] Blood Venous blood specimen / Unknown Venipuncture / Unknown 12/16/2024 6:32 AM EDT 12/16/2024 10:30 AM EDT us Mandy Garcia MD LAB BLOOD ORDERABLES Final Resu lt [facility] [address] [place] [address], documented in this encounter Visit Diagnoses Diagnosis Other exterminator termite (current) drug therapy documented in this encounter Care Teams Claims Analyst Relationship Specialty Start Date End Date Jermaine Cool PA [address] [place] [phone] PCP - General 12/09/24 documented as of this encounter
--- OUTSIDE RECORDS SUMMARY | 2025-02-14 19:51 | XMS_ITS | Encounter Summary ---
Author Organization [facility] Address [address] [place] [address] Care Team Providers Care Footwear Production Machine Operator Name Role Phone Jermaine Cool Primary Care Provider [phone] Encounter Details Date Type Department Care Team (Late st Contact Info) Description 12/22/2024 Lab Requisition [facility] - Main Lab 299 [facility] [place] [address] Mandy Garcia MD [address] [place], [place] [phone] Other care home (current) drug therapy Social History Tobacco Use [...] Associated Diagnosis Comments BASIC METABOLIC PANEL Routine 12/22/2024 6:55 AM EDT Other care home (current) drug therapy documented in this encounter Results * Basic metabolic panel (12/22/2024 6:55 AM EDT) Sodium 139 133 - 145 mmol/L LAB CHEMISTRY METHOD 12/22/2024 12:34 PM EDT [facility] Potassium 4.3 3.5 - 5.5 mmol/L LAB CHEMISTRY METHOD 12/22/2024 12:34 PM EDT [facility] Chloride 105 96 - 110 mmol/L LAB CHEMISTRY METHOD 12/22/2024 12:34 PM T [facility] CO2 25 21 - 32 mmol/L LAB CHEMISTRY METHOD 12/22/2024 12:34 PM EDT [facility] Anion Gap 9 3 - 11 LAB CHEMISTRY METHOD 12/22/2024 12:34 PM EDT [facility] Glucose 84 70 - 100 mg/dL LAB CHEMISTRY METHOD 12/22/2024 12:34 PM [facility] BUN 10 5 - 25 mg/dL LAB CHEMISTRY METHOD 12/22/2024 12:34 PM [facility] Creatinine 0.58 0.50 - 1.10 mg/dL LAB CHEMISTRY METHOD 12/22/2024 12:34 PM [facility] eGFR 88 >=60 mL/min/1. 73m2 LAB CHEMISTRY METHOD 12/22/2024 12:34 PM [facility] Comment:Calculation based on the Chronic Kidney Disease Epidemiology Collaboration (CKD-EPI) equation refit without adjustment for race. BUN/Creatinine Ratio 17.2 LAB CHEMISTRY METHOD 12/22/2024 12:34 PM [facility] Calcium 8.9 8.5 - 10.5 mg/dL LAB CHEMISTRY METHOD 12/22/2024 12:34 PM [facility] Blood Venous blood specimen / Unknown Venipuncture / Unknown 12/22/2024 6:55 AM EDT 12/22/2024 10:55 AM EDT us Mandy Garcia MD LAB BLOOD ORDERABLES Final Resu lt [facility] [address] [place] [address], documented in this encounter Visit Diagnoses Diagnosis Other termination clerk (current) drug therapy documented in this encounter Care Teams Footwear Production Machine Operator Relationship Specialty Start Date End Date Jermaine Cool PA [address] [address] PCP - General 12/09/24 documented as of this encounter
--- OUTSIDE RECORDS SUMMARY | 2025-02-14 19:51 | XMS_ITS | Encounter Summary ---
Author Organization [facility] Address [address] [place] [address] Care Team Providers Care Team Assembly Line Machine Operator Name Role Phone Jermaine Cool Primary Care Provider Encounter Details Date Type Department Care Team (Late st Contact Info) Description 01/14/2025 Lab Requisition [facility] - Main Lab 299 [facility] [place] [address] Nidia Sanchez MD [address] [phone] Weakness Social History Tobacco Use Types Packs/Day [...] Associated Diagnosis Comments COMPLETE BLOOD COUNT Routine 01/16/2025 9:46 AM EST Weakness BASIC METABOLIC PANEL Routine 01/16/2025 9:46 AM EST Weakness documented in this encounter Results * (ABNORMAL) Basic metabolic panel (01/16/2025 9:46 AM EST) Sodium 138 133 - 145 mmol/L LAB CHEMISTRY METHOD 01/16/2025 12:45 PM EST [facility] Potassium 4.0 3.5 - 5.5 mmol/L LAB CHEMISTRY METHOD 01/16/2025 12:45 PM EST [facility] Chloride 104 96 - 110 mmol/L LAB CHEMISTRY METHOD 01/16/2025 12:45 PM [facility] CO2 26 21 - 32 mmol/L LAB CHEMISTRY METHOD 01/16/2025 12:45 PM [facility] Anion Gap 8 3 - 11 LAB CHEMISTRY METHOD 01/16/2025 12:45 PM [facility] Glucose 116(H) 70 - 100 mg/dL LAB CHEMISTRY METHOD 01/16/2025 12:45 PM [facility] BUN 11 5 - 25 mg/dL LAB CHEMISTRY METHOD 01/16/2025 12:45 PM [facility] Creatinine 0.69 0.50 - 1.10 mg/dL LAB CHEMISTRY METHOD 01/16/2025 12:45 PM [facility] eGFR 85 >=60 mL/min/1. 73m2 LAB CHEMISTRY METHOD 01/16/2025 12:45 PM [facility] Comment:Calculation based on the Chronic Kidney Disease Epidemiology Collaboration (CKD-EPI) equation refit without adjustment for race. BUN/Creatinine Ratio 15.9 LAB CHEMISTRY METHOD 01/16/2025 12:45 PM [facility] Calcium 9.2 8.5 - 10.5 mg/dL LAB CHEMISTRY METHOD 01/16/2025 12:45 PM [facility] Blood Venous blood specimen / Unknown Venipuncture / Unknown 01/16/2025 9:46 AM EST 01/16/2025 11:18 AM EST us Nidia Sanchez MD LAB BLOOD ORDERABLES Fin al Result [facility] [address] [place] [address], * (ABNORMAL) Complete blood count (01/16/2025 9:46 AM EST) WBC 6.7 4.8 - 10.8 K/mcL LAB HEMETOLOGY METHOD 01/16/2025 12:31 PM [facility] RBC 4.10 3.80 - 4.80 M/mcL LAB HEMETOLOGY METHOD 01/16/2025 12:31 PM [facility] Hemoglobin 14.2 11.5 - 16.0 g/dL LAB HEMETOLOGY METHOD 01/16/2025 12:31 PM [facility] Hematocrit 42.4 35.0 - 47.0 % LAB HEMETOLOGY METHOD 01/16/2025 12:31 PM [facility] MCV 103.9(H) 79.0 - 98.0 FL LAB HEMETOLOGY METHOD 01/16/2025 12:31 PM [facility] MCH 34.8(H) 27.0 - 32.0 pcg LAB HEMETOLOGY METHOD 01/16/2025 12:31 PM [facility] MCHC 33.5 32.0 - 37.0 g/dL LAB HEMETOLOGY METHOD 01/16/2025 12:31 PM [facility] RDW 11.5 11.0 - 15.0 % LAB HEMETOLOGY METHOD 01/16/2025 12:31 PM [facility] Platelets 334 130 - 400 K/mcL LAB HEMETOLOGY METHOD 01/16/2025 12:31 PM [facility] MPV 9.9 7.0 - 11.0 FL LAB HEMETOLOGY METHOD 01/16/2025 12:31 PM [facility] NRBC 0.0 <1.0 % LAB HEMETOLOGY METHOD 01/16/2025 12:31 PM [facility] NRBC Absolute 0.00 <0.10 K/mcL LAB HEMETOLOGY METHOD 01/16/2025 12:31 PM [facility] Blood Venous blood specimen / Unknown Venipuncture / Unknown 01/16/2025 9:46 AM EST 01/16/2025 11:18 AM EST us Nidia Sanchez MD LAB BLOOD ORDERABLES Fin al Result [facility] ([facility]) [facility] [address] [place] [address], documented in this encounter Visit Diagnoses Diagnosis Weakness Other malaise and fatigue documented in this encounter Care Teams Team Assembly Line Machine Operator Relationship Specialty Start Date End Date Jermaine Cool PA [address] [place] [phone] PCP - General 12/09/24 documented as of this encounter
--- OUTSIDE RECORDS SUMMARY | 2025-02-14 19:51 | XMS_ITS | Encounter Summary ---
Author Organization [facility] Address [address] [place] [address] Care Team Providers Care Fur Mixer Operator Name Role Phone Jermaine Cool Primary Care Provider Encounter Details Date Type Department Care Team (Late st Contact Info) Description 12/26/[address] [facility] - Main Lab 299 [facility] [place] [address] Nidia Sanchez MD [address] [facility] 1 [place] [address] Weakness Social History Tobacco Use Types Packs/Day [...] Procedure Name Priority Date/Time Associated Diagnosis Comments THYROID STIMULATING HORMONE WITH REFLEX TO FREE T4 AND FREE T3 Routine 12/26/2024 8:07 AM EDT Weakness COMPLETE BLOOD COUNT Routine 12/26/2024 8:07 AM EDT Weakness FOLATE Routine 12/26/2024 8:07 AM EDT Weakness VITAMIN B12 Routine 12/26/2024 8:07 AM EDT Weakness COMPREHENSIVE METABOLIC PANEL Routine 12/26/2024 8:07 AM EDT Weakness documented in this encounter Results * (ABNORMAL) Folate (12/26/2024 8:07 AM EDT) Folate >20.0(H) 2.8 - 17.0 ng/ml LAB CHEMISTRY METHOD 12/26/2024 12:01 PM EDT [facility] Blood Venous blood specimen / Unknown Venipuncture / Unknown 12/26/2024 8:07 AM EDT 12/26/2024 10:15 AM EDT Nidia Sanchez MD LAB BLOOD ORDERABLES Fin al Result Performing Organization Address City/[facility]/ZIP Co de Phone Number [facility] [address] [place] [address], [place] [phone] * Vitamin B12 (12/26/2024 8:07 AM EDT) [facility] Vitamin B-12 504 250 - 900 pcg/mL LAB CHEMISTRY METHOD 12/26/2024 12:01 PM EDT [facility] Blood Venous blood specimen / Unknown Venipuncture / Unknown 12/26/2024 8:07 AM EDT 12/26/2024 10:15 AM EDT Nidia Sanchez MD LAB BLOOD ORDERABLES Fin al Result Performing Organization Address [facility]/ZIP Co de Phone Number [facility] [address] [place] [address], [place] [phone] * Thyroid stimulating hormone with reflex to free t4 and free t3 (12/26/2024 8:07 AM EDT) [facility] TSH 2.82 0.40 - 4.00 mcIU/mL LAB CHEMISTRY METHOD 12/26/2024 8:56 PM EDT [facility] Blood Venous blood specimen / Unknown Venipuncture / Unknown 12/26/2024 8:07 AM EDT 12/26/2024 10:15 AM EDT Nidia Sanchez MD LAB BLOOD ORDERABLES Fin al Result [facility] [address] [place] [address], * (ABNORMAL) Comprehensive metabolic panel (12/26/2024 8:07 AM EDT) Sodium 140 133 - 145 mmol/L LAB CHEMISTRY METHOD 12/26/2024 12:01 PM [facility] Potassium 4.1 3.5 - 5.5 mmol/L LAB CHEMISTRY METHOD 12/26/2024 12:01 PM [facility] Chloride 106 96 - 110 mmol/L LAB CHEMISTRY METHOD 12/26/2024 12:01 PM [facility] CO2 26 21 - 32 mmol/L LAB CHEMISTRY METHOD 12/26/2024 12:01 PM [facility] Anion Gap 8 3 - 11 LAB CHEMISTRY METHOD 12/26/2024 12:01 PM [facility] Glucose 77 70 - 100 mg/dL LAB CHEMISTRY METHOD 12/26/2024 12:01 PM [facility] BUN 9 5 - 25 mg/dL LAB CHEMISTRY METHOD 12/26/2024 12:01 PM [facility] Creatinine 0.62 0.50 - 1.10 mg/dL LAB CHEMISTRY METHOD 12/26/2024 12:01 PM [facility] eGFR 87 >=60 mL/min/1. 73m2 LAB CHEMISTRY METHOD 12/26/2024 12:01 PM [facility] Comment:Calculation based on the Chronic Kidney Disease Epidemiology Collaboration (CKD-EPI) equation refit without adjustment for race. BUN/Creatinine Ratio 14.5 LAB CHEMISTRY METHOD 12/26/2024 12:01 PM [facility] Calcium 9.1 8.5 - 10.5 mg/dL LAB CHEMISTRY METHOD 12/26/2024 12:01 PM [facility] AST (SGOT) 21 10 - 42 unit/L LAB CHEMISTRY METHOD 12/26/2024 12:01 PM EDT [facility] ALT (SGPT) 23 10 - 60 unit/L LAB CHEMISTRY METHOD 12/26/2024 12:01 PM [facility] Alkaline Phosphatase 144(H) 42 - 121 unit/L LAB CHEMISTRY METHOD 12/26/2024 12:01 PM T [facility] Total Protein 6.0 6.0 - 8.0 g/dL LAB CHEMISTRY METHOD 12/26/2024 12:01 PM [facility] Albumin 3.1(L) 3.2 - 5.0 g/dL LAB CHEMISTRY METHOD 12/26/2024 12:01 PM [facility] Total Bilirubin 0.7 0.0 - 1.4 mg/dL LAB CHEMISTRY METHOD 12/26/2024 12:01 PM [facility] Blood Venous blood specimen / Unknown Venipuncture / Unknown 12/26/2024 8:07 AM EDT 12/26/2024 10:15 AM EDT us Nidia Sanchez MD LAB BLOOD ORDERABLES Fin al Result [facility] [address] [place] [address], * (ABNORMAL) Complete blood count (12/26/2024 8:07 AM EDT) WBC 5.7 4.8 - 10.8 K/[facility] LAB HEMETOLOGY METHOD 12/26/2024 10:50 AM EDT [facility] RBC 3.20(L) 3.80 - 4.80 M/[facility] LAB HEMETOLOGY METHOD 12/26/2024 10:50 AM EDT [facility] Hemoglobin 11.2(L) 11.5 - 16.0 g/dL LAB HEMETOLOGY METHOD 12/26/2024 10:50 AM EDT [facility] Hematocrit 34.3(L) 35.0 - 47.0 % LAB HEMETOLOGY METHOD 12/26/2024 10:50 AM EDT [facility] MCV 106.5(H) 79.0 - 98.0 FL LAB HEMETOLOGY METHOD 12/26/2024 10:50 AM EDT [facility] MCH 34.8(H) 27.0 - 32.0 pcg LAB HEMETOLOGY METHOD 12/26/2024 10:50 AM EDT [facility] MCHC 32.7 32.0 - 37.0 g/dL LAB HEMETOLOGY METHOD 12/26/2024 10:50 AM EDT [facility] RDW 12.6 11.0 - 15.0 % LAB HEMETOLOGY METHOD 12/26/2024 10:50 AM EDT [facility] Platelets 346 130 - 400 K/mcL LAB HEMETOLOGY METHOD 12/26/2024 10:50 AM EDT [facility] MPV 9.6 7.0 - 11.0 FL LAB HEMETOLOGY METHOD 12/26/2024 10:50 AM EDT [facility] NRBC 0.0 <1.0 % LAB HEMETOLOGY METHOD 12/26/2024 10:50 AM EDT [facility] NRBC Absolute 0.00 <0.10 K/mcL LAB HEMETOLOGY METHOD 12/26/2024 10:50 AM EDT [facility] Blood Venous blood specimen / Unknown Venipuncture / Unknown 12/26/2024 8:07 AM EDT 12/26/2024 10:15 AM EDT us Nidia Sanchez MD LAB BLOOD ORDERABLES Fin al Result [facility] [address] [place] [address], [place] [phone] documented in this encounter Visit Diagnoses Diagnosis Weakness Other malaise and fatigue documented in this encounter Care Teams Fur Mixer Operator Relationship Specialty Start Date End Date Jermaine Cool PA [address] [address] PCP - General 12/09/24 documented as of this encounter
--- OUTSIDE RECORDS SUMMARY | 2025-02-14 19:51 | XMS_ITS | Encounter Summary ---
Author Organization [facility] Address [address] [place] [address] Care Team Providers Care Chef De Cuisine Name Role Phone Jermaine Cool Primary Care Provider [phone] Encounter Details Date Type Department Care Team (Late st Contact Info) Description 01/02/2025 Lab Requisition [facility] - Main Lab [address] [place] [address] Nidia Sanchez MD [address] [phone] Weakness Social History Tobacco Use Types Packs/Day [...] Associated Diagnosis Comments COMPLETE BLOOD COUNT Routine 01/02/2025 8:41 AM EDT Weakness BASIC METABOLIC PANEL Routine 01/02/2025 8:41 AM EDT Weakness documented in this encounter Results * Basic metabolic panel (01/02/2025 8:41 AM EDT) Sodium 138 133 - 145 mmol/L LAB CHEMISTRY METHOD 01/02/2025 2:03 PM EDT [facility] Potassium 4.1 3.5 - 5.5 mmol/L LAB CHEMISTRY METHOD 01/02/2025 2:03 PM EDT [facility] Chloride 105 96 - 110 mmol/L LAB CHEMISTRY METHOD 01/02/2025 2:03 PM EDT [facility] CO2 25 21 - 32 mmol/L LAB CHEMISTRY METHOD 01/02/2025 2:03 PM [facility] Anion Gap 8 3 - 11 LAB CHEMISTRY METHOD 01/02/2025 2:03 PM [facility] Glucose 78 70 - 100 mg/dL LAB CHEMISTRY METHOD 01/02/2025 2:03 PM [facility] BUN 12 5 - 25 mg/dL LAB CHEMISTRY METHOD 01/02/2025 2:03 PM [facility] Creatinine 0.70 0.50 - 1.10 mg/dL LAB CHEMISTRY METHOD 01/02/2025 2:03 PM [facility] eGFR 84 >=60 mL/min/1. 73m2 LAB CHEMISTRY METHOD 01/02/2025 2:03 PM [facility] Comment:Calculation based on the Chronic Kidney Disease Epidemiology Collaboration (CKD-EPI) equation refit without adjustment for race. BUN/Creatinine Ratio 17.1 LAB CHEMISTRY METHOD 01/02/2025 2:03 PM [facility] Calcium 8.9 8.5 - 10.5 mg/dL LAB CHEMISTRY METHOD 01/02/2025 2:03 PM [facility] Blood Venous blood specimen / Unknown Venipuncture / Unknown 01/02/2025 8:41 AM EDT 01/02/2025 10:24 AM EDT us Nidia Sanchez MD LAB BLOOD ORDERABLES Fin al Result [facility] [address] [place] [address], * (ABNORMAL) Complete blood count (01/02/2025 8:41 AM EDT) WBC 5.4 4.8 - 10.8 K/mcL LAB HEMETOLOGY METHOD 01/02/2025 11:29 AM [facility] RBC 3.30(L) 3.80 - 4.80 M/mcL LAB HEMETOLOGY METHOD 01/02/2025 11:29 AM [facility] Hemoglobin 11.7 11.5 - 16.0 g/dL LAB HEMETOLOGY METHOD 01/02/2025 11:29 AM [facility] Hematocrit 34.9(L) 35.0 - 47.0 % LAB HEMETOLOGY METHOD 01/02/2025 11:29 AM [facility] MCV 105.8(H) 79.0 - 98.0 FL LAB HEMETOLOGY METHOD 01/02/2025 11:29 AM [facility] MCH 35.5(H) 27.0 - 32.0 pcg LAB HEMETOLOGY METHOD 01/02/2025 11:29 AM [facility] MCHC 33.5 32.0 - 37.0 g/dL LAB HEMETOLOGY METHOD 01/02/2025 11:29 AM [facility] RDW 12.1 11.0 - 15.0 % LAB HEMETOLOGY METHOD 01/02/2025 11:29 AM [facility] Platelets 290 130 - 400 K/mcL LAB HEMETOLOGY METHOD 01/02/2025 11:29 AM [facility] MPV 9.8 7.0 - 11.0 FL LAB HEMETOLOGY METHOD 01/02/2025 11:29 AM [facility] NRBC 0.0 <1.0 % LAB HEMETOLOGY METHOD 01/02/2025 11:29 AM [facility] NRBC Absolute 0.00 <0.10 K/mcL LAB HEMETOLOGY METHOD 01/02/2025 11:29 AM [facility] Blood Venous blood specimen / Unknown Venipuncture / Unknown 01/02/2025 8:41 AM EDT 01/02/2025 10:23 AM EDT us Nidia Sanchez MD LAB BLOOD ORDERABLES Fin al Result [facility] ([facility]) [facility] [address] [place] [address], documented in this encounter Visit Diagnoses Diagnosis Weakness Other malaise and fatigue documented in this encounter Care Teams Chef De Cuisine Relationship Specialty Start Date End Date Jermaine Cool PA [address] [phone] PCP - General 12/09/24 documented as of this encounter
--- OUTSIDE RECORDS SUMMARY | 2025-02-14 19:52 | XMS_ITS | Encounter Summary ---
Author Organization [facility] Address [address] [place] [address] Care Team Providers Care Soybean Specialties Cook Name Role Phone Jermaine Cool Primary Care Provider Encounter Details Date Type Department Care Team (Late st Contact Info) Description 01/04/2025 Lab Requisition [facility] - Main Lab [address] [place] [address] Nidia Sanchez MD [address] [phone] Weakness Social History Tobacco Use Types Packs/Day [...] Associated Diagnosis Comments COMPLETE BLOOD COUNT Routine 01/05/2025 8:29 AM EDT Weakness BASIC METABOLIC PANEL Routine 01/05/2025 8:29 AM EDT Weakness documented in this encounter Results * Basic metabolic panel (01/05/2025 8:29 AM EDT) Sodium 137 133 - 145 mmol/L LAB CHEMISTRY METHOD 01/05/2025 12:05 PM EDT [facility] Potassium 4.1 3.5 - 5.5 mmol/L LAB CHEMISTRY METHOD 01/05/2025 12:05 PM EDT [facility] Chloride 105 96 - 110 mmol/L LAB CHEMISTRY METHOD 01/05/2025 12:05 PM [facility] CO2 24 21 - 32 mmol/L LAB CHEMISTRY METHOD 01/05/2025 12:05 PM [facility] Anion Gap 8 3 - 11 LAB CHEMISTRY METHOD 01/05/2025 12:05 PM [facility] Glucose 89 70 - 100 mg/dL LAB CHEMISTRY METHOD 01/05/2025 12:05 PM [facility] BUN 9 5 - 25 mg/dL LAB CHEMISTRY METHOD 01/05/2025 12:05 PM [facility] Creatinine 0.66 0.50 - 1.10 mg/dL LAB CHEMISTRY METHOD 01/05/2025 12:05 PM [facility] eGFR 86 >=60 mL/min/1. 73m2 LAB CHEMISTRY METHOD 01/05/2025 12:05 PM [facility] Comment:Calculation based on the Chronic Kidney Disease Epidemiology Collaboration (CKD-EPI) equation refit without adjustment for race. BUN/Creatinine Ratio 13.6 LAB CHEMISTRY METHOD 01/05/2025 12:05 PM [facility] Calcium 8.7 8.5 - 10.5 mg/dL LAB CHEMISTRY METHOD 01/05/2025 12:05 PM [facility] Blood Venous blood specimen / Unknown Venipuncture / Unknown 01/05/2025 8:29 AM EDT 01/05/2025 10:37 AM EDT us Nidia Sanchez MD LAB BLOOD ORDERABLES Fin al Result [facility] [address] [place] [address], * (ABNORMAL) Complete blood count (01/05/2025 8:29 AM EDT) WBC 5.9 4.8 - 10.8 K/mcL LAB HEMETOLOGY METHOD 01/05/2025 11:19 AM [facility] RBC 3.30(L) 3.80 - 4.80 M/mcL LAB HEMETOLOGY METHOD 01/05/2025 11:19 AM [facility] Hemoglobin 11.3(L) 11.5 - 16.0 g/dL LAB HEMETOLOGY METHOD 01/05/2025 11:19 AM [facility] Hematocrit 34.3(L) 35.0 - 47.0 % LAB HEMETOLOGY METHOD 01/05/2025 11:19 AM [facility] MCV 103.9(H) 79.0 - 98.0 FL LAB HEMETOLOGY METHOD 01/05/2025 11:19 AM [facility] MCH 34.2(H) 27.0 - 32.0 pcg LAB HEMETOLOGY METHOD 01/05/2025 11:19 AM [facility] MCHC 32.9 32.0 - 37.0 g/dL LAB HEMETOLOGY METHOD 01/05/2025 11:19 AM [facility] RDW 11.9 11.0 - 15.0 % LAB HEMETOLOGY METHOD 01/05/2025 11:19 AM [facility] Platelets 292 130 - 400 K/mcL LAB HEMETOLOGY METHOD 01/05/2025 11:19 AM [facility] MPV 10.1 7.0 - 11.0 FL LAB HEMETOLOGY METHOD 01/05/2025 11:19 AM [facility] NRBC 0.0 <1.0 % LAB HEMETOLOGY METHOD 01/05/2025 11:19 AM [facility] NRBC Absolute 0.00 <0.10 K/mcL LAB HEMETOLOGY METHOD 01/05/2025 11:19 AM [facility] Blood Venous blood specimen / Unknown Venipuncture / Unknown 01/05/2025 8:29 AM EDT 01/05/2025 10:37 AM EDT us Nidia Sanchez MD LAB BLOOD ORDERABLES Fin al Result [facility] ([facility]) [facility] [address] [place] [address], documented in this encounter Visit Diagnoses Diagnosis Weakness Other malaise and fatigue documented in this encounter Care Teams [employer] Specialties Cook Relationship Specialty Start Date End Date Jermaine Cool PA [address] [place] [phone] PCP - General 12/09/24 documented as of this encounter
--- OUTSIDE RECORDS SUMMARY | 2025-04-03 19:00 | XMS_ITS | Clinical Summary ---
Author Organization Unknown Care Team Providers Care Crematory Operator Name Role Phone DANAE NAYAK, UMANG Unavailable Unavailable ARGELIA RN, ALLEGRA Unavailable Unavailable JUVENCIO BRASWELLN, RANDI Unavailable Unavail able XIOMY PT, BERT Unavailable Unavailable RJ GAS MAKER, UMESH Unavailable Unavailable LENGIEZA OT, SAMUEL Unavailable Unavailable Payers Payer Name Policy Type Policy Number Effective Date Expira tion Date MEDICARE.[facility].PDGM [id number] Problems Condition Name Condition Details Condition Category Status Onset Date Resolution Date Last Treatment Date Treating Clinician Comments AGE-REL OSTEOPOR W CRNT PATH FX, L FEMR, 7THD Active 2024-03 00:00: 00 UNSPECIFIED OPEN WOUND, LEFT FOOT, SUBSEQUENT ENCOUNTER Active 2024-03 00:00: 00 HYPERLIPIDEM IA, UNSPECIFIED Active 2024-03 00:00: 00 HYPO-OSMOLAL ITY AND HYPONATREMIA Active 2024-03 00:00: 00 HYPERTENSIVE HEART DISEASE WITHOUT HEART FAILURE Active 2024-03 00:00: 00 NONRHEUMATIC AORTIC (VALVE) STENOSIS Active 2024-03 00:00: 00 UNSPECIFIED PROTEIN-SIDNEY PASCALE MALNUTRITION Active 2024-03 00:00: 00 OTHER CHRONIC PAIN Active 2024-03 00:00: 00 MAJOR DEPRESSIVE DISORDER, RECURRENT, IN REMISSION, UNSP Active 2024-03 00:00: 00 PERSONAL HISTORY OF URINARY (TRACT) INFECTIONS Active 2024-03 00:00: 00 HISTORY OF FALLING Active 2024-03 00:00: 00 HYPERTENSIVE HEART DISEASE WITH HEART FAILURE Active 2024-03 00:00: 00 Allergies, Adverse Reactions, Alerts Allergy Name Allergy Type Status Severity Reaction(s) Onset Date Inactive Date Treating Clinician Comments AUGMENTIN Propensity to adverse reactions Active 2024-03 12:21: 58 Vital Signs Vital Name Observation Time Observation Value Commen ts Temperature 2025-02-13 11:07:00.000 97.9 [degF] Temperature 2025-02-04 12:29:00.000 97.6 [degF] BMI (%) 2025-02-04 12:29:00.000 34 kg/m2 Height 2025-02-04 12:29:00.000 59 [in_us] Pulse 2025-02-13 11:07:00.000 67 /min Pulse 2025-02-04 12:29:00.000 68 /min O2 Saturation (%) 2025-02-13 11:08:00.000 96 % Respirations 2025-02-13 11:07:00.000 18 /min Respirations 2025-02-04 12:29:00.000 18 /min Weight (lbs) 2025-02-04 12:29:00.000 170 [lb_av] Systolic Blood Pressure 2025-02-13 11:07:00.000 124 mm [Hg] Systolic Blood Pressure 2025-02-04 12:29:00.000 128 mm [Hg] Diastolic Blood Pressure 2025-02-13 11:07:00.000 66 mm [Hg] Diastolic Blood Pressure 2025-02-04 12:29:00.000 68 mm [Hg] Plan of Treatment Planned Activity Planned Date Details Comments Future Scheduled Test RN TO OBSE RVE, ASSESS, EVALUATE, AND DEVELOP AN INDIVIDUALIZED PLAN OF CARE. AGENCY MAY ACCEPT ORDERS FROM CONSULTING PHYSICIANS RN TO OBSERVE AND ASSESS, SAMPLE MAKER HAND/FLOOR BROKER TO OBSERVE FOR RISK FOR FALLS AND INSTRUCT IN FALL PREVENTION, HOME SAFETY, MEDICATION MANAGEMENT, INFECTION PREVENTION, AND NUTRITION MANAGEMENT. RN/SAMPLE MAKER HAND/FLOOR BROKER NURSE MAY PERFORM O2 SATURATION LEVEL ON ADMISSION AND PRN FOR RESP STATUS CHANGES FOR RN TO ASSESS/SAMPLE MAKER HAND TO OBSERVE PATIENT, WITH NOTIFICATION TO THE PHYSICIAN IF SATURATION IS 90% IN THE ABSENCE OF MORE SPECIFIC PARAMETERS FROM THE PHYSICIAN. AGENCY MAY PERFORM A RESUMPTION OF CARE VISIT FOLLOWING ANY HOSPITAL ADMISSION. RN/SAMPLE MAKER HAND/FLOOR BROKER TO MONITOR CO-MORBID CONDITIONS LISTED ON THE PLAN OF CARE AND ANY NEW CONDITIONS THAT PRESENT THEMSELVES DURING THIS EPISODE TO IDENTIFY CHANGES AND INTERVENE TO MINIMIZE COMPLICATIONS. [code = RN TO OBSERVE, ASSESS, EVALUATE, AND DEVELOP AN INDIVIDUALIZED PLAN OF CARE. AGENCY MAY ACCEPT ORDERS FROM CONSULTING PHYSICIANS RN TO OBSERVE AND ASSESS, SAMPLE MAKER HAND/FLOOR BROKER TO OBSERVE FOR RISK FOR FALLS AND INSTRUCT IN FALL PREVENTION, HOME SAFETY, MEDICATION MANAGEMENT, INFECTION PREVENTION, AND NUTRITION MANAGEMENT. RN/SAMPLE MAKER HAND/FLOOR BROKER NURSE MAY PERFORM O2 SATURATION LEVEL ON ADMISSION AND PRN FOR RESP STATUS CHANGES FOR RN TO ASSESS/SAMPLE MAKER HAND TO OBSERVE PATIENT, WITH NOTIFICATION TO THE PHYSICIAN IF SATURATION IS 90% IN THE ABSENCE OF MORE SPECIFIC PARAMETERS FROM THE PHYSICIAN. AGENCY MAY PERFORM A RESUMPTION OF CARE VISIT FOLLOWING ANY HOSPITAL ADMISSION. RN/SAMPLE MAKER HAND/FLOOR BROKER TO MONITOR CO-MORBID CONDITIONS LISTED ON THE PLAN OF CARE AND ANY NEW CONDITIONS THAT PRESENT THEMSELVES DURING THIS EPISODE TO IDENTIFY CHANGES AND INTERVENE TO MINIMIZE COMPLICATIONS.] Future Scheduled Test RISK FOR H OSPITALIZATION; RN TO ASSESS/TEACH, FLOOR BROKER/SAMPLE MAKER HAND TO OBSERVE/TEACH PATIENT/CAREGIVER ON RISK FOR HOSPITALIZATION/EMERGENCY ROOM VISITS, TEACH SIGNS AND SYMPTOMS THAT PUT PATIENT AT RISK, WHEN TO NOTIFY NURSE/PHYSICIAN OF COMPLICATIONS/DECLINE, AND WHEN TO CALL 911. [code = RISK FOR HOSPITALIZATION; RN TO ASSESS/TEACH, FLOOR BROKER/SAMPLE MAKER HAND TO OBSERVE/TEACH PATIENT/CAREGIVER ON RISK FOR HOSPITALIZATION/EMERGENCY ROOM VISITS, TEACH SIGNS AND SYMPTOMS THAT PUT PATIENT AT RISK, WHEN TO NOTIFY NURSE/PHYSICIAN OF COMPLICATIONS/DECLINE, AND WHEN TO CALL 911.] Future Scheduled Test MEDICATION MANAGEMENT; RN/SAMPLE MAKER HAND/FLOOR BROKER TO REVIEW MEDICATIONS FOR INTERACTIONS, EFFECTIVENESS OF DRUG THERAPY, AND SIGNS/SYMPTOMS OF ADVERSE REACTIONS. MAY INSTRUCT AND REINFORCE MEDICATION TEACHING RELATED TO THE USE OF MEDICATIONS, DOSAGE, FREQUENCY, PURPOSE, SIDE EFFECTS, AND TO REPORT COMPLICATIONS. [code = MEDICATION MANAGEMENT; RN/SAMPLE MAKER HAND/FLOOR BROKER TO REVIEW MEDICATIONS FOR INTERACTIONS, EFFECTIVENESS OF DRUG THERAPY, AND SIGNS/SYMPTOMS OF ADVERSE REACTIONS. MAY INSTRUCT AND REINFORCE MEDICATION TEACHING RELATED TO THE USE OF MEDICATIONS, DOSAGE, FREQUENCY, PURPOSE, SIDE EFFECTS, AND TO REPORT COMPLICATIONS.] Future Scheduled Test CARDIOVASC ULAR SYSTEM; RN TO ASSESS/TEACH, SAMPLE MAKER HAND/FLOOR BROKER TO OBSERVE/TEACH RELATED TO ALTERED CARDIOVASCULAR STATUS TO MINIMIZE COMPLICATIONS AND REDUCE HOSPITALIZATION. [code = CARDIOVASCULAR SYSTEM; RN TO ASSESS/TEACH, SAMPLE MAKER HAND/FLOOR BROKER TO OBSERVE/TEACH RELATED TO ALTERED CARDIOVASCULAR STATUS TO MINIMIZE COMPLICATIONS AND REDUCE HOSPITALIZATION.] Future Scheduled Test RN TO ASSE SS, OBSERVE, AND EDUCATE; SAMPLE MAKER HAND/FLOOR BROKER TO OBSERVE AND REINFORCE EDUCATION ON ELECTROLYTE IMBALANCES INCLUDING STRATEGIES TO MINIMIZE THE RISK OF HOSPITALIZATION. [code = RN TO ASSESS, OBSERVE, AND EDUCATE; SAMPLE MAKER HAND/FLOOR BROKER TO OBSERVE AND REINFORCE EDUCATION ON ELECTROLYTE IMBALANCES INCLUDING STRATEGIES TO MINIMIZE THE RISK OF HOSPITALIZATION.] Future Scheduled Test RN TO ASSE SS/TEACH, SAMPLE MAKER HAND,FLOOR BROKER TO OBSERVE AND TEACH MEASURES FOR SELF-MANAGEMENT POST A SURGICAL HIP REPLACEMENT OR FEMUR FRACTURE TO MINIMIZE COMPLICATIONS AND REDUCE RISK OF HOSPITALIZATION. [code = RN TO ASSESS/TEACH, SAMPLE MAKER HAND,FLOOR BROKER TO OBSERVE AND TEACH MEASURES FOR SELF-MANAGEMENT POST A SURGICAL HIP REPLACEMENT OR FEMUR FRACTURE TO MINIMIZE COMPLICATIONS AND REDUCE RISK OF HOSPITALIZATION.] Future Scheduled Test PAIN MANAG EMENT; RN TO ASSESS AND TEACH, FLOOR BROKER/SAMPLE MAKER HAND TO OBSERVE AND TEACH AND PROVIDE EDUCATION ON PAIN MANAGEMENT TECHNIQUES. [code = PAIN MANAGEMENT; RN TO ASSESS AND TEACH, FLOOR BROKER/SAMPLE MAKER HAND TO OBSERVE AND TEACH AND PROVIDE EDUCATION ON PAIN MANAGEMENT TECHNIQUES.] Future Scheduled Test FALL REDUC TION MANAGEMENT; RN TO ASSESS AND OBSERVE, SAMPLE MAKER HAND/FLOOR BROKER TO OBSERVE FALL RISK FACTORS AND EDUCATE PATIENT/CAREGIVER ON STRATEGIES TO MINIMIZE THE RISK OF FALLING. [code = FALL REDUCTION MANAGEMENT; RN TO ASSESS AND OBSERVE, SAMPLE MAKER HAND/FLOOR BROKER TO OBSERVE FALL RISK FACTORS AND EDUCATE [...] REDUCTION SELF-MANAGEMENT AND LIFE-STYLE CHANGES BY 04/04/25 Progress Notes Progress Notes <paragraph>[Visit Date: 2024 by BERT STAUFFER PT]:</paragraph><paragraph>PROVIDED CARE:</paragraph><paragraph>PATIENT AND CG EDUCATED BY PT CHIEF OF FIELD OPERATIONS US PROTOCOL AND SIGNS AND SYMPTOMS OF COVID-19 WELL PREVENTION MEASURES FOR SAME.</paragraph><paragraph>PATIENT EDUCATED BY PT ON DIET MANAGEMENT FOR HEART DISEASE TO PROMOTE CONDITION MANAGEMENT.</paragraph><paragraph>PATIENT EDUCATED BY PT PROPER PACING AND BREATHING TECHNIQUES AND USE OF REST NEEDED PREVIOUSLY INSTRUCTED.</paragraph><paragraph>PATIENT EDUCATED BY PT ON BENEFIT OF CONSISTENCY WITH HEP AND AMBULATION TASKS TO PROMOTE IMPROVED FUNCTIONAL MOBILITY</paragraph><paragraph>PATIENT CUED BY PT ON USE OF APPROPRIATE AD FOR SAFETY AND FALL PREVENTION.</paragraph><paragraph>PATIENT EDUCATED ON LE ELEVATION TECHNIQUES FOR CONDITION MANAGEMENT</paragraph><paragraph>PATIENT IS AN 84-YEAR-OLD FEMALE WHO RESIDES IN PRIVATE RESIDENCE WITH STAIRS REQUIRED TO ENTER AND EXIT. PATIENT REFER TO HOME CARE SERVICES DUE TO FALL WITH LEFT FEMUR FRACTURE REQUIRING SURGICAL REPAIR. PATIENT P L O F WAS INDEPENDENT IN HOME ENVIRONMENT WITH AD USE. PATIENT MEDICAL HISTORY OF FALLS, HTN, HEART DISEASE. PATIENT PRESENTS TODAY WITH CGA TO MINIMAL ASSISTANCE REQUIRED FOR FUNCTIONAL MOBILITY INCLUDING STAIRS. CAREGIVER EDUCATED BY PT ON PROPER GUARDING TO PROMOTE SAFETY AND FALL PREVENTION. PATIENT INSTRUCTED BY PT ON PERFORMANCE OF HEP AND AMBULATION PROGRAM TO PROMOTE FUNCTIONAL MOBILITY. PATIENT PRESENTS TODAY AT HIGH FALL RISK EVIDENCED BY STANDARDIZED TESTING AT 26 SECONDS TUG WITH RW AND 30 SECONDS FIVE TIMES SIT TO STAND. PATIENT WILL BENEFIT FROM SKILLED PHYSICAL THERAPY TO PROMOTE FUNCTIONAL INDEPENDENCE THROUGHOUT HOME AND COMMUNITY. PATIENT AND CAREGIVER VERBALIZE UNDERSTANDING AND AGREEMENT WITH THIS PLAN OF CARE AND PATIENT WILL CONTINUE TO INCREASE ACTIVITY LEVELS ABLE. PATIENT WILL FOLLOW UP WITH PHYSICIAN SCHEDULE.PATIENT DECLINES FURTHER PT SERVICES AND DOES NOT WANT ANY VISITS TO HER HOME.</paragraph> Encounters Start Date/Time End Date/Time Encounter Type Admission Type Attending [facility] Facility Care Department Encounter ID Discharge Date Discharge Status Discharge Condition Discharge Reason Percent Goals Met 2025-02-04 00:00:00 2025-04-04 00:00:00 Outpatient NEW ADMISSION [facility] STOUT [facility] [id number] 80.00
== END 2025-02-14 15:33 | disposition home or self-care (01) ==
PROVIDERS: PCP Internal Medicine; Visit Provider Internal Medicine
DX: Z00.00 Encounter for general adult medical examination without abnormal findings (principal); S72.002A Fracture of unspecified part of neck of left femur, initial encounter for closed fracture; I10 Essential (primary) hypertension; E78.5 Hyperlipidemia, unspecified; E55.9 Vitamin D deficiency, unspecified

== ENCOUNTER 2025-02-25 13:01 | Outpatient (REF) | payer MEDICARE, BC, SELFPAY ==
--- OUTSIDE RECORDS SUMMARY | 2025-02-25 13:04 | XMS_ITS | Encounter Summary ---
Author Organization [facility] Address [address] [place] [address] Care Team Providers Care Refinery Operator Helper Cracking Unit Name Role Phone Jermaine Cool Primary Care Provider Encounter Details Date Type Department Care Team (Late st Contact Info) Description 01/18/2025 Lab Requisition [facility] - Main Lab [address] [place] [address] Nidia Sanchez MD [address] [phone] Weakness Social History Tobacco Use Types Packs/Day [...] LAB CHEMISTRY METHOD 01/19/2025 1:[address] [facility] Potassium 3.8 3.5 - 5.5 mmol/L LAB CHEMISTRY METHOD 01/19/2025 1:[address] [facility] Chloride 107 96 - 110 mmol/L LAB CHEMISTRY METHOD 01/19/2025 1:27 PM [facility] CO2 24 21 - 32 mmol/L LAB CHEMISTRY METHOD 01/19/2025 1:27 PM [facility] Anion Gap 8 3 - 11 LAB CHEMISTRY METHOD 01/19/2025 1:27 PM [facility] Glucose 87 70 - 100 mg/dL LAB CHEMISTRY METHOD 01/19/2025 1:27 PM [facility] BUN 12 5 - 25 mg/dL LAB CHEMISTRY METHOD 01/19/2025 1:27 PM [facility] Creatinine 0.69 0.50 - 1.10 mg/dL LAB CHEMISTRY METHOD 01/19/2025 1:27 PM [facility] eGFR 85 >=60 mL/min/1. 73m2 LAB CHEMISTRY METHOD 01/19/2025 1:27 PM [facility] Comment:Calculation based on the Chronic Kidney Disease Epidemiology Collaboration (CKD-EPI) equation refit without adjustment for race. BUN/Creatinine Ratio 17.4 LAB CHEMISTRY METHOD 01/19/2025 1:27 PM [facility] Calcium 8.7 8.5 - 10.5 mg/dL LAB CHEMISTRY METHOD 01/19/2025 1:27 PM [facility] Blood Venous blood specimen / Unknown Venipuncture / Unknown 01/19/2025 8:31 AM EST 01/19/2025 12:05 PM EST us Nidia Sanchez MD LAB BLOOD ORDERABLES Fin al Result [facility] [address] [place] [address], * (ABNORMAL) Complete blood count (01/19/2025 8:31 AM EST) WBC 6.6 4.8 - 10.8 K/mcL LAB HEMETOLOGY METHOD 01/19/2025 12:58 PM [facility] RBC 3.50(L) 3.80 - 4.80 M/mcL LAB HEMETOLOGY METHOD 01/19/2025 12:58 PM [facility] Hemoglobin 12.2 11.5 - 16.0 g/dL LAB HEMETOLOGY METHOD 01/19/2025 12:58 PM [facility] Hematocrit 37.0 35.0 - 47.0 % LAB HEMETOLOGY METHOD 01/19/2025 12:58 PM [facility] MCV 105.1(H) 79.0 - 98.0 FL LAB HEMETOLOGY METHOD 01/19/2025 12:58 PM [facility] MCH 34.7(H) 27.0 - 32.0 pcg LAB HEMETOLOGY METHOD 01/19/2025 12:58 PM [facility] MCHC 33.0 32.0 - 37.0 g/dL LAB HEMETOLOGY METHOD 01/19/2025 12:58 PM [facility] RDW 11.6 11.0 - 15.0 % LAB HEMETOLOGY METHOD 01/19/2025 12:58 PM [facility] Platelets 301 130 - 400 K/mcL LAB HEMETOLOGY METHOD 01/19/2025 12:58 PM [facility] MPV 9.7 7.0 - 11.0 FL LAB HEMETOLOGY METHOD 01/19/2025 12:58 PM [facility] NRBC 0.0 <1.0 % LAB HEMETOLOGY METHOD 01/19/2025 12:58 PM [facility] NRBC Absolute 0.00 <0.10 K/mcL LAB HEMETOLOGY METHOD 01/19/2025 12:58 PM [facility] Blood Venous blood specimen / Unknown Venipuncture / Unknown 01/19/2025 8:31 AM EST 01/19/2025 12:05 PM EST us Nidia Sanchez MD LAB BLOOD ORDERABLES Fin al Result [facility] ([facility] [address] [place] [address], documented in this encounter Visit Diagnoses Diagnosis Weakness Other malaise and fatigue documented in this encounter Care Teams Refinery Operator Helper Cracking Unit Relationship Specialty Start Date End Date Jermaine Cool PA [address] [place] [phone] PCP - General 12/09/24 documented as of this encounter
--- OUTSIDE RECORDS SUMMARY | 2025-02-25 13:04 | XMS_ITS | Clinical Summary ---
Author Organization [address] Address [address] [place] [address] Phone Care Team Providers Care Laboratory Geneticist Name Role Phone Jermaine Cool Primary Care Provider Encounters Date Type Department Care Team Description 02/02/2025 Lab Requisition [facility] - Main Lab [address] [place] [address] Nidia Sanchez MD Weakness 01/29/2025 Lab Requisition [facility] - Main Lab [address] [place] [address] Nidia Sanchez MD Weakness 01/25/2025 Lab Requisition [facility] - Main Lab [address] [place] [address] Nidia Sanchez MD Weakness 01/22/2025 Lab Requisition [facility] - Main Lab [address] [place] [address] Nidia Sanchez MD Weakness 01/18/2025 Lab Requisition [facility] - Main Lab [address] [place] [address] Nidia Sanchez MD Weakness 01/14/2025 Lab Requisition [facility] - Main Lab [address] [place] [address] Nidia Sanchez MD Weakness 01/11/2025 Lab Requisition [facility] - Main Lab [address] [place] [address] Nidia Sanchez MD Weakness 01/06/2025 Lab Requisition [facility] - Main Lab [address] [place] [address] Nidia Sanchez MD Weakness 01/04/2025 Lab Requisition [facility] - Main Lab [address] [place] [address] Nidia Sanchez MD Weakness 01/02/[address] [facility] Main Lab [address] [place] [address] Nidia Sanchez MD Weakness 12/30/[address] [facility] Main Lab [address] [place] [address] Nidia Sanchez MD Weakness 12/28/[address] [facility] Main Lab [address] [place] [address] Nidia Sanchez MD Weakness 12/26/2024 Lab Requisition [facility] - Main Lab [address] [place] [address] Nidia Sanchez MD Weakness 12/22/[address] [facility] Main Lab [address] [place] [address] Mandy Garcia MD Other shelter (current) drug therapy 12/19/[address] [facility] Main Lab [address] [place] [address] Mandy Garcia MD Encounter for other general examination 12/16/2024 Lab Requisition [facility] - Main Lab [address] [place] [address] Mandy Garcia MD Other terminal clerk (current) drug therapy 12/13/2024 Lab Requisition [facility] - Main Lab [address] [place] [address] Mandy Garcia MD Encounter for other general examination 12/09/2024 Lab Requisition [facility] - Main Lab [address] [facility] [place] [employer] [place] [address] Jermaine Cool PA Encounter for [...] PANEL Routine 12/22/2024 6:55 AM EDT Other shelter (current) drug therapy CBC WITH AUTO DIFFERENTIAL Routine 12/19/2024 6:37 AM EDT Encounter for other general examination CBC AND DIFFERENTIAL Routine 12/19/2024 6:37 AM EDT Encounter for other general examination BASIC METABOLIC PANEL Routine 12/19/2024 6:37 AM EDT Encounter for other general examination COMPREHENSIVE METABOLIC PANEL Routine 12/16/2024 6:32 AM EDT Other shelter (current) drug therapy CBC WITH AUTO DIFFERENTIAL [...] M/mcL LAB HEMETOLOGY METHOD 01/30/2025 12:35 PM [facility] Hemoglobin 13.1 11.5 - 16.0 g/dL [...] MD LAB BLOOD ORDERABLES Fin al Result [facility] [address] [place] [address], * Basic metabolic panel (01/30/2025 8:23 AM EST) Only the most recent of13 resultswithin the time period is included. Sodium 141 133 - 145 mmol/L 01/30/2025 12:03 PM [facility] Potassium 3.8 3.5 - 5.5 mmol/L 01/30/2025 12:03 PM [facility] Chloride 103 96 - 110 mmol/L 01/30/2025 12:03 PM [facility] CO2 27 21 - 32 mmol/L 01/30/2025 12:03 PM [facility] Anion Gap 11 3 - 11 01/30/2025 12:03 PM EST [facility] Glucose [...] MD LAB BLOOD ORDERABLES Fin al Result [facility] [address] [place] [address], * Thyroid stimulating hormone with reflex to free t4 and free t3 (12/26/2024 8:07 AM EDT) TSH 2.82 0.40 - 4.00 mcIU/mL LAB CHEMISTRY METHOD 12/26/2024 8:56 PM EDT [facility] Blood Venous blood specimen / Unknown Venipuncture / Unknown 12/26/2024 8:07 AM EDT 12/26/2024 10:15 AM EDT Nidia Sanchez MD LAB BLOOD ORDERABLES Fin al Result [facility] [address] [place] [address], [place] [phone] * (ABNORMAL) Folate (12/26/2024 8:07 AM EDT) [facility] Folate >20.0(H) 2.8 - 17.0 ng/ml LAB CHEMISTRY METHOD 12/26/2024 12:01 PM EDT [facility] Blood Venous blood specimen / Unknown Venipuncture / Unknown 12/26/2024 8:07 AM EDT 12/26/2024 10:15 AM EDT Nidia Sanchez MD LAB BLOOD ORDERABLES Fin al Result Performing Organization Address [facility] de Phone Number [facility] [address] [place] [address], [place] [phone] * Vitamin B12 (12/26/2024 8:07 AM EDT) [facility] Vitamin B-12 504 250 - 900 pcg/mL LAB CHEMISTRY METHOD 12/26/2024 12:01 PM EDT [facility] Blood Venous blood specimen / Unknown Venipuncture / Unknown 12/26/2024 8:07 AM EDT 12/26/2024 10:15 AM EDT Nidia Sanchez MD LAB BLOOD ORDERABLES Fin al Result Performing Organization Address [facility] Co de Phone Number [facility] [address] [place] [address], [place] [phone] * (ABNORMAL) Comprehensive metabolic panel (12/26/2024 8:07 AM EDT) Only the most recent of3 resultswithin the time period is included. [facility] Sodium 140 133 - 145 mmol/L LAB CHEMISTRY METHOD 12/26/2024 12:01 PM EDT [facility] Potassium 4.1 3.5 - 5.5 mmol/L LAB CHEMISTRY METHOD 12/26/2024 12:01 PM [facility] Chloride 106 96 - 110 mmol/L LAB CHEMISTRY METHOD 12/26/2024 12:01 PM [facility] CO2 26 21 - 32 mmol/L LAB CHEMISTRY METHOD 12/26/2024 12:01 PM [facility] Anion Gap 8 3 - 11 LAB CHEMISTRY METHOD 12/26/2024 12:01 PM [facility] Glucose 77 70 - 100 mg/dL LAB CHEMISTRY METHOD 12/26/2024 12:01 PM [facility] BUN 9 5 - 25 mg/dL LAB CHEMISTRY METHOD 12/26/2024 12:01 [facility] Creatinine 0.62 0.50 - 1.10 mg/dL LAB CHEMISTRY METHOD 12/26/2024 12:01 PM [facility] eGFR 87 >=60 mL/min/1. 73m2 LAB CHEMISTRY METHOD 12/26/2024 12:01 PM [facility] Comment:Calculation based on the Chronic Kidney Disease Epidemiology Collaboration (CKD-EPI) equation refit without adjustment for race. BUN/Creatinine Ratio 14.5 LAB CHEMISTRY METHOD 12/26/2024 12:01 PM [facility] Calcium 9.1 8.5 - 10.5 mg/dL LAB CHEMISTRY METHOD 12/26/2024 12:01 [facility] AST (SGOT) 21 10 - 42 unit/L LAB CHEMISTRY METHOD 12/26/2024 12:01 [facility] ALT (SGPT) 23 10 - 60 unit/L LAB CHEMISTRY METHOD 12/26/2024 12:01 [facility] Alkaline Phosphatase 144(H) 42 - 121 unit/L LAB CHEMISTRY METHOD 12/26/2024 12:01 PM [facility] Total Protein 6.0 6.0 - 8.0 g/dL LAB CHEMISTRY METHOD 12/26/2024 12:01 PM EDT [facility] Albumin 3.1(L) 3.2 - 5.0 g/dL LAB CHEMISTRY METHOD 12/26/2024 12:01 PM EDT [facility] Total Bilirubin 0.7 0.0 - 1.4 mg/dL LAB CHEMISTRY METHOD 12/26/2024 12:01 PM EDT [facility] Blood Venous blood specimen / Unknown Venipuncture / Unknown 12/26/2024 8:07 AM EDT 12/26/2024 10:15 AM EDT us Nidia Sanchez MD LAB BLOOD ORDERABLES Fin al Result [facility] [address] [place] [address], * (ABNORMAL) CBC auto differential (12/19/2024 6:37 AM EDT) Only the most recent of3 resultswithin the time period is included. WBC 5.9 4.8 - 10.8 K/mcL LAB HEMETOLOGY METHOD 12/19/2024 12:19 PM [facility] RBC 3.10(L) 3.80 - 4.80 M/mcL LAB HEMETOLOGY METHOD 12/19/2024 12:19 PM [facility] Hemoglobin 10.8(L) 11.5 - 16.0 g/dL LAB HEMETOLOGY METHOD 12/19/2024 12:19 PM [facility] Hematocrit 33.5(L) 35.0 - 47.0 % LAB HEMETOLOGY METHOD 12/19/2024 12:19 PM [facility] MCV 109.1(H) 79.0 - 98.0 FL LAB HEMETOLOGY METHOD 12/19/2024 12:19 PM [facility] MCH 35.2(H) 27.0 - 32.0 pcg LAB HEMETOLOGY METHOD 12/19/2024 12:[facility] MCHC 32.2 32.0 - 37.0 g/dL LAB HEMETOLOGY METHOD 12/19/2024 12:19 PM [facility] RDW 13.1 11.0 - 15.0 % LAB HEMETOLOGY METHOD 12/19/2024 12:19 PM EDT [facility] Platelets 512(H) 130 - 400 K/mcL LAB HEMETOLOGY METHOD 12/19/2024 12:19 PM [facility] MPV 9.1 7.0 - 11.0 FL LAB HEMETOLOGY METHOD 12/19/2024 12:19 PM [facility] NRBC 0.0 <1.0 % LAB HEMETOLOGY METHOD 12/19/2024 12:19 PM [facility] NRBC Absolute 0.00 <0.10 K/mcL LAB HEMETOLOGY METHOD 12/19/2024 12:19 PM [facility] Neutrophils Relative 61.9 % LAB HEMETOLOGY METHOD 12/19/2024 12:19 PM [facility] Lymphocytes Relative 25.2 % LAB HEMETOLOGY METHOD 12/19/2024 12:19 PM [facility] Monocytes Relative 7.8 % LAB HEMETOLOGY METHOD 12/19/2024 12:19 PM [facility] Eosinophils Relative 3.6 % LAB HEMETOLOGY METHOD 12/19/2024 12:19 PM [facility] Basophils Relative 0.7 % LAB HEMETOLOGY METHOD 12/19/2024 12:19 PM [facility] Immature Granulocytes Relative 0.8 % LAB HEMETOLOGY METHOD 12/19/2024 12:19 PM EDT [facility] Neutrophils Absolute 3.66 1.50 - 7.00 K/mcL LAB HEMETOLOGY METHOD 12/19/2024 12:19 PM EDT [facility] Lymphocytes Absolute 1.49 1.00 - 5.00 K/mcL LAB HEMETOLOGY METHOD 12/19/2024 12:19 PM EDT [facility] Monocytes Absolute 0.46 0.20 - 1.00 K/mcL LAB HEMETOLOGY METHOD 12/19/2024 12:19 PM EDT [facility] Eosinophils Absolute 0.21 0.00 - 0.50 K/mcL LAB HEMETOLOGY METHOD 12/19/2024 12:19 PM EDT [facility] Basophils Absolute 0.04 0.00 - 0.20 K/mcL LAB HEMETOLOGY METHOD 12/19/2024 12:19 PM EDT [facility] Immature Granulocytes Absolute 0.05(H) 0.00 - 0.03 K/mcL LAB HEMETOLOGY METHOD 12/19/2024 12:19 PM EDT [facility] Blood Venous blood specimen / Unknown Venipuncture / Unknown 12/19/2024 6:37 AM EDT 12/19/2024 10:50 AM EDT us Mandy Garcia MD LAB BLOOD ORDERABLES Final Resu lt [facility] [address] [place] [address], * Magnesium (12/09/2024 6:05 AM EDT) Magnesium 2.0 1.9 - 2.6 mg/dL LAB CHEMISTRY METHOD 12/09/2024 11:22 AM EDT [facility] Blood Venous blood specimen / Unknown Venipuncture / Unknown 12/09/2024 6:05 AM EDT 12/09/2024 10:11 AM EDT Jermaine SCHUSTER LAB BLOOD ORDERABLES Final R esult [facility] H[facility] LAB [address] [place] [address], [place] [phone] from Last 3 Months Insurance MEDICARE [facility] Advance Directives Documents on File Type Date Recorded Patient Site Superintendent Expl anation Health Care Decision (hx) 11/03/2023 TAWNYA RODRIGUES DIRECTIVE Care Teams Laboratory Geneticist Relationship Specialty Start Date End Date Jermaine Cool PA [address] [phone] PCP - General 12/09/24
--- OUTSIDE RECORDS SUMMARY | 2025-02-25 13:04 | XMS_ITS | Encounter Summary ---
Author Organization [facility] Address [address] [place] [address] Care Team Providers Care Clerk Of Scales Name Role Phone Jermaine Cool Primary Care Provider Encounter Details Date Type Department Care Team (Late st Contact Info) Description 12/09/2024 Lab Requisition [facility] - Main Lab [address] [facility] [place] [address] Jermaine Cool PA [address] [facility] [address] [place] [address] Encounter for other general examination [...] K/mcL LAB HEMETOLOGY METHOD 12/09/2024 10:34 AM [facility] RBC 3.00(L) 3.80 - 4.80 M/mcL LAB HEMETOLOGY METHOD 12/09/2024 10:34 AM [facility] Hemoglobin 10.8(L) 11.5 - 16.0 g/dL LAB HEMETOLOGY METHOD 12/09/2024 10:34 AM [facility] Hematocrit 32.4(L) 35.0 - 47.0 % LAB HEMETOLOGY METHOD 12/09/2024 10:34 AM [facility] MCV 106.6(H) 79.0 - 98.0 FL LAB HEMETOLOGY METHOD 12/09/2024 10:34 AM [facility] MCH 35.5(H) 27.0 - 32.0 pcg LAB HEMETOLOGY METHOD 12/09/2024 10:34 AM [facility] MCHC 33.3 32.0 - 37.0 g/dL LAB HEMETOLOGY METHOD 12/09/2024 10:34 AM [facility] RDW 12.7 11.0 - 15.0 % LAB HEMETOLOGY METHOD 12/09/2024 10:34 AM [facility] Platelets 256 130 - 400 K/mcL LAB HEMETOLOGY METHOD 12/09/2024 10:34 AM [facility] MPV 10.1 7.0 - 11.0 FL LAB HEMETOLOGY METHOD 12/09/2024 10:34 AM [facility] NRBC 0.0 <1.0 % LAB HEMETOLOGY METHOD 12/09/2024 10:34 AM [facility] NRBC Absolute 0.00 <0.10 K/mcL LAB HEMETOLOGY METHOD 12/09/2024 10:34 AM [facility] Neutrophils Relative 70.6 % LAB HEMETOLOGY METHOD 12/09/2024 10:34 AM [facility] Lymphocytes Relative 18.2 % LAB HEMETOLOGY METHOD 12/09/2024 10:34 AM [facility] Monocytes Relative 8.5 % LAB HEMETOLOGY METHOD 12/09/2024 10:34 AM [facility] Eosinophils Relative 1.7 % LAB HEMETOLOGY METHOD 12/09/2024 10:34 AM [facility] Basophils Relative 0.4 % LAB HEMETOLOGY METHOD 12/09/2024 10:34 AM [facility] Immature Granulocytes Relative 0.6 % LAB HEMETOLOGY METHOD 12/09/2024 10:34 AM [facility] Neutrophils Absolute 4.84 1.50 - 7.00 K/mcL LAB HEMETOLOGY METHOD 12/09/2024 10:34 AM [facility] Lymphocytes Absolute 1.25 1.00 - 5.00 K/mcL LAB HEMETOLOGY METHOD 12/09/2024 10:34 AM [facility] Monocytes Absolute 0.58 0.20 - 1.00 K/mcL LAB HEMETOLOGY METHOD 12/09/2024 10:34 AM [facility] Eosinophils Absolute 0.12 0.00 - 0.50 K/mcL LAB HEMETOLOGY METHOD 12/09/2024 10:34 AM [facility] Basophils Absolute 0.03 0.00 - 0.20 K/mcL LAB HEMETOLOGY METHOD 12/09/2024 10:34 AM [facility] Immature Granulocytes Absolute 0.04(H) 0.00 - 0.03 K/mcL LAB HEMETOLOGY METHOD 12/09/2024 10:34 AM [facility] Blood Venous blood specimen / Unknown Venipuncture / Unknown 12/09/2024 6:05 AM EDT 12/09/2024 10:11 AM EDT Jermaine SCHUSTER LAB BLOOD ORDERABLES Final R esult [facility] [address] [place] [address], [place] [phone] * Magnesium (12/09/2024 6:05 AM EDT) Pathologist [facility] Magnesium 2.0 1.9 - 2.6 mg/dL LAB CHEMISTRY METHOD 12/09/2024 11:22 AM EDT [facility] Blood Venous blood specimen / Unknown Venipuncture / Unknown 12/09/2024 6:05 AM EDT 12/09/2024 10:11 AM EDT Jermaine SCHUSTER LAB BLOOD ORDERABLES Final R esult Performing Organization Address City/[facility]/ZIP Co de Phone Number [facility] [address] [place] [address], [place] [phone] * (ABNORMAL) Comprehensive metabolic panel (12/09/2024 6:05 AM EDT) [facility] Sodium 134 133 - 145 mmol/L LAB CHEMISTRY METHOD 12/09/2024 11:25 AM EDT [facility] Potassium 4.2 3.5 - 5.5 mmol/L LAB CHEMISTRY METHOD 12/09/2024 11:25 AM EDT [facility] Chloride 99 96 - 110 mmol/L LAB CHEMISTRY METHOD 12/09/2024 11:25 AM EDT [facility] CO2 26 21 - 32 mmol/L LAB CHEMISTRY METHOD 12/09/2024 11:25 AM EDT [facility] Anion Gap 9 3 - 11 LAB CHEMISTRY METHOD 12/09/2024 11:25 AM EDT [facility] Glucose 88 70 - 100 mg/dL LAB CHEMISTRY METHOD 12/09/2024 11:25 AM [facility] BUN 7 5 - 25 mg/dL LAB CHEMISTRY METHOD 12/09/2024 11:25 AM [facility] Creatinine 0.40(L) 0.50 - 1.10 mg/dL LAB CHEMISTRY METHOD 12/09/2024 11:25 AM [facility] eGFR 97 >=60 mL/min/1. 73m2 LAB CHEMISTRY METHOD 12/09/2024 11:25 AM [facility] Comment:Calculation based on the Chronic Kidney Disease Epidemiology Collaboration (CKD-EPI) equation refit without adjustment for race. BUN/Creatinine Ratio 17.5 LAB CHEMISTRY METHOD 12/09/2024 11:25 AM [facility] Calcium 8.8 8.5 - 10.5 mg/dL LAB CHEMISTRY METHOD 12/09/2024 11:25 AM [facility] AST (SGOT) 27 10 - 42 unit/L LAB CHEMISTRY METHOD 12/09/2024 11:25 AM [facility] ALT (SGPT) 25 10 - 60 unit/L LAB CHEMISTRY METHOD 12/09/2024 11:25 AM [facility] Alkaline Phosphatase 125(H) 42 - 121 unit/L LAB CHEMISTRY METHOD 12/09/2024 11:25 AM [facility] Total Protein 5.9(L) 6.0 - 8.0 g/dL LAB CHEMISTRY METHOD 12/09/2024 11:25 AM [facility] Albumin 2.8(L) 3.2 - 5.0 g/dL LAB CHEMISTRY METHOD 12/09/2024 11:25 AM [facility] Total Bilirubin 1.1 0.0 - 1.4 mg/dL LAB CHEMISTRY METHOD 12/09/2024 11:25 AM [facility] Blood Venous blood specimen / Unknown Venipuncture / Unknown 12/09/2024 6:05 AM EDT 12/09/2024 10:11 AM EDT us Jermaine SCHUSTER LAB BLOOD ORDERABLES Final R esult [facility] ([facility] [address] [place] [address], documented in this encounter Visit Diagnoses Diagnosis Encounter for other general examination documented in this encounter Care Teams Clerk Of Scales Relationship Specialty Start Date End Date Jermaine Cool PA [address] [phone] PCP - General 12/09/24 documented as of this encounter
--- OUTSIDE RECORDS SUMMARY | 2025-02-25 13:04 | XMS_ITS | Encounter Summary ---
Author Organization [facility] Address [address] [place] [address] Care Team Providers Care Lumber Stacker Operator Name Role Phone Jermaine Cool Primary Care Provider Encounter Details Date Type Department Care Team (Late st Contact Info) Description 01/14/2025 Lab Requisition [facility] - Main Lab 299 [facility] [address] Nidia Sanchez MD [address] [phone] Weakness Social History Tobacco Use Types Packs/Day [...] LAB CHEMISTRY METHOD 01/16/2025 12:[address] [facility] Potassium 4.0 3.5 - 5.5 mmol/L LAB CHEMISTRY METHOD 01/16/2025 12:[address] [facility] Chloride 104 96 - 110 mmol/L LAB CHEMISTRY METHOD 01/16/2025 12:45 PM [facility] CO2 26 21 - 32 mmol/L LAB CHEMISTRY METHOD 01/16/2025 12:45 PM [facility] Anion Gap 8 3 - 11 LAB CHEMISTRY METHOD 01/16/2025 12:45 PM [facility] Glucose 116(H) 70 - 100 mg/dL LAB CHEMISTRY METHOD 01/16/2025 12:45 PM [facility] BUN 11 5 - 25 mg/dL LAB CHEMISTRY METHOD 01/16/2025 12:45 PM [facility] Creatinine 0.69 0.50 - 1.10 mg/dL LAB CHEMISTRY METHOD 01/16/2025 12:45 PM [facility] eGFR 85 >=60 mL/min/1. 73m2 LAB CHEMISTRY METHOD 01/16/2025 12:45 PM [facility] Comment:Calculation based on the Chronic Kidney Disease Epidemiology Collaboration (CKD-EPI) equation refit without adjustment for race. BUN/Creatinine Ratio 15.9 LAB CHEMISTRY METHOD 01/16/2025 12:45 PM [facility] Calcium 9.2 8.5 - 10.5 mg/dL LAB CHEMISTRY METHOD 01/16/2025 12:45 PM [facility] Blood Venous blood specimen / Unknown Venipuncture / Unknown 01/16/2025 9:46 AM EST 01/16/2025 11:18 AM EST us Nidia Sanchez MD LAB BLOOD ORDERABLES Fin al Result [facility] [address] [place] [address], * (ABNORMAL) Complete blood count (01/16/2025 9:46 AM EST) WBC 6.7 4.8 - 10.8 K/mcL LAB HEMETOLOGY METHOD 01/16/2025 12:31 PM [facility] RBC 4.10 3.80 - 4.80 M/mcL LAB HEMETOLOGY METHOD 01/16/2025 12:31 PM [facility] Hemoglobin 14.2 11.5 - 16.0 g/dL LAB HEMETOLOGY METHOD 01/16/2025 12:31 PM [facility] Hematocrit 42.4 35.0 - 47.0 % LAB HEMETOLOGY METHOD 01/16/2025 12:31 PM [facility] MCV 103.9(H) 79.0 - 98.0 FL LAB HEMETOLOGY METHOD 01/16/2025 12:31 PM [facility] MCH 34.8(H) 27.0 - 32.0 pcg LAB HEMETOLOGY METHOD 01/16/2025 12:31 PM [facility] MCHC 33.5 32.0 - 37.0 g/dL LAB HEMETOLOGY METHOD 01/16/2025 12:31 PM [facility] RDW 11.5 11.0 - 15.0 % LAB HEMETOLOGY METHOD 01/16/2025 12:31 PM [facility] Platelets 334 130 - 400 K/mcL LAB HEMETOLOGY METHOD 01/16/2025 12:31 PM [facility] MPV 9.9 7.0 - 11.0 FL LAB HEMETOLOGY METHOD 01/16/2025 12:31 PM [facility] NRBC 0.0 <1.0 % LAB HEMETOLOGY METHOD 01/16/2025 12:31 PM [facility] NRBC Absolute 0.00 <0.10 K/mcL LAB HEMETOLOGY METHOD 01/16/2025 12:31 PM [facility] Blood Venous blood specimen / Unknown Venipuncture / Unknown 01/16/2025 9:46 AM EST 01/16/2025 11:18 AM EST us Nidia Sanchez MD LAB BLOOD ORDERABLES Fin al Result [facility] [address] [place] [address], documented in this encounter Visit Diagnoses Diagnosis Weakness Other malaise and fatigue documented in this encounter Care Teams Lumber Stacker Operator Relationship Specialty Start Date End Date Jermaine Cool PA [address] [place] [phone] PCP - General 12/09/24 documented as of this encounter
--- OUTSIDE RECORDS SUMMARY | 2025-02-25 13:04 | XMS_ITS | Encounter Summary ---
Author Organization [facility] Address [id number] [place] [phone] Care Team Providers Care Twister Frame Tender Name Role Phone Jermaine Cool Primary Care Provider Encounter Details Date Type Department Care Team (Late st Contact Info) Description 02/02/2025 Lab Requisition [facility] - Main Lab 299 [facility] [employer] [place] [address] Nidia Sanchez MD [address] [phone] Weakness Social History Tobacco Use Types Packs/Day [...] fatigue documented in this encounter Care Teams Twister Frame Tender Relationship Specialty Start Date End Date Jermaine Cool PA [address] [phone] PCP - General 12/09/24 documented as of this encounter
--- OUTSIDE RECORDS SUMMARY | 2025-02-25 13:04 | XMS_ITS | Encounter Summary ---
Author Organization [facility] Address [address] [place] [address] Care Team Providers Care House Furnishings Supervisor Name Role Phone Jermaine Cool Primary Care Provider Encounter Details Date Type Department Care Team (Late st Contact Info) Description 12/16/[address] [facility] - Main Lab 299 [facility] [place] [address] Mandy Garcia MD [address] [place], [place] [phone] Other senior living (current) drug therapy Social History Tobacco Use [...] PANEL Routine 12/16/2024 6:32 AM EDT Other senior living (current) drug therapy documented in this encounter [...] mmol/L LAB CHEMISTRY METHOD 12/16/2024 11:15 AM [facility] Anion Gap 8 3 - 11 LAB CHEMISTRY METHOD 12/16/2024 11:15 AM [facility] Glucose 89 70 - 100 mg/dL LAB CHEMISTRY METHOD 12/16/2024 11:15 AM [facility] BUN 11 5 - 25 mg/dL LAB CHEMISTRY METHOD 12/16/2024 11:15 AM [facility] Creatinine 0.59 0.50 - 1.10 mg/dL LAB CHEMISTRY METHOD 12/16/2024 11:15 AM [facility] eGFR 88 >=60 mL/min/1. 73m2 LAB CHEMISTRY METHOD 12/16/2024 11:15 AM [facility] Comment:Calculation based on the Chronic Kidney Disease Epidemiology Collaboration (CKD-EPI) equation refit without adjustment for race. BUN/Creatinine Ratio 18.6 LAB CHEMISTRY METHOD 12/16/2024 11:15 AM [facility] Calcium 8.7 8.5 - 10.5 mg/dL LAB CHEMISTRY METHOD 12/16/2024 11:15 AM [facility] AST (SGOT) 28 10 - 42 unit/L LAB CHEMISTRY METHOD 12/16/2024 11:15 AM [facility] ALT (SGPT) 29 10 - 60 unit/L LAB CHEMISTRY METHOD 12/16/2024 11:15 AM [facility] Alkaline Phosphatase 134(H) 42 - 121 unit/L LAB CHEMISTRY METHOD 12/16/2024 11:15 AM [facility] Total Protein 5.8(L) 6.0 - 8.0 g/dL LAB CHEMISTRY METHOD 12/16/2024 11:15 AM [facility] Albumin 2.8(L) 3.2 - 5.0 [...] Resu lt [facility] [address] [place] [address], documented in this encounter Visit Diagnoses Diagnosis Other senior living (current) drug therapy documented in this encounter Care Teams House Furnishings Supervisor Relationship Specialty Start Date End Date Jermaine Cool PA [address] [place] [phone] PCP - General 12/09/24 documented as of this encounter
--- OUTSIDE RECORDS SUMMARY | 2025-02-25 13:04 | XMS_ITS | Encounter Summary ---
Author Organization [facility] Address [address] [place] [address] Care Team Providers Care Hand Sprayer Name Role Phone Jermaine Cool Primary Care Provider [phone] Encounter Details Date Type Department Care Team (Late st Contact Info) Description 12/28/2024 Lab Requisition [facility] - Main Lab 299 [place] [address] Nidia Sanchez MD [address] [phone] Weakness Social History Tobacco Use Types Packs/Day [...] LAB CHEMISTRY METHOD 12/29/2024 1:26 PM EDT [facility] Potassium 4.1 3.5 - 5.5 mmol/L LAB CHEMISTRY METHOD 12/29/2024 1:26 PM EDT [facility] Chloride 105 96 - 110 mmol/L LAB CHEMISTRY METHOD 12/29/2024 1:26 PM EDT [facility] CO2 24 21 - 32 mmol/L LAB CHEMISTRY METHOD 12/29/2024 1:26 PM T [facility] Anion Gap 9 3 - 11 LAB CHEMISTRY METHOD 12/29/2024 1:26 PM [facility] Glucose 78 70 - 100 mg/dL LAB CHEMISTRY METHOD 12/29/2024 1:26 PM [facility] BUN 9 5 - 25 mg/dL LAB CHEMISTRY METHOD 12/29/2024 1:26 PM [facility] Creatinine 0.60 0.50 - 1.10 mg/dL LAB CHEMISTRY METHOD 12/29/2024 1:26 PM [facility] eGFR 88 >=60 mL/min/1. 73m2 LAB CHEMISTRY METHOD 12/29/2024 1:26 PM [facility] Comment:Calculation based on the Chronic Kidney Disease Epidemiology Collaboration (CKD-EPI) equation refit without adjustment for race. BUN/Creatinine Ratio 15.0 LAB CHEMISTRY METHOD 12/29/2024 1:26 PM [facility] Calcium 9.0 8.5 - 10.5 mg/dL LAB CHEMISTRY METHOD 12/29/2024 1:26 PM [facility] Blood Venous blood specimen / Unknown Venipuncture / Unknown 12/29/2024 8:06 AM EDT 12/29/2024 11:36 AM EDT us Nidia Sanchez MD LAB BLOOD ORDERABLES Fin al Result [facility] [address] [place] [address], * (ABNORMAL) Complete blood count (12/29/2024 8:06 AM EDT) WBC 5.6 4.8 - 10.8 K/mcL LAB HEMETOLOGY METHOD 12/29/2024 11:56 AM [facility] RBC 3.30(L) 3.80 - 4.80 M/mcL LAB HEMETOLOGY METHOD 12/29/2024 11:56 AM [facility] Hemoglobin 11.5 11.5 - 16.0 g/dL LAB HEMETOLOGY METHOD 12/29/2024 11:56 AM [facility] Hematocrit 35.4 35.0 - 47.0 % LAB HEMETOLOGY METHOD 12/29/2024 11:56 AM [facility] MCV 106.6(H) 79.0 - 98.0 FL LAB HEMETOLOGY METHOD 12/29/2024 11:56 AM [facility] MCH 34.6(H) 27.0 - 32.0 pcg LAB HEMETOLOGY METHOD 12/29/2024 11:56 AM [facility] MCHC 32.5 32.0 - 37.0 g/dL LAB HEMETOLOGY METHOD 12/29/2024 11:56 AM [facility] RDW 12.2 11.0 - 15.0 % LAB HEMETOLOGY METHOD 12/29/2024 11:56 AM [facility] Platelets 295 130 - 400 K/mcL LAB HEMETOLOGY METHOD 12/29/2024 11:56 AM [facility] MPV 9.8 7.0 - 11.0 FL LAB HEMETOLOGY METHOD 12/29/2024 11:56 AM [facility] NRBC 0.0 <1.0 % LAB HEMETOLOGY METHOD 12/29/2024 11:56 AM [facility] NRBC Absolute 0.00 <0.10 K/mcL LAB HEMETOLOGY METHOD 12/29/2024 11:56 AM [facility] Blood Venous blood specimen / Unknown Venipuncture / Unknown 12/29/2024 8:06 AM EDT 12/29/2024 11:35 AM EDT us Nidia Sacnhez MD LAB BLOOD ORDERABLES Fin al Result [facility] [address] [place] [address], documented in this encounter Visit Diagnoses Diagnosis Weakness Other malaise and fatigue documented in this encounter Care Teams Hand Sprayer Relationship Specialty Start Date End Date Jermaine Cool PA [address] [phone] PCP - General 12/09/24 documented as of this encounter
--- OUTSIDE RECORDS SUMMARY | 2025-02-25 13:04 | XMS_ITS | Encounter Summary ---
Author Organization [facility] Address [address] [place] [address] Care Team Providers Care Pet Groomer Name Role Phone Jermaine Cool Primary Care Provider Encounter Details Date Type Department Care Team (Late st Contact Info) Description 12/22/2024 Lab Requisition [facility] - Main Lab 299 [facility] [place] [address] Mandy Garcia MD [address] [place], [place] [phone] Other penitentiary (current) drug therapy Social History Tobacco Use [...] PANEL Routine 12/22/2024 6:55 AM EDT Other termite control servicer (current) drug therapy documented in this encounter Results * Basic metabolic panel (12/22/2024 6:55 AM EDT) Sodium 139 133 - 145 mmol/L LAB CHEMISTRY METHOD 12/22/2024 12:34 PM EDT [facility] Potassium 4.3 3.5 - 5.5 mmol/L LAB CHEMISTRY METHOD 12/22/2024 12:34 PM EDT [facility] Chloride 105 96 - 110 mmol/L LAB CHEMISTRY METHOD 12/22/2024 12:34 PM T [facility] CO2 25 21 - 32 mmol/L LAB CHEMISTRY METHOD 12/22/2024 12:34 PM EDT [facility] Anion Gap 9 3 - 11 LAB CHEMISTRY METHOD 12/22/2024 12:34 PM EDT [facility] Glucose 84 70 - 100 mg/dL LAB CHEMISTRY METHOD 12/22/2024 12:34 PM [facility] BUN 10 5 - 25 mg/dL LAB CHEMISTRY METHOD 12/22/2024 12:34 PM [facility] Creatinine 0.58 0.50 - 1.10 mg/dL LAB CHEMISTRY METHOD 12/22/2024 12:34 PM [facility] eGFR 88 >=60 mL/min/1. 73m2 LAB CHEMISTRY METHOD 12/22/2024 12:34 PM [facility] Comment:Calculation based on the Chronic Kidney Disease Epidemiology Collaboration (CKD-EPI) equation refit without adjustment for race. BUN/Creatinine Ratio 17.2 LAB CHEMISTRY METHOD 12/22/2024 12:34 PM [facility] Calcium 8.9 8.5 - 10.5 mg/dL LAB CHEMISTRY METHOD 12/22/2024 12:34 PM [facility] Blood Venous blood specimen / Unknown Venipuncture / Unknown 12/22/2024 6:55 AM EDT 12/22/2024 10:55 AM EDT us Mandy Garcia MD LAB BLOOD ORDERABLES Final Resu lt [facility] [address] [place] [address], documented in this encounter Visit Diagnoses Diagnosis Other penitentiary (current) drug therapy documented in this encounter Care Teams Pet Groomer Relationship Specialty Start Date End Date Jermaine Cool PA [address] [phone] PCP - General 12/09/24 documented as of this encounter
--- OUTSIDE RECORDS SUMMARY | 2025-02-25 13:04 | XMS_ITS | Encounter Summary ---
Author Organization [facility] Address [address] [place] [address] Care Team Providers Care Part Time Flexible Clerk Name Role Phone Jermaine Cool Primary Care Provider Encounter Details Date Type Department Care Team (Late st Contact Info) Description 01/29/2025 Lab Requisition [facility] - Main Lab 299 [place] [address] Nidia Sanchez MD [address] [phone] Weakness Social History Tobacco Use Types Packs/Day [...] - 145 mmol/L 01/30/2025 12:03 PM EST [facility] Potassium 3.8 3.5 - 5.5 mmol/L 01/30/2025 12:03 PM EST [facility] Chloride 103 96 - 110 mmol/L 01/30/2025 12:03 PM EST [facility] CO2 27 21 - 32 mmol/L 01/30/2025 12:[address] [facility] Anion Gap 11 3 - 11 01/30/2025 12:[address] [facility] Glucose 91 70 - 100 mg/dL 01/30/2025 12:[address] [facility] BUN 9 5 - 25 mg/dL 01/30/2025 12:[address] [facility] Creatinine 0.79 0.50 - 1.10 mg/dL 01/30/2025 12:[address] [facility] eGFR 73 >=60 mL/min/1. 73m2 01/30/2025 12:[address] [facility] Comment:Calculation based on the Chronic Kidney Disease Epidemiology Collaboration (CKD-EPI) equation refit without adjustment for race. BUN/Creatinine Ratio 11.4 01/30/2025 12:[address] [facility] Calcium 8.8 8.5 - 10.5 mg/dL 01/30/2025 12:[address] [facility] Blood Venous blood specimen / Unknown Venipuncture / Unknown 01/30/2025 8:23 AM EST 01/30/2025 11:02 AM EST us Nidia Sanchez MD LAB BLOOD ORDERABLES Fin al Result [facility] [address] [place] [address], * (ABNORMAL) Complete blood count (01/30/2025 8:23 AM EST) WBC 6.3 4.8 - 10.8 K/mcL LAB HEMETOLOGY METHOD 01/30/2025 12:[address] [facility] RBC 3.90 3.80 - 4.80 M/mcL LAB HEMETOLOGY METHOD 01/30/2025 12:35 PM EST [facility] Hemoglobin 13.1 11.5 - 16.0 g/dL LAB HEMETOLOGY METHOD 01/30/2025 12:[address] [facility] Hematocrit 40.1 35.0 - 47.0 % LAB HEMETOLOGY METHOD 01/30/2025 12:[address] [facility] MCV 103.6(H) 79.0 - 98.0 FL LAB HEMETOLOGY METHOD 01/30/2025 12:[address] [facility] MCH 33.9(H) 27.0 - 32.0 pcg LAB HEMETOLOGY METHOD 01/30/2025 12:[address] [facility] MCHC 32.7 32.0 - 37.0 g/dL LAB HEMETOLOGY METHOD 01/30/2025 12:[address] [facility] RDW 11.5 11.0 - 15.0 % LAB HEMETOLOGY METHOD 01/30/2025 12:[address] [facility] Platelets 276 130 - 400 K/mcL LAB HEMETOLOGY METHOD 01/30/2025 12:[address] [facility] MPV 10.1 7.0 - 11.0 FL LAB HEMETOLOGY METHOD 01/30/2025 12:[address] [facility] NRBC 0.0 <1.0 % LAB HEMETOLOGY METHOD 01/30/2025 12:[address] [facility] NRBC Absolute 0.00 <0.10 K/mcL LAB HEMETOLOGY METHOD 01/30/2025 12:[address] [facility] Blood Venous blood specimen / Unknown Venipuncture / Unknown 01/30/2025 8:23 AM EST 01/30/2025 11:02 AM EST us Nidia Sanchez MD LAB BLOOD ORDERABLES Fin al Result [facility] [address] [place] [address], documented in this encounter Visit Diagnoses Diagnosis Weakness Other malaise and fatigue documented in this encounter Care Teams Part Time Flexible Clerk Relationship Specialty Start Date End Date Jermaine Cool PA [address] [phone] PCP - General 12/09/24 documented as of this encounter
--- OUTSIDE RECORDS SUMMARY | 2025-02-25 13:04 | XMS_ITS | Encounter Summary ---
Author Organization [facility] Address [address] [place] [address] Care Team Providers Care Machine Sander Name Role Phone Jermaine Cool Primary Care Provider Encounter Details Date Type Department Care Team (Late st Contact Info) Description 01/11/2025 Lab Requisition [facility] - Main Lab 299 [place] [address] Nidia Sanchez MD [address] [phone] Weakness Social History Tobacco Use Types Packs/Day [...] LAB CHEMISTRY METHOD 01/12/2025 11:29 AM EST [facility] Potassium 4.2 3.5 - 5.5 mmol/L LAB CHEMISTRY METHOD 01/12/2025 11:29 AM EST [facility] Chloride 106 96 - 110 mmol/L LAB CHEMISTRY METHOD 01/12/2025 11:29 AM [facility] CO2 25 21 - 32 mmol/L LAB CHEMISTRY METHOD 01/12/2025 11:29 AM [facility] Anion Gap 9 3 - 11 LAB CHEMISTRY METHOD 01/12/2025 11:29 AM [facility] Glucose 91 70 - 100 mg/dL LAB CHEMISTRY METHOD 01/12/2025 11:29 AM [facility] BUN 9 5 - 25 mg/dL LAB CHEMISTRY METHOD 01/12/2025 11:29 AM [facility] Creatinine 0.65 0.50 - 1.10 mg/dL LAB CHEMISTRY METHOD 01/12/2025 11:29 AM [facility] eGFR 86 >=60 mL/min/1. 73m2 LAB CHEMISTRY METHOD 01/12/2025 11:29 AM [facility] Comment:Calculation based on the Chronic Kidney Disease Epidemiology Collaboration (CKD-EPI) equation refit without adjustment for race. BUN/Creatinine Ratio 13.8 LAB CHEMISTRY METHOD 01/12/2025 11:29 AM [facility] Calcium 9.2 8.5 - 10.5 mg/dL LAB CHEMISTRY METHOD 01/12/2025 11:29 AM [facility] Blood Venous blood specimen / Unknown Venipuncture / Unknown 01/12/2025 8:38 AM EST 01/12/2025 10:15 AM EST us Nidia Sanchez MD LAB BLOOD ORDERABLES Fin al Result [facility] [address] [place] [address], * (ABNORMAL) Complete blood count (01/12/2025 8:38 AM EST) WBC 5.7 4.8 - 10.8 K/mcL LAB HEMETOLOGY METHOD 01/12/2025 10:33 AM [facility] RBC 3.90 3.80 - 4.80 M/mcL LAB HEMETOLOGY METHOD 01/12/2025 10:33 AM [facility] Hemoglobin 13.6 11.5 - 16.0 g/dL LAB HEMETOLOGY METHOD 01/12/2025 10:33 AM [facility] Hematocrit 41.2 35.0 - 47.0 % LAB HEMETOLOGY METHOD 01/12/2025 10:33 AM [facility] MCV 105.1(H) 79.0 - 98.0 FL LAB HEMETOLOGY METHOD 01/12/2025 10:33 AM [facility] MCH 34.7(H) 27.0 - 32.0 pcg LAB HEMETOLOGY METHOD 01/12/2025 10:33 AM [facility] MCHC 33.0 32.0 - 37.0 g/dL LAB HEMETOLOGY METHOD 01/12/2025 10:33 AM [facility] RDW 11.6 11.0 - 15.0 % LAB HEMETOLOGY METHOD 01/12/2025 10:33 AM [facility] Platelets 326 130 - 400 K/mcL LAB HEMETOLOGY METHOD 01/12/2025 10:33 AM [facility] MPV 9.6 7.0 - 11.0 FL LAB HEMETOLOGY METHOD 01/12/2025 10:33 AM [facility] NRBC 0.0 <1.0 % LAB HEMETOLOGY METHOD 01/12/2025 10:33 AM [facility] NRBC Absolute 0.00 <0.10 K/mcL LAB HEMETOLOGY METHOD 01/12/2025 10:33 AM [facility] Blood Venous blood specimen / Unknown Venipuncture / Unknown 01/12/2025 8:38 AM EST 01/12/2025 10:15 AM EST us Nidia Sanchez MD LAB BLOOD ORDERABLES Fin al Result [facility] [address] [place] [address], documented in this encounter Visit Diagnoses Diagnosis Weakness Other malaise and fatigue documented in this encounter Care Teams Machine Sander Relationship Specialty Start Date End Date Jermaine Cool PA [address] [place] [phone] PCP - General 12/09/24 documented as of this encounter
--- OUTSIDE RECORDS SUMMARY | 2025-02-25 13:04 | XMS_ITS | Encounter Summary ---
Author Organization [facility] Address [address] [place] [address] Care Team Providers Care Technician Terminal And Repeater Name Role Phone Jermaine Cool Primary Care Provider Encounter Details Date Type Department Care Team (Late st Contact Info) Description 12/26/2024 Lab Requisition [facility] - Main Lab 299 [facility] [place] [address] Nidia Sanchez MD 819 [facility] 1 [place] [address] Weakness Social History Tobacco Use [...] ORDERABLES Fin al Result Performing Organization Address City/[facility]/ZIP Co de Phone Number [facility] [address] [place] [address], [place] [phone] * Vitamin B12 (12/26/2024 8:07 AM EDT) [facility] Vitamin B-12 504 250 - 900 pcg/mL LAB CHEMISTRY METHOD 12/26/2024 12:01 PM EDT [facility] Blood Venous blood specimen / Unknown Venipuncture / Unknown 12/26/2024 8:07 AM EDT 12/26/2024 10:15 AM EDT Nidia Sanchez MD LAB BLOOD ORDERABLES Fin al Result Performing Organization Address [facility]/ZIP Co de Phone Number [facility] [address] [place] [address], [place] [phone] * Thyroid stimulating hormone with reflex to free t4 and free t3 (12/26/2024 8:07 AM EDT) [facility] TSH 2.82 0.40 - 4.00 mcIU/mL LAB CHEMISTRY METHOD 12/26/2024 8:56 PM EDT [facility] Blood Venous blood specimen / Unknown Venipuncture / Unknown 12/26/2024 8:07 AM EDT 12/26/2024 10:15 AM EDT Nidia Sanchez MD LAB BLOOD ORDERABLES Fin al Result [facility] [address] [place] [address], * (ABNORMAL) Comprehensive metabolic panel (12/26/2024 8:07 AM EDT) Sodium 140 133 - 145 mmol/L LAB CHEMISTRY METHOD 12/26/2024 12:01 PM [facility] Potassium 4.1 3.5 - 5.5 mmol/L LAB CHEMISTRY METHOD 12/26/2024 12:01 PM [facility] Chloride 106 96 - 110 mmol/L LAB CHEMISTRY METHOD 12/26/2024 12:01 PM [facility] CO2 26 21 - 32 mmol/L LAB CHEMISTRY METHOD 12/26/2024 12:01 PM [facility] Anion Gap 8 3 - 11 LAB CHEMISTRY METHOD 12/26/2024 12:01 PM [facility] Glucose 77 70 - 100 mg/dL LAB CHEMISTRY METHOD 12/26/2024 12:01 PM [facility] BUN 9 5 - 25 mg/dL LAB CHEMISTRY METHOD 12/26/2024 12:01 PM [facility] Creatinine 0.62 0.50 - 1.10 mg/dL LAB CHEMISTRY METHOD 12/26/2024 12:01 PM [facility] eGFR 87 >=60 mL/min/1. 73m2 LAB CHEMISTRY METHOD 12/26/2024 12:01 PM [facility] Comment:Calculation based on the Chronic Kidney Disease Epidemiology Collaboration (CKD-EPI) equation refit without adjustment for race. BUN/Creatinine Ratio 14.5 LAB CHEMISTRY METHOD 12/26/2024 12:01 PM [facility] Calcium 9.1 8.5 - 10.5 mg/dL LAB CHEMISTRY METHOD 12/26/2024 12:01 PM [facility] AST (SGOT) 21 10 - 42 unit/L LAB CHEMISTRY METHOD 12/26/2024 12:01 PM EDT [facility] ALT (SGPT) 23 10 - 60 unit/L LAB CHEMISTRY METHOD 12/26/2024 12:01 PM [facility] Alkaline Phosphatase 144(H) 42 - 121 unit/L LAB CHEMISTRY METHOD 12/26/2024 12:01 PM T [facility] Total Protein 6.0 6.0 - 8.0 g/dL LAB CHEMISTRY METHOD 12/26/2024 12:01 PM [facility] Albumin 3.1(L) 3.2 - 5.0 g/dL LAB CHEMISTRY METHOD 12/26/2024 12:01 PM [facility] Total Bilirubin 0.7 0.0 - 1.4 mg/dL LAB CHEMISTRY METHOD 12/26/2024 12:01 PM [facility] Blood Venous blood specimen / Unknown Venipuncture / Unknown 12/26/2024 8:07 AM EDT 12/26/2024 10:15 AM EDT us Nidia Sanchez MD LAB BLOOD ORDERABLES Fin al Result [facility] [address] [place] [address], * (ABNORMAL) Complete blood count (12/26/2024 8:07 AM EDT) WBC 5.7 4.8 - 10.8 K/[facility] LAB HEMETOLOGY METHOD 12/26/2024 10:50 AM EDT [facility] RBC 3.20(L) 3.80 - 4.80 M/[facility] LAB HEMETOLOGY METHOD 12/26/2024 10:50 AM EDT [facility] Hemoglobin 11.2(L) 11.5 - 16.0 g/dL LAB HEMETOLOGY METHOD 12/26/2024 10:50 AM EDT [facility] Hematocrit 34.3(L) 35.0 - 47.0 % LAB HEMETOLOGY METHOD 12/26/2024 10:50 AM EDT [facility] MCV 106.5(H) 79.0 - 98.0 FL LAB HEMETOLOGY METHOD 12/26/2024 10:50 AM EDT [facility] MCH 34.8(H) 27.0 - 32.0 pcg LAB HEMETOLOGY METHOD 12/26/2024 10:50 AM EDT [facility] MCHC 32.7 32.0 - 37.0 g/dL LAB HEMETOLOGY METHOD 12/26/2024 10:50 AM EDT [facility] RDW 12.6 11.0 - 15.0 % LAB HEMETOLOGY METHOD 12/26/2024 10:50 AM EDT [facility] Platelets 346 130 - 400 K/mcL LAB HEMETOLOGY METHOD 12/26/2024 10:50 AM EDT [facility] MPV 9.6 7.0 - 11.0 FL LAB HEMETOLOGY METHOD 12/26/2024 10:50 AM EDT [facility] NRBC 0.0 <1.0 % LAB HEMETOLOGY METHOD 12/26/2024 10:50 AM EDT [facility] NRBC Absolute 0.00 <0.10 K/mcL LAB HEMETOLOGY METHOD 12/26/2024 10:50 AM EDT [facility] Blood Venous blood specimen / Unknown Venipuncture / Unknown 12/26/2024 8:07 AM EDT 12/26/2024 10:15 AM EDT us Nidia Sanchez MD LAB BLOOD ORDERABLES Fin al Result [facility] [address] [place] [address], [place] [phone] documented in this encounter Visit Diagnoses Diagnosis Weakness Other malaise and fatigue documented in this encounter Care Teams Technician Terminal And Repeater Relationship Specialty Start Date End Date Jermaine Cool PA [address] [phone] PCP - General 12/09/24 documented as of this encounter
--- OUTSIDE RECORDS SUMMARY | 2025-02-25 13:04 | XMS_ITS | Encounter Summary ---
Author Organization [facility] Address [address] [place] [address] Care Team Providers Care Metropolitan Editor Name Role Phone Jermaine Cool Primary Care Provider Encounter Details Date Type Department Care Team (Late st Contact Info) Description 12/13/2024 Lab Requisition [facility] - Main Lab [address] [place] [address] Mandy Garcia MD [address] [place], [place] [id number] Encounter for other general examination Social History [...] LAB HEMETOLOGY METHOD 12/13/2024 10:09 AM EDT [facility] RBC 3.30(L) 3.80 - 4.80 M/mcL LAB HEMETOLOGY METHOD 12/13/2024 10:09 AM [facility] Hemoglobin 11.5 11.5 - 16.0 g/dL LAB HEMETOLOGY METHOD 12/13/2024 10:09 AM [facility] Hematocrit 35.0 35.0 - 47.0 % LAB HEMETOLOGY METHOD 12/13/2024 10:09 AM [facility] MCV 107.7(H) 79.0 - 98.0 FL LAB HEMETOLOGY METHOD 12/13/2024 10:09 AM [facility] MCH 35.4(H) 27.0 - 32.0 pcg LAB HEMETOLOGY METHOD 12/13/2024 10:09 AM [facility] MCHC 32.9 32.0 - 37.0 g/dL LAB HEMETOLOGY METHOD 12/13/2024 10:09 AM [facility] RDW 13.0 11.0 - 15.0 % LAB HEMETOLOGY METHOD 12/13/2024 10:09 AM [facility] Platelets 422(H) 130 - 400 K/mcL LAB HEMETOLOGY METHOD 12/13/2024 10:09 AM [facility] MPV 9.6 7.0 - 11.0 FL LAB HEMETOLOGY METHOD 12/13/2024 10:09 AM [facility] NRBC 0.0 <1.0 % LAB HEMETOLOGY METHOD 12/13/2024 10:09 AM [facility] NRBC Absolute 0.00 <0.10 K/mcL LAB HEMETOLOGY METHOD 12/13/2024 10:09 AM [facility] Neutrophils Relative 70.4 % LAB HEMETOLOGY METHOD 12/13/2024 10:09 AM [facility] Lymphocytes Relative 19.9 % LAB HEMETOLOGY METHOD 12/13/2024 10:09 AM [facility] Monocytes Relative 6.4 % LAB HEMETOLOGY METHOD 12/13/2024 10:09 AM [facility] Eosinophils Relative 2.0 % LAB HEMETOLOGY METHOD 12/13/2024 10:09 AM [facility] Basophils Relative 0.5 % LAB HEMETOLOGY METHOD 12/13/2024 10:09 AM [facility] Immature Granulocytes Relative 0.8 % LAB HEMETOLOGY METHOD 12/13/2024 10:09 AM [facility] Neutrophils Absolute 5.54 1.50 - 7.00 K/mcL LAB HEMETOLOGY METHOD 12/13/2024 10:09 AM [facility] Lymphocytes Absolute 1.57 1.00 - 5.00 K/mcL LAB HEMETOLOGY METHOD 12/13/2024 10:09 AM [facility] Monocytes Absolute 0.50 0.20 - 1.00 K/mcL LAB HEMETOLOGY METHOD 12/13/2024 10:09 AM [facility] Eosinophils Absolute 0.16 0.00 - 0.50 K/mcL LAB HEMETOLOGY METHOD 12/13/2024 10:09 AM [facility] Basophils Absolute 0.04 0.00 - 0.20 K/mcL LAB HEMETOLOGY METHOD 12/13/2024 10:09 AM [facility] Immature Granulocytes Absolute 0.06(H) 0.00 - 0.03 K/mcL LAB HEMETOLOGY METHOD 12/13/2024 10:09 AM [facility] Blood Venous blood specimen / Unknown Venipuncture / Unknown 12/13/2024 6:28 AM EDT 12/13/2024 8:08 AM EDT us Mandy Garcia MD LAB BLOOD ORDERABLES Final Resu lt [facility] [address] [place] [address], * Basic metabolic panel (12/13/2024 6:28 AM EDT) Sodium 135 133 - 145 mmol/L LAB CHEMISTRY METHOD 12/13/2024 10:33 AM [facility] Potassium 4.3 3.5 - 5.5 mmol/L LAB CHEMISTRY METHOD 12/13/2024 10:33 AM [facility] Chloride 100 96 - 110 mmol/L LAB CHEMISTRY METHOD 12/13/2024 10:33 AM [facility] CO2 25 21 - 32 mmol/L LAB CHEMISTRY METHOD 12/13/2024 10:33 AM [facility] Anion Gap 10 3 - 11 LAB CHEMISTRY METHOD 12/13/2024 10:33 AM [facility] Glucose 90 70 - 100 mg/dL LAB CHEMISTRY METHOD 12/13/2024 10:33 AM [facility] BUN 11 5 - 25 mg/dL LAB CHEMISTRY METHOD 12/13/2024 10:33 AM [facility] Creatinine 0.51 0.50 - 1.10 mg/dL LAB CHEMISTRY METHOD 12/13/2024 10:33 AM [facility] eGFR 91 >=60 mL/min/1. 73m2 LAB CHEMISTRY METHOD 12/13/2024 10:33 AM [facility] Comment:Calculation based on the Chronic Kidney Disease Epidemiology Collaboration (CKD-EPI) equation refit without adjustment for race. BUN/Creatinine Ratio 21.6 LAB CHEMISTRY METHOD 12/13/2024 10:33 AM [facility] Calcium 8.8 8.5 - 10.5 mg/dL LAB CHEMISTRY METHOD 12/13/2024 10:33 AM [facility] Blood Venous blood specimen / Unknown Venipuncture / Unknown 12/13/2024 6:28 AM EDT 12/13/2024 8:08 AM EDT us Mandy Garcia MD LAB BLOOD ORDERABLES Final Resu lt [facility] [address] [place] [address], documented in this encounter Visit Diagnoses Diagnosis Encounter for other general examination documented in this encounter Care Teams Metropolitan Editor Relationship Specialty Start Date End Date Jermaine Cool PA [address] [place] [phone] PCP - General 12/09/24 documented as of this encounter
--- OUTSIDE RECORDS SUMMARY | 2025-02-25 13:04 | XMS_ITS | Encounter Summary ---
Author Organization [facility] Address [address] [place] [address] Care Team Providers Care Meat Service Team Member Name Role Phone Jermaine Cool Primary Care Provider [phone] Encounter Details Date Type Department Care Team (Late st Contact Info) Description 12/30/2024 Lab Requisition [facility] - Main Lab 299 [facility] [place] [address] Nidia Sanchez MD [address] [phone] Weakness Social History Tobacco Use Types Packs/Day [...] fatigue documented in this encounter Care Teams Meat Service Team Member Relationship Specialty Start Date End Date Jermaine Cool PA [address] [phone] PCP - General 12/09/24 documented as of this encounter
--- OUTSIDE RECORDS SUMMARY | 2025-02-25 13:04 | XMS_ITS | Encounter Summary ---
Author Organization [facility] Address [address] [place] [address] Care Team Providers Care Parimutuel Cashier Name Role Phone Jermaine Cool Primary Care Provider [phone] Encounter Details Date Type Department Care Team (Late st Contact Info) Description 01/02/2025 Lab Requisition [facility] - Main Lab [address] [place] [address] Nidia Sanchez MD [address] [phone] Weakness Social History Tobacco Use Types Packs/Day [...] LAB CHEMISTRY METHOD 01/02/2025 2:03 PM EDT [facility] Potassium 4.1 3.5 - 5.5 mmol/L LAB CHEMISTRY METHOD 01/02/2025 2:03 PM EDT [facility] Chloride 105 96 - 110 mmol/L LAB CHEMISTRY METHOD 01/02/2025 2:03 PM EDT [facility] CO2 25 21 - 32 mmol/L LAB CHEMISTRY METHOD 01/02/2025 2:03 PM [facility] Anion Gap 8 3 - 11 LAB CHEMISTRY METHOD 01/02/2025 2:03 PM [facility] Glucose 78 70 - 100 mg/dL LAB CHEMISTRY METHOD 01/02/2025 2:03 PM [facility] BUN 12 5 - 25 mg/dL LAB CHEMISTRY METHOD 01/02/2025 2:03 PM [facility] Creatinine 0.70 0.50 - 1.10 mg/dL LAB CHEMISTRY METHOD 01/02/2025 2:03 PM [facility] eGFR 84 >=60 mL/min/1. 73m2 LAB CHEMISTRY METHOD 01/02/2025 2:03 PM [facility] Comment:Calculation based on the Chronic Kidney Disease Epidemiology Collaboration (CKD-EPI) equation refit without adjustment for race. BUN/Creatinine Ratio 17.1 LAB CHEMISTRY METHOD 01/02/2025 2:03 PM [facility] Calcium 8.9 8.5 - 10.5 mg/dL LAB CHEMISTRY METHOD 01/02/2025 2:03 PM [facility] Blood Venous blood specimen / Unknown Venipuncture / Unknown 01/02/2025 8:41 AM EDT 01/02/2025 10:24 AM EDT us Nidia Sanchez MD LAB BLOOD ORDERABLES Fin al Result [facility] [address] [place] [address], * (ABNORMAL) Complete blood count (01/02/2025 8:41 AM EDT) WBC 5.4 4.8 - 10.8 K/mcL LAB HEMETOLOGY METHOD 01/02/2025 11:29 AM [facility] RBC 3.30(L) 3.80 - 4.80 M/mcL LAB HEMETOLOGY METHOD 01/02/2025 11:29 AM [facility] Hemoglobin 11.7 11.5 - 16.0 g/dL LAB HEMETOLOGY METHOD 01/02/2025 11:29 AM [facility] Hematocrit 34.9(L) 35.0 - 47.0 % LAB HEMETOLOGY METHOD 01/02/2025 11:29 AM [facility] MCV 105.8(H) 79.0 - 98.0 FL LAB HEMETOLOGY METHOD 01/02/2025 11:29 AM [facility] MCH 35.5(H) 27.0 - 32.0 pcg LAB HEMETOLOGY METHOD 01/02/2025 11:29 AM [facility] MCHC 33.5 32.0 - 37.0 g/dL LAB HEMETOLOGY METHOD 01/02/2025 11:29 AM [facility] RDW 12.1 11.0 - 15.0 % LAB HEMETOLOGY METHOD 01/02/2025 11:29 AM [facility] Platelets 290 130 - 400 K/mcL LAB HEMETOLOGY METHOD 01/02/2025 11:29 AM [facility] MPV 9.8 7.0 - 11.0 FL LAB HEMETOLOGY METHOD 01/02/2025 11:29 AM [facility] NRBC 0.0 <1.0 % LAB HEMETOLOGY METHOD 01/02/2025 11:29 AM [facility] NRBC Absolute 0.00 <0.10 K/mcL LAB HEMETOLOGY METHOD 01/02/2025 11:29 AM [facility] Blood Venous blood specimen / Unknown Venipuncture / Unknown 01/02/2025 8:41 AM EDT 01/02/2025 10:23 AM EDT us Nidia Sanchez MD LAB BLOOD ORDERABLES Fin al Result [facility] [address] [place] [address], documented in this encounter Visit Diagnoses Diagnosis Weakness Other malaise and fatigue documented in this encounter Care Teams Parimutuel Cashier Relationship Specialty Start Date End Date Jermaine Cool PA [address] [phone] PCP - General 12/09/24 documented as of this encounter
--- OUTSIDE RECORDS SUMMARY | 2025-02-25 13:04 | XMS_ITS | Encounter Summary ---
Author Organization [facility] Address [address] [place] [address] Care Team Providers Care Mental Health Nurse Name Role Phone Jermaine Cool Primary Care Provider Encounter Details Date Type Department Care Team (Late st Contact Info) Description 01/06/2025 Lab Requisition [facility] - Main Lab [address] [place] [address] Nidia Sanchez MD [address] [phone] Weakness Social History Tobacco Use Types Packs/Day [...] LAB CHEMISTRY METHOD 01/09/2025 11:20 AM EST [facility] Potassium 4.0 3.5 - 5.5 mmol/L LAB CHEMISTRY METHOD 01/09/2025 11:20 AM EST [facility] Chloride 105 96 - 110 mmol/L LAB CHEMISTRY METHOD 01/09/2025 11:20 AM [facility] CO2 26 21 - 32 mmol/L LAB CHEMISTRY METHOD 01/09/2025 11:20 AM [facility] Anion Gap 8 3 - 11 LAB CHEMISTRY METHOD 01/09/2025 11:20 AM [facility] Glucose 87 70 - 100 mg/dL LAB CHEMISTRY METHOD 01/09/2025 11:20 AM [facility] BUN 10 5 - 25 mg/dL LAB CHEMISTRY METHOD 01/09/2025 11:20 AM [facility] Creatinine 0.64 0.50 - 1.10 mg/dL LAB CHEMISTRY METHOD 01/09/2025 11:20 AM [facility] LAB eGFR 86 >=60 mL/min/1. 73m2 LAB CHEMISTRY METHOD 01/09/2025 11:20 AM [facility] Comment:Calculation based on the Chronic Kidney Disease Epidemiology Collaboration (CKD-EPI) equation refit without adjustment for race. BUN/Creatinine Ratio 15.6 LAB CHEMISTRY METHOD 01/09/2025 11:20 AM [facility] Calcium 8.6 8.5 - 10.5 mg/dL LAB CHEMISTRY METHOD 01/09/2025 11:20 AM [facility] Blood Venous blood specimen / Unknown Venipuncture / Unknown 01/09/2025 7:22 AM EST 01/09/2025 10:30 AM EST us Nidia Sanchez MD LAB BLOOD ORDERABLES Fin al Result [facility] [address] [place] [address], * (ABNORMAL) Complete blood count (01/09/2025 7:22 AM EST) WBC 5.2 4.8 - 10.8 K/mcL LAB HEMETOLOGY METHOD 01/09/2025 10:52 AM [facility] RBC 3.40(L) 3.80 - 4.80 M/mcL LAB HEMETOLOGY METHOD 01/09/2025 10:52 AM [facility] Hemoglobin 11.7 11.5 - 16.0 g/dL LAB HEMETOLOGY METHOD 01/09/2025 10:52 AM [facility] Hematocrit 35.2 35.0 - 47.0 % LAB HEMETOLOGY METHOD 01/09/2025 10:52 AM [facility] MCV 103.8(H) 79.0 - 98.0 FL LAB HEMETOLOGY METHOD 01/09/2025 10:52 AM [facility] MCH 34.5(H) 27.0 - 32.0 pcg LAB HEMETOLOGY METHOD 01/09/2025 10:52 AM [facility] LAB MCHC 33.2 32.0 - 37.0 g/dL LAB HEMETOLOGY METHOD 01/09/2025 10:52 AM [facility] RDW 11.7 11.0 - 15.0 % LAB HEMETOLOGY METHOD 01/09/2025 10:52 AM [facility] LAB Platelets 306 130 - 400 K/mcL LAB HEMETOLOGY METHOD 01/09/2025 10:52 AM [facility] LAB MPV 9.9 7.0 - 11.0 FL LAB HEMETOLOGY METHOD 01/09/2025 10:52 AM [facility] NRBC 0.0 <1.0 % LAB HEMETOLOGY METHOD 01/09/2025 10:52 AM [facility] NRBC Absolute 0.00 <0.10 K/mcL LAB HEMETOLOGY METHOD 01/09/2025 10:52 AM [facility] Blood Venous blood specimen / Unknown Venipuncture / Unknown 01/09/2025 7:22 AM EST 01/09/2025 10:30 AM EST us Nidia Sanchez MD LAB BLOOD ORDERABLES Fin al Result [facility] ([facility]) [facility] [address] [place] [address], documented in this encounter Visit Diagnoses Diagnosis Weakness Other malaise and fatigue documented in this encounter Care Teams Mental Health Nurse Relationship Specialty Start Date End Date Jermaine Cool PA [address] [place] [phone] PCP - General 12/09/24 documented as of this encounter
--- OUTSIDE RECORDS SUMMARY | 2025-02-25 13:04 | XMS_ITS | Encounter Summary ---
Author Organization [facility] Address [address] [place] [address] Care Team Providers Care Electric Motor Repair Supervisor Name Role Phone Jermaine Cool Primary Care Provider [phone] Encounter Details Date Type Department Care Team (Late st Contact Info) Description 12/19/2024 Lab Requisition [facility] - Main Lab [address] [place] [address] Mandy Garcia MD [address] [place], [place] [phone] Encounter for other general examination Social History [...] LAB HEMETOLOGY METHOD 12/19/2024 12:19 PM EDT [facility] RBC 3.10(L) 3.80 - 4.80 M/mcL LAB HEMETOLOGY METHOD 12/19/2024 12:19 PM [facility] Hemoglobin 10.8(L) 11.5 - 16.0 g/dL LAB HEMETOLOGY METHOD 12/19/2024 12:19 PM [facility] LAB Hematocrit 33.5(L) 35.0 - 47.0 % LAB HEMETOLOGY METHOD 12/19/2024 12:19 PM [facility] LAB MCV 109.1(H) 79.0 - 98.0 FL LAB HEMETOLOGY METHOD 12/19/2024 12:19 PM [facility] LAB MCH 35.2(H) 27.0 - 32.0 pcg LAB HEMETOLOGY METHOD 12/19/2024 12:19 PM [facility] LAB MCHC 32.2 32.0 - 37.0 g/dL LAB HEMETOLOGY METHOD 12/19/2024 12:19 PM [facility] LAB RDW 13.1 11.0 - 15.0 % LAB HEMETOLOGY METHOD 12/19/2024 12:19 PM [facility] LAB Platelets 512(H) 130 - 400 K/mcL LAB HEMETOLOGY METHOD 12/19/2024 12:19 PM [facility] LAB MPV 9.1 7.0 - 11.0 FL LAB HEMETOLOGY METHOD 12/19/2024 12:19 PM [facility] LAB NRBC 0.0 <1.0 % LAB HEMETOLOGY METHOD 12/19/2024 12:19 PM [facility] LAB NRBC Absolute 0.00 <0.10 K/mcL LAB HEMETOLOGY METHOD 12/19/2024 12:19 PM [facility] Neutrophils Relative 61.9 % LAB HEMETOLOGY METHOD 12/19/2024 12:19 PM [facility] Lymphocytes Relative 25.2 % LAB HEMETOLOGY METHOD 12/19/2024 12:19 PM [facility] Monocytes Relative 7.8 % LAB HEMETOLOGY METHOD 12/19/2024 12:19 PM [facility] Eosinophils Relative 3.6 % LAB HEMETOLOGY METHOD 12/19/2024 12:19 PM [facility] Basophils Relative 0.7 % LAB HEMETOLOGY METHOD 12/19/2024 12:19 PM [facility] Immature Granulocytes Relative 0.8 % LAB HEMETOLOGY METHOD 12/19/2024 12:19 PM [facility] Neutrophils Absolute 3.66 1.50 - 7.00 K/mcL LAB HEMETOLOGY METHOD 12/19/2024 12:19 PM [facility] Lymphocytes Absolute 1.49 1.00 - 5.00 K/mcL LAB HEMETOLOGY METHOD 12/19/2024 12:19 PM [facility] Monocytes Absolute 0.46 0.20 - 1.00 K/mcL LAB HEMETOLOGY METHOD 12/19/2024 12:19 PM [facility] Eosinophils Absolute 0.21 0.00 - 0.50 K/mcL LAB HEMETOLOGY METHOD 12/19/2024 12:19 PM [facility] Basophils Absolute 0.04 0.00 - 0.20 K/mcL LAB HEMETOLOGY METHOD 12/19/2024 12:19 PM [facility] Immature Granulocytes Absolute 0.05(H) 0.00 - 0.03 K/mcL LAB HEMETOLOGY METHOD 12/19/2024 12:19 PM [facility] Blood Venous blood specimen / Unknown Venipuncture / Unknown 12/19/2024 6:37 AM EDT 12/19/2024 10:50 AM EDT us Mandy Garcia MD LAB BLOOD ORDERABLES Final Resu lt [facility] [address] [place] [address], * Basic metabolic panel (12/19/2024 6:37 AM EDT) Sodium 136 133 - 145 mmol/L LAB CHEMISTRY METHOD 12/19/2024 1:11 PM [facility] Potassium 4.4 3.5 - 5.5 mmol/L LAB CHEMISTRY METHOD 12/19/2024 1:11 PM [facility] Chloride 103 96 - 110 mmol/L LAB CHEMISTRY METHOD 12/19/2024 1:11 PM [facility] CO2 24 21 - 32 mmol/L LAB CHEMISTRY METHOD 12/19/2024 1:11 PM [facility] Anion Gap 9 3 - 11 LAB CHEMISTRY METHOD 12/19/2024 1:11 PM [facility] Glucose 84 70 - 100 mg/dL LAB CHEMISTRY METHOD 12/19/2024 1:11 PM [facility] BUN 10 5 - 25 mg/dL LAB CHEMISTRY METHOD 12/19/2024 1:11 PM [facility] Creatinine 0.58 0.50 - 1.10 mg/dL LAB CHEMISTRY METHOD 12/19/2024 1:11 PM [facility] LAB eGFR 88 >=60 mL/min/1. 73m2 LAB CHEMISTRY METHOD 12/19/2024 1:11 PM [facility] LAB Comment:Calculation based on the Chronic Kidney Disease Epidemiology Collaboration (CKD-EPI) equation refit without adjustment for race. BUN/Creatinine Ratio 17.2 LAB CHEMISTRY METHOD 12/19/2024 1:11 PM [facility] Calcium 8.9 8.5 - 10.5 mg/dL LAB CHEMISTRY METHOD 12/19/2024 1:[address] [facility] Blood Venous blood specimen / Unknown Venipuncture / Unknown 12/19/2024 6:37 AM EDT 12/19/2024 10:50 AM EDT us Mnady Garcia MD LAB BLOOD ORDERABLES Final Resu lt [facility] [address] [place] [address], documented in this encounter Visit Diagnoses Diagnosis Encounter for other general examination documented in this encounter Care Teams Electric Motor Repair Supervisor Relationship Specialty Start Date End Date Jermaine Cool PA [address] [phone] PCP - General 12/09/24 documented as of this encounter
--- OUTSIDE RECORDS SUMMARY | 2025-02-25 13:04 | XMS_ITS | Encounter Summary ---
Author Organization [facility] Address [address] [place] [address] Care Team Providers Care Purchasing/Receiving Name Role Phone Jermaine Cool Primary Care Provider Encounter Details Date Type Department Care Team (Late st Contact Info) Description 01/25/2025 Lab Requisition [facility] - Main Lab [address] [facility] [place] [address] Nidia Sanchez MD [address] [phone] Weakness Social History Tobacco Use Types Packs/Day [...] 21 - 32 mmol/L 01/26/2025 11:02 AM [facility] LAB Anion Gap 13(H) 3 - 11 01/26/2025 11:02 AM [facility] Glucose 95 70 - 100 mg/dL 01/26/2025 11:02 AM [facility] BUN 9 5 - 25 mg/dL 01/26/2025 11:02 AM [facility] Creatinine 0.72 0.50 - 1.10 mg/dL 01/26/2025 11:02 AM [facility] eGFR 82 >=60 mL/min/1. 73m2 01/26/2025 11:02 AM [facility] Comment:Calculation based on the Chronic Kidney Disease Epidemiology Collaboration (CKD-EPI) equation refit without adjustment for race. BUN/Creatinine Ratio 12.5 01/26/2025 11:02 AM [facility] Calcium 9.0 8.5 - 10.5 mg/dL 01/26/2025 11:02 AM [facility] Blood Venous blood specimen / Unknown Venipuncture / Unknown 01/26/2025 8:18 AM EST 01/26/2025 9:49 AM EST us Nidia Sanchez MD LAB BLOOD ORDERABLES Fin al Result [facility] LAB [address] [place] [address], * (ABNORMAL) Complete blood count (01/26/2025 8:18 AM EST) [facility] WBC 6.0 4.8 - 10.8 K/[facility] LAB HEMETOLOGY METHOD 01/26/2025 10:24 AM EST [facility] LAB RBC 4.00 3.80 - 4.80 M/[facility] LAB HEMETOLOGY METHOD 01/26/2025 10:24 AM [facility] Hemoglobin 13.3 11.5 - 16.0 g/dL LAB HEMETOLOGY METHOD 01/26/2025 10:24 AM [facility] Hematocrit 41.0 35.0 - 47.0 % LAB HEMETOLOGY METHOD 01/26/2025 10:24 AM [facility] MCV 103.3(H) 79.0 - 98.0 FL LAB HEMETOLOGY METHOD 01/26/2025 10:24 AM [facility] LAB MCH 33.5(H) 27.0 - 32.0 pcg LAB HEMETOLOGY METHOD 01/26/2025 10:24 AM [facility] LAB MCHC 32.4 32.0 - 37.0 g/dL LAB HEMETOLOGY METHOD 01/26/2025 10:24 AM [facility] RDW 11.3 11.0 - 15.0 % LAB HEMETOLOGY METHOD 01/26/2025 10:24 AM [facility] Platelets 288 130 - 400 K/mcL LAB HEMETOLOGY METHOD 01/26/2025 10:24 AM [facility] MPV 10.1 7.0 - 11.0 FL LAB HEMETOLOGY METHOD 01/26/2025 10:24 AM [facility] NRBC 0.0 <1.0 % LAB HEMETOLOGY METHOD 01/26/2025 10:24 AM [facility] NRBC Absolute 0.00 <0.10 K/mcL LAB HEMETOLOGY METHOD 01/26/2025 10:24 AM [facility] Blood Venous blood specimen / Unknown Venipuncture / Unknown 01/26/2025 8:18 AM EST 01/26/2025 9:49 AM EST Nidia Sanchez MD LAB BLOOD ORDERABLES Fin al Result [facility] [address] [place] [address], documented in this encounter Visit Diagnoses Diagnosis Weakness Other malaise and fatigue documented in this encounter Care Teams Purchasing/Receiving Relationship Specialty Start Date End Date Jermaine Cool PA [address] [place] [phone] PCP - General 12/09/24 documented as of this encounter
--- OUTSIDE RECORDS SUMMARY | 2025-02-25 13:04 | XMS_ITS | Encounter Summary ---
Author Organization [facility] Address [address] [place] [address] Care Team Providers Care Auto Salvage Worker Name Role Phone Jermaine Cool Primary Care Provider [phone] Encounter Details Date Type Department Care Team (Late st Contact Info) Description 01/22/2025 Lab Requisition [facility] - Main Lab [address] [place] [address] Nidia Sanchez MD [address] [phone] Weakness Social History Tobacco Use Types Packs/Day [...] al Result [facility] [address] [place] [address], * (ABNORMAL) Complete blood count (01/23/2025 8:36 [...] EST 01/23/2025 10:05 AM EST us Nidia Sanchze MD LAB BLOOD ORDERABLES Fin al Result [facility] [address] [place] [address], documented in this encounter Visit Diagnoses Diagnosis Weakness Other malaise and fatigue documented in this encounter Care Teams Auto Salvage Worker Relationship Specialty Start Date End Date Jermaine Cool PA [address] [place] [phone] PCP - General 12/09/24 documented as of this encounter
--- OUTSIDE RECORDS SUMMARY | 2025-02-25 13:05 | XMS_ITS | Encounter Summary ---
Author Organization [facility] Address [address] [place] [address] Care Team Providers Care Hotel Guest Service Agent Name Role Phone Jermaine Cool Primary Care Provider Encounter Details Date Type Department Care Team (Late st Contact Info) Description 01/04/2025 Lab Requisition [facility] - Main Lab [address] [place] [address] Nidia Sanchez MD [address] [phone] Weakness Social History Tobacco Use Types Packs/Day [...] LAB CHEMISTRY METHOD 01/05/2025 12:05 PM EDT [facility] Potassium 4.1 3.5 - 5.5 mmol/L LAB CHEMISTRY METHOD 01/05/2025 12:05 PM EDT [facility] Chloride 105 96 - 110 mmol/L LAB CHEMISTRY METHOD 01/05/2025 12:05 PM [facility] LAB CO2 24 21 - 32 mmol/L LAB CHEMISTRY METHOD 01/05/2025 12:05 PM [facility] LAB Anion Gap 8 3 - 11 LAB CHEMISTRY METHOD 01/05/2025 12:05 PM [facility] LAB Glucose 89 70 - 100 mg/dL LAB CHEMISTRY METHOD 01/05/2025 12:05 PM [facility] LAB BUN 9 5 - 25 mg/dL LAB CHEMISTRY METHOD 01/05/2025 12:05 PM [facility] LAB Creatinine 0.66 0.50 - 1.10 mg/dL LAB CHEMISTRY METHOD 01/05/2025 12:05 PM [facility] LAB eGFR 86 >=60 mL/min/1. 73m2 LAB CHEMISTRY METHOD 01/05/2025 12:05 PM [facility] LAB Comment:Calculation based on the Chronic Kidney Disease Epidemiology Collaboration (CKD-EPI) equation refit without adjustment for race. BUN/Creatinine Ratio 13.6 LAB CHEMISTRY METHOD 01/05/2025 12:05 PM [facility] LAB Calcium 8.7 8.5 - 10.5 mg/dL LAB CHEMISTRY METHOD 01/05/2025 12:05 PM [facility] LAB Blood Venous blood specimen / Unknown Venipuncture / Unknown 01/05/2025 8:29 AM EDT 01/05/2025 10:37 AM EDT us Nidia Sanchez MD LAB BLOOD ORDERABLES Fin al Result [facility] [address] [place] [address], * (ABNORMAL) Complete blood count (01/05/2025 8:29 AM EDT) WBC 5.9 4.8 - 10.8 K/mcL LAB HEMETOLOGY METHOD 01/05/2025 11:19 AM [facility] LAB RBC 3.30(L) 3.80 - 4.80 M/mcL LAB HEMETOLOGY METHOD 01/05/2025 11:19 AM [facility] LAB Hemoglobin 11.3(L) 11.5 - 16.0 g/dL LAB HEMETOLOGY METHOD 01/05/2025 11:19 AM [facility] LAB Hematocrit 34.3(L) 35.0 - 47.0 % LAB HEMETOLOGY METHOD 01/05/2025 11:19 AM [facility] LAB MCV 103.9(H) 79.0 - 98.0 FL LAB HEMETOLOGY METHOD 01/05/2025 11:19 AM [facility] LAB MCH 34.2(H) 27.0 - 32.0 pcg LAB HEMETOLOGY METHOD 01/05/2025 11:19 AM [facility] LAB MCHC 32.9 32.0 - 37.0 g/dL LAB HEMETOLOGY METHOD 01/05/2025 11:19 AM [facility] LAB RDW 11.9 11.0 - 15.0 % LAB HEMETOLOGY METHOD 01/05/2025 11:19 AM [facility] LAB Platelets 292 130 - 400 K/mcL LAB HEMETOLOGY METHOD 01/05/2025 11:19 AM [facility] LAB MPV 10.1 7.0 - 11.0 FL LAB HEMETOLOGY METHOD 01/05/2025 11:19 AM [facility] LAB NRBC 0.0 <1.0 % LAB HEMETOLOGY METHOD 01/05/2025 11:19 AM [facility] LAB NRBC Absolute 0.00 <0.10 K/mcL LAB HEMETOLOGY METHOD 01/05/2025 11:19 AM [facility] LAB Blood Venous blood specimen / Unknown Venipuncture / Unknown 01/05/2025 8:29 AM EDT 01/05/2025 10:37 AM EDT us Nidia Sanchez MD LAB BLOOD ORDERABLES Fin al Result [facility] [address] [place] [address], documented in this encounter Visit Diagnoses Diagnosis Weakness Other malaise and fatigue documented in this encounter Care Teams Hotel Guest Service Agent Relationship Specialty Start Date End Date Jermaine Cool PA [address] [place] [phone] PCP - General 12/09/24 documented as of this encounter
[2025-02-25 15:19] LABS: MANUAL DIFF FLAG NO
[2025-02-25 15:21] LABS: Hematocrit 43.6 % (37.0-47.0); Hemoglobin 14.5 g/dl (12.0-16.0); Imm Gran Abs Auto 0.02 X10*3/uL (0.00-0.03); Imm Gran Pct Auto 0.3 % (0.0-0.4); Lymphocytes Absolute Auto 1.9 X10*3/uL (1.2-4.9); Mean Corpuscular HGB Conc 33.3 g/dl (31.0-35.0); Mean Corpuscular Hemoglobin 33.3 pg (27.0-33.0); Mean Corpuscular Volume 100.2 fL (80.0-98.0); NRBC Abs Auto 0.000 X10*3/uL (0.0-0.012); NRBC Pct Auto 0.0 /100WBC (0.0-0.2); Platelet Count 268 X10*3/uL (160-400); Red Blood Count 4.35 X10*6/uL (4.20-5.50); White Blood Count 7.4 X10*3/uL (4.8-10.8)
[2025-02-25 15:37] LABS: Alanine Aminotransferase 10 U/L (0-31); Albumin Level 4.5 g/dL (3.5-5.0); Alkaline Phosphatase 115 U/L (39-117); Anion Gap 17 (12-20); Aspartate Amino Transferase 25 U/L (5-31); Blood Urea Nitrogen 13 mg/dL (9-16); Calcium 9.8 mg/dL (8.4-10.2); Carbon Dioxide 23 mmol/L (22-29); Chloride 106 mmol/L (96-108); Cholesterol 154 mg/dL (<200); Estimated Glomerular Filt Rate > 60; HDL Cholesterol 39 mg/dL (>40); Potassium 3.9 mmol/L (3.3-5.1); Sodium 142 mmol/L (135-145); Total Protein 7.6 g/dL (6.5-8.0); Triglycerides 273 mg/dL (<150)
--- OUTSIDE RECORDS SUMMARY | 2025-04-03 19:00 | XMS_ITS | Clinical Summary ---
Author Organization Unknown Care Team Providers Care Matte Cutter Name Role Phone DANAE NAYAK, UMANG Unavailable Unavailable ARGELIA RN, ALLEGRA Unavailable Unavailable JUVENCIO BRASWELLN, RANDI Unavailable Unavail able XIOMY PT, BERT Unavailable Unavailable RJ ROTO MIXER OPERATOR, UMESH Unavailable Unavailable LENGIEZA OT, SAMUEL Unavailable Unavailable Payers Payer Name Policy Type Policy Number Effective Date Expira tion Date MEDICARE.[facility].PDGM [id number] Problems Condition Name Condition Details Condition Category Status Onset Date Resolution Date Last Treatment Date Treating Clinician Comments AGE-REL OSTEOPOR W CRNT PATH FX, L FEMR, 7THD Active 2024-03 00:00: 00 HYPERTENSIVE HEART DISEASE WITHOUT HEART FAILURE Active 2024-03 00:00: 00 NONRHEUMATIC AORTIC (VALVE) STENOSIS Active 2024-03 00:00: 00 HYPERLIPIDEM IA, UNSPECIFIED Active 2024-03 00:00: 00 HYPO-OSMOLAL ITY AND HYPONATREMIA Active 2024-03 00:00: 00 UNSPECIFIED PROTEIN-SIDNEY PASCALE MALNUTRITION Active 2024-03 00:00: 00 OTHER CHRONIC PAIN Active 2024-03 00:00: 00 MAJOR DEPRESSIVE DISORDER, RECURRENT, IN REMISSION, UNSP Active 2024-03 00:00: 00 PERSONAL HISTORY OF URINARY (TRACT) INFECTIONS Active 2024-03 00:00: 00 HISTORY OF FALLING Active 2024-03 00:00: 00 Allergies, Adverse Reactions, Alerts Allergy Name Allergy Type Status Severity Reaction(s) Onset Date Inactive Date Treating Clinician Comments AUGMENTIN Propensity to adverse reactions Active 2024-03 12:21: 58 Medications Ordered Medication Name Filled Medication Name Start Date Stop Date Current Medication? Ordering Clinician Indication Dosage Frequency Signature (SIG) Comments Components amlodipine 2.5 mg tablet 2024-03 00:00: 00 Yes [id number] HTN 1 tablet DAILY 1 tablet DAILY (route: oral) Med Classific ation: Cardiovas cular Therapy Agents atorvastati n 20 mg tablet 2024-03 00:00: 00 Yes [id number] CHOLESTEROL 1 tablet DAILY 1 tablet DAILY (route: oral) Med Classific ation: Cardiovas cular Therapy Agents gabapentin 100 mg capsule 2024-03 00:00: 00 Yes [id number] PAIN 1 capsule 2 TIMES DAILY 1 capsule 2 TIMES DAILY (route: oral) Med Classific ation: Central Nervous System Agents mirtazapine 30 mg tablet 2024-03 00:00: 00 Yes [id number] SLEEP 1 tablet BEDTIME 1 tablet BEDTIME (route: oral) Med Classific ation: Central Nervous System Agents pantoprazol e 40 mg tablet,jacquie yed release 2024-03 00:00: 00 Yes [id number] GERD 1 tablet DAILY 1 tablet DAILY (route: oral) Med Classific ation: Gastroint estinal Therapy Agents sertraline 50 mg tablet 2024-03 00:00: 00 Yes [id number] DEPRESSION 1 tablet DAILY 1 tablet DAILY (route: oral) Med Classific ation: Central Nervous System Agents acetaminoph en 325 mg tablet 2024-03 00:00: 00 Yes [id number] PAIN 2 tablet 3 TIMES DAILY 2 tablet 3 TIMES DAILY (route: oral) Med Classific ation: Analgesic , Anti-infl ammatory or Antipyret ic calcipotrie ne 0.005 % topical cream 2024-03 00:00: 00 Yes [id number] PSORIASIS Per instruc tions DAILY Per instructio ns DAILY (route: topical) Med Classific ation: Dermatolo gical Calcium 500 + D 500 mg-10 mcg (400 unit) tablet 2024-03 00:00: 00 Yes [id number] SUPPLEMENT 1 tablet 2 TIMES DAILY 1 tablet 2 TIMES DAILY (route: oral) Med Classific ation: Electroly te Balance-N utritiona l Products Lidocaine Pain Relief 4 % topical patch 2024-03 00:00: 00 Yes [id number] PAIN 1 adhesiv e patch, medicat ed DAILY 1 adhesive patch, medicated DAILY (route: topical) Med Classific ation: Dermatolo gical oxycodone 5 mg tablet 2024-03 00:00: 00 Yes [id number] SEVERE PAIN 1 tablet 4 TIMES DAILY 1 tablet 4 TIMES DAILY (route: oral) Med Classific ation: Analgesic , Anti-infl ammatory or Antipyret ic Vital Signs Vital Name Observation Time Observation Value Commen ts Temperature 2025-02-21 09:54:00.000 98.4 [degF] Temperature 2025-02-13 11:07:00.000 97.9 [degF] Temperature 2025-02-04 12:29:00.000 97.6 [degF] BMI (%) 2025-02-04 12:29:00.000 34 kg/m2 Height 2025-02-04 12:29:00.000 59 [in_us] Pulse 2025-02-21 09:54:00.000 88 /min Pulse 2025-02-13 11:07:00.000 67 /min Pulse 2025-02-04 12:29:00.000 68 /min O2 Saturation (%) 2025-02-13 11:08:00.000 96 % Respirations 2025-02-21 09:54:00.000 20 /min Respirations 2025-02-13 11:07:00.000 18 /min Respirations 2025-02-04 12:29:00.000 18 /min Weight (lbs) 2025-02-04 12:29:00.000 170 [lb_av] Systolic Blood Pressure 2025-02-21 09:54:00.000 112 mm [Hg] Systolic Blood Pressure 2025-02-13 11:07:00.000 124 mm [Hg] Systolic Blood Pressure 2025-02-04 12:29:00.000 128 mm [Hg] Diastolic Blood Pressure 2025-02-21 09:54:00.000 62 mm [Hg] Diastolic Blood Pressure 2025-02-13 11:07:00.000 66 mm [Hg] Diastolic Blood Pressure 2025-02-04 12:29:00.000 68 mm [Hg] Plan of Treatment Planned Activity Planned Date Details Comments Future Scheduled Test RN TO OBSE RVE, ASSESS, EVALUATE, AND DEVELOP AN INDIVIDUALIZED PLAN OF CARE. AGENCY MAY ACCEPT ORDERS FROM CONSULTING PHYSICIANS RN TO OBSERVE AND ASSESS, OPERATION SUPERVISOR/CHRONIC CONDITION NURSE TO OBSERVE FOR RISK FOR FALLS AND INSTRUCT IN FALL PREVENTION, HOME SAFETY, MEDICATION MANAGEMENT, INFECTION PREVENTION, AND NUTRITION MANAGEMENT. RN/OPERATION SUPERVISOR/CHRONIC CONDITION NURSE NURSE MAY PERFORM O2 SATURATION LEVEL ON ADMISSION AND PRN FOR RESP STATUS CHANGES FOR RN TO ASSESS/OPERATION SUPERVISOR TO OBSERVE PATIENT, WITH NOTIFICATION TO THE PHYSICIAN IF SATURATION IS 90% IN THE ABSENCE OF MORE SPECIFIC PARAMETERS FROM THE PHYSICIAN. AGENCY MAY PERFORM A RESUMPTION OF CARE VISIT FOLLOWING ANY HOSPITAL ADMISSION. RN/OPERATION SUPERVISOR/CHRONIC CONDITION NURSE TO MONITOR CO-MORBID CONDITIONS LISTED ON THE PLAN OF CARE AND ANY NEW CONDITIONS THAT PRESENT THEMSELVES DURING THIS EPISODE TO IDENTIFY CHANGES AND INTERVENE TO MINIMIZE COMPLICATIONS. [code = RN TO OBSERVE, ASSESS, EVALUATE, AND DEVELOP AN INDIVIDUALIZED PLAN OF CARE. AGENCY MAY ACCEPT ORDERS FROM CONSULTING PHYSICIANS RN TO OBSERVE AND ASSESS, OPERATION SUPERVISOR/CHRONIC CONDITION NURSE TO OBSERVE FOR RISK FOR FALLS AND INSTRUCT IN FALL PREVENTION, HOME SAFETY, MEDICATION MANAGEMENT, INFECTION PREVENTION, AND NUTRITION MANAGEMENT. RN/OPERATION SUPERVISOR/CHRONIC CONDITION NURSE NURSE MAY PERFORM O2 SATURATION LEVEL ON ADMISSION AND PRN FOR RESP STATUS CHANGES FOR RN TO ASSESS/OPERATION SUPERVISOR TO OBSERVE PATIENT, WITH NOTIFICATION TO THE PHYSICIAN IF SATURATION IS 90% IN THE ABSENCE OF MORE SPECIFIC PARAMETERS FROM THE PHYSICIAN. AGENCY MAY PERFORM A RESUMPTION OF CARE VISIT FOLLOWING ANY HOSPITAL ADMISSION. RN/OPERATION SUPERVISOR/CHRONIC CONDITION NURSE TO MONITOR CO-MORBID CONDITIONS LISTED ON THE PLAN OF CARE AND ANY NEW CONDITIONS THAT PRESENT THEMSELVES DURING THIS EPISODE TO IDENTIFY CHANGES AND INTERVENE TO MINIMIZE COMPLICATIONS.] Future Scheduled Test RISK FOR H OSPITALIZATION; RN TO ASSESS/TEACH, CHRONIC CONDITION NURSE/OPERATION SUPERVISOR TO OBSERVE/TEACH PATIENT/CAREGIVER ON RISK FOR HOSPITALIZATION/EMERGENCY ROOM VISITS, TEACH SIGNS AND SYMPTOMS THAT PUT PATIENT AT RISK, WHEN TO NOTIFY NURSE/PHYSICIAN OF COMPLICATIONS/DECLINE, AND WHEN TO CALL 911. [code = RISK FOR HOSPITALIZATION; RN TO ASSESS/TEACH, CHRONIC CONDITION NURSE/OPERATION SUPERVISOR TO OBSERVE/TEACH PATIENT/CAREGIVER ON RISK FOR HOSPITALIZATION/EMERGENCY ROOM VISITS, TEACH SIGNS AND SYMPTOMS THAT PUT PATIENT AT RISK, WHEN TO NOTIFY NURSE/PHYSICIAN OF COMPLICATIONS/DECLINE, AND WHEN TO CALL 911.] Future Scheduled Test MEDICATION MANAGEMENT; RN/OPERATION SUPERVISOR/CHRONIC CONDITION NURSE TO REVIEW MEDICATIONS FOR INTERACTIONS, EFFECTIVENESS OF DRUG THERAPY, AND SIGNS/SYMPTOMS OF ADVERSE REACTIONS. MAY INSTRUCT AND REINFORCE MEDICATION TEACHING RELATED TO THE USE OF MEDICATIONS, DOSAGE, FREQUENCY, PURPOSE, SIDE EFFECTS, AND TO REPORT COMPLICATIONS. [code = MEDICATION MANAGEMENT; RN/OPERATION SUPERVISOR/CHRONIC CONDITION NURSE TO REVIEW MEDICATIONS FOR INTERACTIONS, EFFECTIVENESS OF DRUG THERAPY, AND SIGNS/SYMPTOMS OF ADVERSE REACTIONS. MAY INSTRUCT AND REINFORCE MEDICATION TEACHING RELATED TO THE USE OF MEDICATIONS, DOSAGE, FREQUENCY, PURPOSE, SIDE EFFECTS, AND TO REPORT COMPLICATIONS.] Future Scheduled Test CARDIOVASC ULAR SYSTEM; RN TO ASSESS/TEACH, OPERATION SUPERVISOR/CHRONIC CONDITION NURSE TO OBSERVE/TEACH RELATED TO ALTERED CARDIOVASCULAR STATUS TO MINIMIZE COMPLICATIONS AND REDUCE HOSPITALIZATION. [code = CARDIOVASCULAR SYSTEM; RN TO ASSESS/TEACH, OPERATION SUPERVISOR/CHRONIC CONDITION NURSE TO OBSERVE/TEACH RELATED TO ALTERED CARDIOVASCULAR STATUS TO MINIMIZE COMPLICATIONS AND REDUCE HOSPITALIZATION.] Future Scheduled Test RN TO ASSE SS, OBSERVE, AND EDUCATE; OPERATION SUPERVISOR/CHRONIC CONDITION NURSE TO OBSERVE AND REINFORCE EDUCATION ON ELECTROLYTE IMBALANCES INCLUDING STRATEGIES TO MINIMIZE THE RISK OF HOSPITALIZATION. [code = RN TO ASSESS, OBSERVE, AND EDUCATE; OPERATION SUPERVISOR/CHRONIC CONDITION NURSE TO OBSERVE AND REINFORCE EDUCATION ON ELECTROLYTE IMBALANCES INCLUDING STRATEGIES TO MINIMIZE THE RISK OF HOSPITALIZATION.] Future Scheduled Test RN TO ASSE SS/TEACH, OPERATION SUPERVISOR,CHRONIC CONDITION NURSE TO OBSERVE AND TEACH MEASURES FOR SELF-MANAGEMENT POST A SURGICAL HIP REPLACEMENT OR FEMUR FRACTURE TO MINIMIZE COMPLICATIONS AND REDUCE RISK OF HOSPITALIZATION. [code = RN TO ASSESS/TEACH, OPERATION SUPERVISOR,CHRONIC CONDITION NURSE TO OBSERVE AND TEACH MEASURES FOR SELF-MANAGEMENT POST A SURGICAL HIP REPLACEMENT OR FEMUR FRACTURE TO MINIMIZE COMPLICATIONS AND REDUCE RISK OF HOSPITALIZATION.] Future Scheduled Test PAIN MANAG EMENT; RN TO ASSESS AND TEACH, CHRONIC CONDITION NURSE/OPERATION SUPERVISOR TO OBSERVE AND TEACH AND PROVIDE EDUCATION ON PAIN MANAGEMENT TECHNIQUES. [code = PAIN MANAGEMENT; RN TO ASSESS AND TEACH, CHRONIC CONDITION NURSE/OPERATION SUPERVISOR TO OBSERVE AND TEACH AND PROVIDE EDUCATION ON PAIN MANAGEMENT TECHNIQUES.] Future Scheduled Test FALL REDUC TION MANAGEMENT; RN TO ASSESS AND OBSERVE, OPERATION SUPERVISOR/CHRONIC CONDITION NURSE TO OBSERVE FALL RISK FACTORS AND EDUCATE PATIENT/CAREGIVER ON STRATEGIES TO MINIMIZE THE RISK OF FALLING. [code = FALL REDUCTION MANAGEMENT; RN TO ASSESS AND OBSERVE, OPERATION SUPERVISOR/CHRONIC CONDITION NURSE TO OBSERVE FALL RISK FACTORS AND EDUCATE PATIENT/CAREGIVER ON STRATEGIES TO MINIMIZE THE RISK OF FALLING.] Goal Patient Goal - TO NOT FALL Goal Provider Goal - A PLAN OF CARE WILL BE ESTABLISHED THAT MEETS THE PATIENT S NEEDS. PATIENT WILL DEMONSTRATE OXYGEN SATURATION WITHIN NORMAL LIMITS OR PATIENT S OPTIMAL LEVEL ESTABLISHED BY THE PHYSICIAN THROUGHOUT CARE. CHANGES TO CO-MORBID CONDITIONS AND ANY NEW CONDITIONS WILL BE IDENTIFIED AND REPORTED TO THE PHYSICIAN. Goal Provider Goal - PATIENT/CAREGIVER WILL VERBALIZE UNDERSTANDING OF SIGNS AND SYMPTOMS THAT PUT THE PATIENT AT RISK FOR HOSPITALIZATION /EMERGENCY ROOM VISITS, WHEN TO NOTIFY NURSE/PHYSICIAN OF COMPLICATIONS/DECLINE AND WHEN TO CALL 911. Goal Provider Goal - PATIENT/CAREGIVER TO VERBALIZE, AND CONSISTENTLY DEMONSTRATE EFFECTIVE, SAFE MANAGEMENT OF MEDICATION INCLUDING KNOWLEDGE OF EFFECTIVENESS, POTENTIAL SIDE EFFECTS AND DRUG REACTIONS AND WHEN TO CONTACT THE APPROPRIATE CARE PROVIDER. PATIENT/CAREGIVER WILL BE ABLE TO VERBALIZE UNDERSTANDING OF MEDICATION REGIMEN AND ACCURATELY TAKE MEDICATIONS PRESCRIBED WITHOUT ADVERSE EFFECTS BY 04/04/25 Goal Provider Goal - PATIENT / CAREGIVER WILL VERBALIZE/DEMONSTRATE UNDERSTANDING OF MEASURES TO MANAGE ALTERED CARDIOVASCULAR STATUS BY 04/04/25 Goal Provider Goal - PATIENT/CAREGIVER WILL DEMONSTRATE UNDERSTANDING OF ELECTROLYTE IMBALANCES AND SELF-MANAGE STRATEGIES BY END OF EPISODE. Goal Provider Goal - PATIENT/CAREGIVER WILL DEMONSTRATE UNDERSTANDING OF MEASURES FOR SELF-MANAGEMENT OF A FEMUR FRACTURE OR A POST SURGICAL HIP REPLACEMENT. Goal Provider Goal - PATIENT / CAREGIVER WILL VERBALIZE / DEMONSTRATE UNDERSTANDING OF PAIN CONTROL MEASURES BY 04/04/25 Goal Provider Goal - PATIENT/CAREGIVER WILL VERBALIZE/DEMONSTRATE UNDERSTANDING OF FALL RISK FACTORS AND IMPLEMENT STRATEGIES TO MINIMIZE FALL RISK. PATIENT/CAREGIVER WILL VERBALIZE/DEMONSTRATE AN ABILITY TO ADHERE TO FALL REDUCTION SELF-MANAGEMENT AND LIFE-STYLE CHANGES BY 04/04/25 Encounters Start Date/Time End Date/Time Encounter Type Admission Type Attending [facility] Facility Care Department Encounter ID Discharge Date Discharge Status Discharge Condition Discharge Reason Percent Goals Met 2025-02-04 00:00:00 2025-04-04 00:00:00 Outpatient NEW ADMISSION ALLEGRA [facility]OUT [facility] [id number] 25.00
== END 2025-02-25 13:02 | disposition home or self-care (01) ==
LOC: HO.HMGCLDS 13:01
PROVIDERS: PCP Internal Medicine; Visit Provider Internal Medicine
DX: I10 Essential (primary) hypertension (principal); E78.5 Hyperlipidemia, unspecified; E55.9 Vitamin D deficiency, unspecified; R73.9 Hyperglycemia, unspecified
CPT/HCPCS: 36415; 80053; 80061; 82306; 83036; 84443; 85025